=== PATIENT | female | born 1965 | race Caucasian/White ===

== ENCOUNTER 2016-10-08 12:28 | Emergency (ER) | payer MEDICARE, MEDICAID ==
[~2016-10-08] VITALS: Ht 170.2 cm; Wt 65.8 kg
--- NOTE | 2016-10-08 13:47 | ED Respiratory ---
General Chief Complaint: Dizziness/Syncope Stated Complaint: WEAKNESS/DIZZINESS Nursing Triage Note: c/o feeling dizzy with sore throat and cough. Noticed syptoms this morning. Source: patient Exam Limitations: no limitations History of Present Illness Time seen by provider: 13:36 Initial Comments Yesterday went for a walk with some friends for about 6 miles. She is not accustomed to walking this far. She today feels very wasted tired and has had 2 days of productive cough as well as nasal congestion and ears feeling full. She feels some nausea this morning but this is typical for her and she takes her methotrexate. She is on methotrexate and Humira for reported arthritis. She is concerned she may have contracted an infection and feels a little dehydrated. She states she felt warm but not check for a fever this morning. She denies presently having any nausea or pain outside of her usual joint discomfort. She denies rash, diarrhea. Allergies and Home Medications Allergies Coded Allergies: No Known Drug Allergies (Unverified , 10/08/16) Home Medications Azithromycin 250 Mg Tablet, 250 MG PO UD, #6 Ref 0 TAKE 2 TABLETS ON DAY ONE THEN TAKE 1 TABLET DAILY FOR FOUR MORE DAYS Prescribed by: LATOYA CHEUNG on 10/08/16 1716 Constitutional: see HPI, No chills, No diaphoresis, No fever, malaise, No weakness, No weight gain, No weight loss EENTM: see HPI Respiratory: see HPI, cough (occasional nonproductive), short of breath (mild on exertion), No wheezing Cardiovascular: No chest pain, No edema, No Hx of Intervention, No palpitations , No syncope Gastrointestinal: No abdominal pain, No constipation, No diarrhea, No nausea Genitourinary: No discharge, No dysuria Musculoskeletal: joint pain, No joint swelling (chronic) Skin: No pruritus, No rash Past Vtuinsd-Dctpgb-Djnnpw Hx Patient Social History Alcohol Use: Denies Use Recreational Drug Use: No Smoking Status: Current Everyday Smoker Recent Foreign Travel: No Contact w/Someone Who Travel: No Recent Infectious Disease Expo: No Musculoskeletal Musculoskeletal Disorders: Rheumatoid Arthritis Physical Exam Vital Signs Vital Sign - Last 12Hours 10/08/16 10/08/16 12:48 17:37 Temp 97.8 Pulse 105 Resp 16 B/P (MAP) 125/98 Pulse Ox 98 O2 Delivery Room Air Capillary Refill : Less Than 3 Seconds General Appearance: WD/WN, no apparent distress Eyes: Bilateral Eye EOMI, Bilateral Eye Normal Inspection, Bilateral Eye PERRL HEENT: PERRL/EOMI, normal ENT inspection, TMs normal, pharynx normal Neck: non-tender, supple, normal inspection Respiratory: chest non-tender, lungs clear, normal breath sounds, no respiratory distress, no accessory muscle use Cardiovascular: normal peripheral pulses, regular rate, rhythm, no murmur Gastrointestinal: normal bowel sounds, non tender, soft Extremities: normal range of motion, non-tender, normal inspection, no pedal edema, normal capillary refill, calf tenderness (bilateral), other (Toussaint's sign positive) Neurologic/Psychiatric: no motor/sensory deficits, alert, oriented x 3 Skin: normal color, warm/dry Focused Exam Evaluation Sepsis Stage: Ruled Out Reason for ruling out sepsis: no source or sign of bacterial infection found Time of Focused Exam: 13:45 Respiratory: Chest Non Tender, Lungs Clear, Normal Breath Sounds, No Accessory Muscle Use, No Respiratory Distress Cardiovascular: Regular Rate, Rhythm, No Edema, No Murmur, Normal Peripheral Pulses Capillary Refill: Less Than 3 Seconds Peripheral Pulses: 2+ Dorsalis Pedis (R), 2+ Left Dors-Pedis (L), 2+ Radial Pulses (R), 2+ Radial Pulses (L) Skin: normal color, warm/dry, No rash Lactic Acid Level Laboratory Tests Test 10/08/16 13:55 Lactic Acid Level 0.96 MMOL/L (0.50-2.00) Progress/Results/Core Measures Results/Orders Lab Results Laboratory Tests Test 10/08/16 13:55 10/08/16 14:00 10/08/16 14:52 Range/Units White Blood Count 6.4 4.3-11.0 10^3/uL Red Blood Count 4.58 4.35-5.85 10^6/uL Hemoglobin 14.4 11.5-16.0 G/DL Hematocrit 44 35-52 % Mean Corpuscular Volume 97 80-99 FL Mean Corpuscular Hemoglobin 31 25-34 PG Mean Corpuscular Hemoglobin Concent 33 32-36 G/DL Red Cell Distribution Width 18.1 H 10.0-14.5 % Platelet Count 211 130-400 10^3/uL Mean Platelet Volume 10.8 H 7.4-10.4 FL Neutrophils (%) (Auto) 64 42-75 % Lymphocytes (%) (Auto) 24 12-44 % Monocytes (%) (Auto) 9 0-12 % Eosinophils (%) (Auto) 3 0-10 % Basophils (%) (Auto) 1 0-10 % Neutrophils # (Auto) 4.1 1.8-7.8 X 10^3 Lymphocytes # (Auto) 1.6 1.0-4.0 X 10^3 Monocytes # (Auto) 0.6 0.0-1.0 X 10^3 Eosinophils # (Auto) 0.2 0.0-0.3 10^3/uL Basophils # (Auto) 0.0 0.0-0.1 10^3/uL D-Dimer 2.79 H 0.00-0.49 UG/ML Sodium Level 141 135-145 MMOL/L Potassium Level 3.9 3.6-5.0 MMOL/L Chloride Level 111 H 98-107 MMOL/L Carbon Dioxide Level 21 21-32 MMOL/L Anion Gap 9 5-14 MMOL/L Blood Urea Nitrogen 10 7-18 MG/DL Creatinine 0.69 0.60-1.30 MG/DL Estimat Glomerular Filtration Rate > 60 BUN/Creatinine Ratio 14 Glucose Level 93 70-105 MG/DL Lactic Acid Level 0.96 0.50-2.00 MMOL/L Calcium Level 9.9 8.5-10.1 MG/DL Total Bilirubin 0.4 0.1-1.0 MG/DL Aspartate Amino Transf (AST/SGOT) 52 H 5-34 U/L Alanine Aminotransferase (ALT/SGPT) 91 H 0-55 U/L Alkaline Phosphatase 68 40-136 U/L Total Creatine Kinase 41 29-168 U/L Troponin I < 0.30 <0.30 NG/ML C-Reactive Protein High Sensitivity 0.23 0.00-0.50 MG/DL Total Protein 7.6 6.4-8.2 G/DL Albumin 4.3 3.2-4.5 G/DL Urine Color YELLOW Urine Clarity CLEAR Urine pH 5 5-9 Urine Specific [place] 1.015 L 1.016-1.022 Urine Protein NEGATIVE NEGATIVE Urine Glucose (UA) NEGATIVE NEGATIVE Urine Ketones NEGATIVE NEGATIVE Urine Nitrite NEGATIVE NEGATIVE Urine Bilirubin NEGATIVE NEGATIVE Urine Urobilinogen NORMAL NORMAL MG/DL Urine Leukocyte Esterase NEGATIVE NEGATIVE Urine RBC (Auto) NEGATIVE NEGATIVE Urine RBC NONE /HPF Urine WBC 0-2 /HPF Urine Squamous Epithelial Cells 0-2 /HPF Urine Crystals NONE /LPF Urine Bacteria NEGATIVE /HPF Urine Casts NONE /LPF Urine Mucus NEGATIVE /LPF Urine Culture Indicated NO Urine Test NEGATIVE NEGATIVE Group A Streptococcus Screen NEGATIVE NEGATIVE My Orders Orders - LATOYA CHEUNG Cbc With Automated Diff (10/08/16 13:50) Comprehensive Metabolic Panel (10/08/16 13:50) Creatine Kinase (10/08/16 13:50) Fibrin Degradation Products (10/08/16 13:50) Hcg,Qualitative Urine (10/08/16 13:50) Lactic Acid Analyzer (10/08/16 13:50) Rapid Strep A Screen (10/08/16 13:50) Troponin I (10/08/16 13:50) Ua Culture If Indicated (10/08/16 13:50) Chest Pa/Lat (2 View) (10/08/16 13:50) Hs C Reactive Protein (10/08/16 13:50) Ns Iv 1000 Ml (Sodium Chloride 0.9%) (10/08/16 14:00) Ns Iv 500 Ml (Sodium Chloride 0.9%) (10/08/16 16:00) Ct Angio Chest W (10/08/16 15:52) Iohexol Injection (Omnipaque 350 Mg/Ml 1 (10/08/16 16:00) Ns (Ivpb) (Sodium Chloride 0.9% Ivpb Bag (10/08/16 16:00) Medications Given in ED Current Medications Medications Dose Ordered Sig/Tyrel Route Start Time Stop Time Status Last Admin Dose Admin Iohexol 150 ml ONCE ONCE IV 10/08/16 16:00 10/08/16 16:19 DC 10/08/16 16:09 125 ML Sodium Chloride 100 ml ONCE ONCE IV 10/08/16 16:00 10/08/16 16:19 DC 10/08/16 16:09 80 ML Vital Signs/I&O Vital Sign - Last 12Hours 10/08/16 10/08/16 12:48 17:37 Temp 97.8 97.8 Pulse 105 86 Resp 16 16 B/P (MAP) 125/98 Pulse Ox 98 O2 Delivery Room Air Room Air Blood Pressure Mean: 107 Progress Note #1: Time: 15:51 Progress Note CRP unremarkable. White blood cell count unreliable because of the humerus and methotrexate. The patient feels still [id number] short of breath and dizzy at times. This could be consistent with a pulmonary embolism. Also be consistent with having overdone it the other day on the trail. We will go ahead and get a CT with angiogram because she is with a spurious finding of possible lower left lower lobe density versus nipple shadow on the chest x-ray as well. She is a chronic pro-inflammatory state but has not been sedentary. She does have bilateral calf tenderness and Homans positive. Progress Note #2: Time: 17:07 Progress Note Discussed the findings and incidental findings of the patient and is felt this time she probably got URI with postnasal drip causing some myalgias probably from a virus. She also probably overdid it the other day on her walk and would do well to spend a day or 2 with a bottle of Gatorade and copious amounts of comfort foods and fluids. She should use Tylenol if she is having pain. Diagnostic Imaging Diagonstic Imaging: Xray Plain Films/CT/US/NM/MRI: chest Comments NAME: YELENAKHOI [facility] REC#: [id number] PHYSICIAN: LATOYA CHEUNG MD CC: SETH PUGA; LATOYA CHEUNG Page 1 of 1 RADIOLOGY REPORT VIA [facility] [place], [place] CC: SETH PUGA; LATOYA CHEUNG Page 1 of 1 RADIOLOGY REPORT NAME: KHOI KIRK [facility] REC#: [id number] PT STATUS: REG ER : 1965 PHYSICIAN: LATOYA CHEUNG MD ADMIT DATE: 10/08/16/ER Signed Date of Exam: 10/08/16 CHEST PA/LAT (2 VIEW) INDICATION: Cough and chest heaviness. FINDINGS: PA and lateral views of the chest were obtained. The heart size is normal. There is no pleural effusion or pneumothorax. Mediastinum is unremarkable. There is a nodular density in the left lung base. This may be nipple shadow. IMPRESSION: Nodular density in the left lung base. This may be nipple shadow. This could be confirmed with a repeat exam with nipple markers or CT chest. No other acute cardiopulmonary abnormality. Dictated by: Dictated on workstation # [id number] Dict: 10/08/16 1508 Trans: 10/08/16 1525 Interpreted by: SETH PUGA Electronically signed by: SETH PUGA 10/08/16 1525 Reviewed: Reviewed by Me Diagonstic Imaging: CT (angio) Plain Films/CT/US/NM/MRI: chest Comments VIA [facility] [place], [place] NAME: KHOI KIRK [facility] REC#: [id number] PT STATUS: REG ER : 1965 PHYSICIAN: LATOYA CHEUNG MD ADMIT DATE: 10/08/16/ER Draft Date of Exam:10/08/16 CT ANGIO CHEST W PROCEDURE: CT angiography of the chest with contrast. TECHNIQUE: Multiple contiguous axial images were obtained through the chest after uneventful bolus administration of intravenous contrast. Reconstructed CTA MIP acquisitions were also performed. INDICATION: Chest heaviness, productive cough. COMPARISON: There are no previous CTA chest examinations available for comparison. FINDINGS: The plain film examination of the chest performed earlier today failed to show any sign of an acute abnormality. On this study there is no defect within the pulmonary arteries to indicate a pulmonary embolus. The ascending aorta is slightly dilated, however, measuring 4.0 cm in maximum AP and transverse diameters. There is no sign of a dissection. The heart size is within normal limits. There is no mediastinal or hilar adenopathy. The lungs are generally clear. There is no evidence for failure, pneumonia or for a pleural effusion. The plain film exam raised the question of a nodular density overlying the left lung base. There is no parenchymal nodule in this area and I suspect the density seen on the plain film exam was related to superimposition. There is no mediastinal or hilar adenopathy. The sections through the upper abdomen failed to show any sign of an acute abnormality The liver is prominent and of lower density than usually seen. 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 There is no obvious breast mass identified. According to our records, the patient has not had a mammogram in more than two years. Mammography would be recommend for further study. The bone windows show no sign of a fracture or for a destructive lesion. IMPRESSION: 1. There is no evidence for an acute cardiopulmonary abnormality. In particular, there is no sign of a pulmonary embolus. 2. The ascending aorta is borderline enlarged. There is no evidence for a dissection. 3. The appearance of the liver does suggest fatty metamorphosis. 4. There is no obvious breast mass. Recommendations as above. Dictated on workstation # [id number] Dict: 10/08/16 1628 Trans: 10/08/[address] [facility] [id number] Interpreted by: TERE GARCIAS MD Electronically signed by: Departure Impression Impression: Primary Impression: SOB (shortness of breath) on exertion Additional Impressions: Myalgia Pharyngitis Qualified Codes: J02.9 - Acute pharyngitis, unspecified Disposition: HOME, SELF-CARE Condition: Improved Departure-Patient Inst. Decision time for Depature: 17:09 Referrals: NO,LOCAL PHYSICIAN (PCP) Primary Care Physician Patient Instructions: Sore Throat, Adult (DC) Add. Discharge Instructions: You have been worked up extensively to exclude shortness of breath and chest discomfort from your heart or from a pulmonary embolism, a clot in the lungs. Your symptoms seem to be due more from a upper respiratory infection likely a virus that is causing muscle aches and sore throat. A rapid strep test was negative and a culture is been sent and will be available within 2-3 days if you call to the ER for results. You did have some elevated liver enzymes and a fatty liver seen on the CAT scan. This should be followed up by your primary care physician eventually. Incidentally on your CAT scan you're found to have a mildly dilated ascending aorta of 4.0 cm. This is of no concern today but should be followed by primary care physician. The nodule seen on your chest x-ray was not seen on your CAT scan is probably due to superimposition. If you're having worsening pain, shortness of breath, weakness or other worrisome symptoms should return to the ER otherwise he can follow-up in the next week or 2 with a primary care. If you do not have a primary care physician you should establish with one. 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 Take with food. All discharge instructions reviewed with patient and/or family. Voiced understanding. Scripts Azithromycin (Azithromycin) 250 Mg Tablet 250 MG PO UD, #6 TAB 0 Refills TAKE 2 TABLETS ON DAY ONE THEN TAKE 1 TABLET DAILY FOR FOUR MORE DAYS Prov: LATOYA CHEUNG 10/08/16 Work/School Note: Work Release Form Date Seen in the Emergency Department: Oct 08, 2016 Return to Work: Oct 09, 2016 Restrictions: No Restrictions LATOYA CHEUNG Oct 08, 2016 13:47
[2016-10-08] MEDS ORDERED: NS IV 1000 ML 1,000 ML IV SCH (14:00)
[2016-10-08 14:15] LABS: BASOPHILS % (AUTO) 1 % (0-10); EOSINOPHILS # (AUTO) 0.2 10^3/uL (0.0-0.3); EOSINOPHILS % (AUTO) 3 % (0-10); LYMPHOCYTES # (AUTO) 1.6 X 10^3 (1.0-4.0); LYMPHOCYTES % (AUTO) 24 % (12-44); MEAN CORPUSCULAR HEMOGLOBIN 31 PG (25-34); MEAN CORPUSCULAR HGB CONC 33 G/DL (32-36); MEAN CORPUSCULAR VOLUME 97 FL (80-99); MEAN PLATELET VOLUME 10.8 FL (7.4-10.4); MONOCYTES # (AUTO) 0.6 X 10^3 (0.0-1.0); MONOCYTES % (AUTO) 9 % (0-12); NEUTROPHILS # (AUTO) 4.1 X 10^3 (1.8-7.8); NEUTROPHILS % (AUTO) 64 % (42-75); PLATELET COUNT 211 10^3/uL (130-400); RED BLOOD COUNT 4.58 10^6/uL (4.35-5.85); RED CELL DISTRIBUTION WIDTH 18.1 % (10.0-14.5); WHITE BLOOD COUNT 6.4 10^3/uL (4.3-11.0)
[2016-10-08 14:24] LABS: BILIRUBIN,URINE NEGATIVE (NEGATIVE); KETONES,URINE NEGATIVE (NEGATIVE); LEUKOCYTE ESTERASE ,URINE NEGATIVE (NEGATIVE); NITRITE,URINE NEGATIVE (NEGATIVE); PH,URINE 5 (5-9); PROTEIN,URINE NEGATIVE (NEGATIVE); UROBILINOGEN,URINE NORMAL (NORMAL)
[2016-10-08 14:38] LABS: ALANINE AMINOTRANSFERASE 91 U/L (0-55); ALBUMIN 4.3 G/DL (3.2-4.5); ANION GAP 9 MMOL/L (5-14); ASPARTATE AMINO TRANSFERASE 52 U/L (5-34); BILIRUBIN,TOTAL 0.4 MG/DL (0.1-1.0); BLOOD UREA NITROGEN 10 MG/DL (7-18); BUN/CREATININE RATIO 14; CALCIUM 9.9 MG/DL (8.5-10.1); CARBON DIOXIDE 21 MMOL/L (21-32); CHLORIDE 111 MMOL/L (98-107); CREATINE KINASE 41 U/L (29-168); CREATININE SERUM 0.69 MG/DL (0.60-1.30); GFR ESTIMATED > 60; GLUCOSE 93 MG/DL (70-105); POTASSIUM 3.9 MMOL/L (3.6-5.0); SODIUM 141 MMOL/L (135-145); TOTAL PROTEIN 7.6 G/DL (6.4-8.2); hs C REACTIVE PROTEIN 0.23 MG/DL (0.00-0.50)
[2016-10-08 14:41] LABS: SQUAMOUS EPITHELIAL CELL,UR 0-2 /HPF; WBC,URINE 0-2 /HPF
[2016-10-08 14:44] LABS: TROPONIN I < 0.30 NG/ML (<0.30)
--- NOTE | 2016-10-08 15:19 | Diagnostic Imaging Report ---
INDICATION: Cough and chest heaviness. FINDINGS: PA and lateral views of the chest were obtained. The heart size is normal. There is no pleural effusion or pneumothorax. Mediastinum is unremarkable. There is a nodular density in the left lung base. This may be nipple shadow. IMPRESSION: Nodular density in the left lung base. This may be nipple shadow. This could be confirmed with a repeat exam with nipple markers or CT chest. No other acute cardiopulmonary abnormality. Dictated by: Dictated on workstation # [id number]
[2016-10-08] MEDS ORDERED: NS IV 500 ML 500 ML IV SCH (16:00)
[2016-10-08] MEDS ORDERED: IOHEXOL 350 MG/ML 150 ML (OMNIPAQUE 350) VIAL IV ONE (16:00)
[2016-10-08] MEDS ORDERED: NS 100 ML (IVPB) BAG IV ONE (16:00)
--- NOTE | 2016-10-08 16:54 | Diagnostic Imaging Report ---
PROCEDURE: CT angiography of the chest with contrast. TECHNIQUE: Multiple contiguous axial images were obtained through the chest after uneventful bolus administration of intravenous contrast. Reconstructed CTA MIP acquisitions were also performed. INDICATION: Chest heaviness, productive cough. COMPARISON: There are no previous CTA chest examinations available for comparison. FINDINGS: The plain film examination of the chest performed earlier today failed to show any sign of an acute abnormality. On this study there is no defect within the pulmonary arteries to indicate a pulmonary embolus. The ascending aorta is borderline dilated, however, measuring 4.0 cm in maximum AP and transverse diameters. There is no sign of a dissection. The heart size is within normal limits. There is no mediastinal or hilar adenopathy. The lungs are generally clear. There is no evidence for failure, pneumonia or for a pleural effusion. The plain film exam raised the question of a nodular density overlying the left lung base. There is no parenchymal nodule in this area and I suspect the density seen on the plain film exam was related to superimposition. There is no mediastinal or hilar adenopathy. The sections through the upper abdomen failed to show any sign of an acute abnormality The liver is prominent and of lower density than usually seen. 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 There is no obvious breast mass identified. According to our records, the patient has not had a mammogram in more than two years. Mammography would be recommend for further study. The bone windows show no sign of a fracture or for a destructive lesion. IMPRESSION: 1. There is no evidence for an acute cardiopulmonary abnormality. In particular, there is no sign of a pulmonary embolus. 2. The ascending aorta is borderline enlarged. There is no evidence for a dissection. 3. The appearance of the liver does suggest fatty metamorphosis. 4. There is no obvious breast mass. Recommendations as above. Dictated by: Dictated on workstation # [id number]
[2016-10-08] MEDS ORDERED: AZIT250T5 PO (17:16)
[2016-10-08 17:37] VITALS: BP 125/88
== END 2016-10-08 17:37 | disposition home or self-care (01) ==
LOC: EDUNIT# 12:28 → ER 12:31
DX: J02.9 Acute pharyngitis, unspecified (principal); R06.02 Shortness of breath; F17.210 Nicotine dependence, cigarettes, uncomplicated
CPT/HCPCS: 36415; 71020; 71275; 80053; 81000; 82550; 83605; 84484; 84703; 85025; 85379; 86141; 87430

== ENCOUNTER 2017-01-01 19:43 | Emergency (ER) | payer MEDICARE, MEDICAID ==
[~2017-01-01] VITALS: Ht 170.2 cm; Wt 65.8 kg
[~2017-01-01 19:43] MED LIST: AZIT250T5 PO
--- OUTSIDE RECORDS SUMMARY | 2017-01-01 19:50 | XMS REPORT | Continuity of Care Document ---
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
--- OUTSIDE RECORDS SUMMARY | 2017-01-01 19:50 | XMS REPORT | Clinical Summary ---
Author Author [facility] Organization [facility] Address Unknown Phone Unavailable Care Team Providers Care Library Acquisitions Technician Name Role Phone PCP Unavailable Source Comments Some departments are not documenting in the electronic medical record. If you do not see the information that you expected, contact Release of Information in the Health Information Management department at [phone] for further assistance in locating additional records.[facility] Allergies Active Allergy Reactions Severity Noted Date Comments Prednisone MENTAL STATUS CHANGES Medium 05/30/2016 Agitation and confusion Current Medications Prescription Sig. Disp. Refills Start End Date Status Date clindamycin(+) (CLEOCIN Apply to bumps on neck, 60 mL 3 01/24/20 Active T; CLINDAMAX) 1 % topical back and buttock twice 16 lotion daily. Aloe Vera 5,000 mg cap Take 1 Cap by mouth Active daily. MULTIVITAMIN WITH Take 1 Tab by mouth Active MINERALS (MULTIVITAMIN & daily. MINERAL FORMULA PO) other medication Take 1 Dose by mouth Active daily. Aqua Tg Silver docusate (COLACE) 100 mg Take 1 Cap by mouth twice 60 Cap 0 06/08/19 Active capsule daily. 17 sertraline (ZOLOFT) 50 mg Take 1 Tab by mouth 60 Tab 0 06/13/19 Active tablet daily. 17 methotrexate sodium Take 10 Tabs by mouth 120 Tab 1 10/03/19 Active (RHEUMATREX) 2.5 mg every 7 days. 17 tablet ondansetron (ZOFRAN) 4 mg Take 1 Tab by mouth every 60 Tab 1 10/03/19 Active tablet 8 hours as needed for 17 Nausea or Vomiting. chlorzoxazone(+) (PARAFON Take 1 Tab by mouth twice 60 Tab 0 10/03/19 Active FORTE) 500 mg tablet daily. 17 folic acid (FOLVITE) 1 mg Take 2 Tabs by mouth 180 Tab 3 10/03/19 Active tablet daily. 17 adalimumab(+) (HUMIRA Inject 40 mg under the 6 Each 1 11/07/19 Active PEN) 40 mg/0.8 mL skin every 14 days. 17 injection penIndications: Indications: RHEUMATOID RHEUMATOID ARTHRITIS ARTHRITIS traMADol (ULTRAM) 50 mg Take 1-2 tab every 6 120 Tab 2 11/24/19 Active tablet hours as needed for pain. 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 Back pain 02/21/2016 Overview: Hx injury 7 years ago falling down stairs Per pt herniated disc and spinal stenosis Constipation 02/21/2016 Last Assessment & Plan: See above Rheumatoid arthritis involving multiple sites ([facility]) 12/17/2015 S/P cholecystectomy 12/17/2015 Fever 12/17/2015 Cervical cancer ([facility]) 12/17/2015 Overview: Early 20s Urinary incontinence 12/17/2015 Overview: Large leak on exam with valsalva 5 pads /day Last Assessment & Plan: Timed and double void Avoid constipation - daily miralax Decrease soda MRI of back~ Lumbar and Sacral MRI URD with and without pessary Bactrim 2 doses Erx and reviewed dosing FU 4 months Encounters Date Type Specialty Care Team Description 12/22/2016 Telephone Allergy,Immunology and Roro Jama MD Follow- up Phone Call Rheumatology 12/05/2016 Telephone Allergy,Immunology and Roro Jama MD Prior Authorization Rheumatology ([facility]) 11/27/2016 Telephone Allergy,Immunology and Roro Jama MD Medication Follow-up Rheumatology 11/20/2016 Refill Allergy,Immunology and Roro Jama MD Rheumatology 11/03/2016 Telephone Allergy,Immunology and Roro Jama MD Prior Authorization Rheumatology (Humira ); Lab Request (Hair follicle testing ) 11/03/2016 Telephone Clinical Pharmacology Roro Jama MD Error ( disregard) 10/26/2016 Telephone Clinical Pharmacology Roro Jama MD Medication Follow-up (Chlorzoxazone non-formulary) 10/25/2016 Telephone Allergy,Immunology and Roro Jama MD Follow- up Phone Call Rheumatology 10/24/2016 Telephone Allergy,Immunology and Roro Jama MD Results Rheumatology 10/23/2016 Hospital Roro Jama MD Rheumatoid arthritis with Encounter rheumatoid factor of multiple sites without organ or systems involvement (HCC) 10/23/2016 Office Visit Allergy,Immunology and Roro Jama MD Rheumatoid arthritis Rheumatology involving multiple sites with positive rheumatoid factor (HCC) (Primary Dx) 10/23/2016 Telephone Allergy,Immunology and Roro Jama MD Follow- up Phone Call Rheumatology 10/16/2016 Telephone Allergy,Immunology and Roro Jama MD Medication Follow-up Rheumatology 10/09/2016 Telephone Allergy,Immunology and Roro Jaam MD Medication Follow-up Rheumatology 10/09/2016 Telephone Allergy,Immunology and Roro Jama MD Follow- up Phone Call Rheumatology 10/02/2016 Telephone Allergy,Immunology and Roro Jama MD Follow- up Phone Call; Rheumatology Medication Refill from Last 3 Months Immunizations Name Dates Previously Given Next Due Pneumococcal Vaccine 07/24/2016 (23-Sudha Adult) Pneumococcal 12/17/2015 Vaccine(13-Sudha Peds/immunocompromised adult) Family History Medical History Relation Name Comments Heart Disease Father Heart Disease Paternal Grandmother Tumor Son Relation Name Status Comments Brother Alive Daughter Alive Father Alive Mother Alive Paternal Grandmother Sister Alive Son Alive Social History Tobacco Use Types Packs/Day Years Used Date Current Every Day Smoker Cigarettes 0.25 30 Smokeless Tobacco: Never Used Tobacco Cessation: Ready to Quit: Yes; Counseling Given: Yes Comments: in process of quitting Alcohol Use Drinks/Week oz/Week Comments No 0 Standard 0.0 drinks or equivalent Sex Assigned at Date Recorded Not on file Last Filed Vital Signs Vital Sign Reading Time Taken Blood Pressure 115/84 10/23/2016 9:23 AM CDT Pulse 72 10/23/2016 9:23 AM CDT Temperature 37.1 C (98.8 F) 10/23/2016 9:23 AM CDT Respiratory Rate 16 07/24/2016 10:51 AM CDT Oxygen Saturation 100% 06/08/2016 3:17 PM 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 - - Concentration Weight 65.5 kg (144 lb 6.4 oz) 10/23/2016 9:23 AM CDT Height 170.2 cm (5' 7") 10/23/2016 9:23 AM CDT Body Mass Index 22.62 10/23/2016 9:23 AM CDT Plan of Treatment Health Maintenance Due Date Last Done Comments PHYSICAL (COMPREHENSIVE) 1971 EXAM PERTUSSIS VACCINE 1975 TETANUS VACCINE 1981 CERVICAL CANCER SCREENING 1994 BREAST CANCER SCREENING 2004 COLORECTAL CANCER 2014 SCREENING INFLUENZA VACCINE 12/29/2016 HEPATITIS C SCREENING Completed 12/22/2015 Implants 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 [employer]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 Device Expiration Model / Identifier Date Serial / Lot Cement Bone Palacos Lv+G Gentamicin Right: CHRISTEN:CHRISTEN 01/27/2018 [id number] 40gm Green Elbow US 1 / Implanted: Qty: 2 on 06/07/2016 by [id number] Иван Martinez MD 1 [id number] Humeral Screw Kit Right: CHRISTEN:CHRISTEN 11/27/2025 [id number] Implanted: Qty: 1 on 06/07/2016 by Elbow US 0 / Иван Martinez MD [id number] Christen Nexel Total Elbow Ulnar Right: 04/29/2025 [id number] Component Elbow 7 / Implanted: Qty: 1 on 06/07/2016 by [id number] Иван Martinez MD [id number] Stem Humeral 100mm 4mm Elbow Right: CHRISTEN: ORTHO 08/27/2025 [id number] Implanted: Qty: 1 on 06/07/2016 by Mikey 0 / Иван Martinez MD [id number] Kit Articulation Nexel 4 Right: UNIDENTIFIED 10/28/2019 Implanted: Qty: 1 on 06/07/2016 by Mikey [facility] [place] Иван Martinez MD [id number] Results * CBC AND DIFF (10/23/2016 10:44 AM) Component Value Ref Range White Blood Cells 10.3 4.5 - 11.0 K/UL RBC 4.57 4.0 - 5.0 M/UL Hemoglobin 14.8 12.0 - 15.0 GM/DL Hematocrit 43.6 36 - 45 % MCV 95.4 80 - 100 FL MCH 32.4 26 - 34 PG MCHC 34.0 32.0 - 36.0 G/DL RDW 18.0 (H) 11 - 15 % Platelet Count 346 150 - 400 K/UL MPV 8.5 7 - 11 FL Neutrophils 62 41 - 77 % Lymphocytes 26 24 - 44 % Monocytes 8 4 - 12 % Eosinophils 3 0 - 5 % Basophils 1 0 - 2 % Absolute Neutrophil Count 6.40 1.8 - 7.0 K/UL Absolute Lymph Count 2.70 1.0 - 4.8 K/UL Absolute Monocyte Count 0.90 (H) 0 - 0.80 K/UL Absolute Eosinophil Count 0.30 0 - 0.45 K/UL Absolute Basophil Count 0.10 0 - 0.20 K/UL Specimen Performing Laboratory Blood MAIN LAB [address] [place] [address] * C REACTIVE PROTEIN (CRP) (10/23/2016 10:44 AM) Component Value Ref Range C-Reactive Protein 0.23 <1.0 MG/DL Specimen Performing Laboratory Blood MAIN [facility] [address] [place] [address] * COMPREHENSIVE METABOLIC PANEL (10/23/2016 10:44 AM) Component Value Ref Range Sodium 141 137 - 147 MMOL/L Potassium 4.3 3.5 - 5.1 MMOL/L Chloride 107 98 - 110 MMOL/L Glucose 88 70 - 100 MG/DL Blood Urea Nitrogen 13 7 - 25 MG/DL Creatinine 0.80 0.4 - 1.00 MG/DL Calcium 9.9 8.5 - 10.6 MG/DL Total Protein 7.9 6.0 - 8.0 G/DL Total Bilirubin 0.3 0.3 - 1.2 MG/DL Albumin 4.6 3.5 - 5.0 G/DL Alk Phosphatase 67 25 - 110 U/L AST (SGOT) 19 7 - 40 U/L CO2 28 21 - 30 MMOL/L ALT (SGPT) 19 7 - 56 U/L Anion Gap 6 3 - 12 eGFR Non >60 >60 mL/min Comment: The eGFR is not validated for use in drug dosing adjustments. Continue to use estimated creatinine clearance per dosing reference text. Please contact the Clinical Pharmacist for questions. eGFR >60 >60 mL/min Comment: The eGFR is not validated for use in drug dosing adjustments. Continue to use estimated creatinine clearance per dosing reference text. Please contact the Clinical Pharmacist for questions. Specimen Performing Laboratory Blood [facility] [address] [place] [address] from Last 3 Months
--- OUTSIDE RECORDS SUMMARY | 2017-01-01 19:51 | XMS REPORT | Encounter Summary ---
Author Author [facility] Organization [facility] Address Unknown Phone Unavailable Care Team Providers Care In Home Nanny Name Role Phone PCP Unavailable Reason for Visit * Reason Comments Follow-up Phone Call Encounter Details Date Type Department Care Team Description 10/25/2016 Telephone [facility] Roro Jama MD Follow-up Phone Call Physicians - Internal [address] [facility] Medicine [place] [address] [facility] [place] [address] OFFICE BLDG [phone] [address] [place] [address] Social History Tobacco Use Types Packs/Day Years Used Date Current Every Day Smoker Cigarettes 0.25 30 Smokeless Tobacco: Never Used Comments: in process of quitting Alcohol Use Drinks/Week oz/Week Comments No 0 Standard 0.0 drinks or equivalent Sex Assigned at Date Recorded Not on file as of this encounter Functional Status Functional Status Response Date of Assessment Does the patient have a hearing impairment: No 06/08/2016 Does the patient have a visual impairment: No 06/08/2016 Does the patient have impaired ambulation: No 06/08/2016 Does the patient have an activity of daily living No 06/08/2016 (ADL) impairment: Does the patient have an instrumental activity of No 06/08/2016 daily living (IADL) impairment: Cognitive Status Response Date of Assessment Does the patient have a cognitive impairment: No 06/08/2016 as of this encounter Plan of Treatment Not on fileas of this encounter Visit Diagnoses Not on filein this encounter
--- OUTSIDE RECORDS SUMMARY | 2017-01-01 19:51 | XMS REPORT | Encounter Summary ---
Author Author [facility] Organization [facility] Address Unknown Phone Unavailable Care Team Providers Care Chief Writer Name Role Phone PCP Unavailable Reason for Visit * Reason Comments Medication Refill Encounter Details Date Type Department Care Team Description 11/20/2016 Refill [facility] Roro Jama MD Physicians - Internal [address] [facility] Medicine [place] [address] [facility] [place] [address] OFFICE BLDG [phone] [address] [address] Social History Tobacco Use Types [...]
--- OUTSIDE RECORDS SUMMARY | 2017-01-01 19:51 | XMS REPORT | Encounter Summary ---
Author Author [facility] Organization [facility] Address Unknown Phone Unavailable Care Team Providers Care Skip Tender Name Role Phone PCP Unavailable Reason for Visit * Reason Comments Medication Follow-up Chlorzoxazone non-formulary Encounter Details Date Type Department Care Team Description 10/26/2016 Telephone [facility] Roro Jama MD Medication Follow-up Physicians - Clinical [address] (Chlorzoxazone Pharmacology [place] 10[address] non-formulary) [address] [place] [address] PAV [phone] [place] [address] Social History Tobacco Use Types Packs/Day Years [...]
--- OUTSIDE RECORDS SUMMARY | 2017-01-01 19:51 | XMS REPORT | Encounter Summary ---
Author Author [facility] Organization [facility] Address Unknown Phone Unavailable Care Team Providers Care Instrument Setter Name Role Phone PCP Unavailable Reason for Visit * Reason Comments Results Encounter Details Date Type Department Care Team Description 10/24/2016 Telephone [facility] Roro Jama MD Results Physicians - Internal [address] [facility] Medicine [place] [address] [facility] [place] [address] OFFICE BLDG [phone] [address] [place] [address] Social History Tobacco Use Types [...]
--- OUTSIDE RECORDS SUMMARY | 2017-01-01 19:51 | XMS REPORT | Encounter Summary ---
Author Author [facility] Organization [facility] Address Unknown Phone Unavailable Care Team Providers Care Community Outreach Specialist Name Role Phone PCP Unavailable Reason for Visit * Reason Comments Error disregard Encounter Details Date Type Department Care Team Description 11/03/2016 Telephone [facility] Roro Jama MD Error ( disregard) Physicians - Clinical [address] Pharmacology [place] [address] [place] [address] PAV [phone] [place] [address] Social History Tobacco Use Types Packs/Day Years [...]
--- OUTSIDE RECORDS SUMMARY | 2017-01-01 19:51 | XMS REPORT | Encounter Summary ---
Author Author [facility] Organization [facility] Address Unknown Phone Unavailable Care Team Providers Care Digital Imaging Specialist Name Role Phone PCP Unavailable Reason for Visit * Reason Comments Medication Follow-up Encounter Details Date Type Department Care Team Description 10/16/2016 Telephone [facility] Roro Jama MD Medication Follow-up Physicians - Internal [address] [facility] Medicine [place] [address] [facility] [place] [address] OFFICE BLDG [phone] [address] [address] Social History Tobacco Use Types [...]
--- OUTSIDE RECORDS SUMMARY | 2017-01-01 19:51 | XMS REPORT | Encounter Summary ---
Author Author [facility] Organization [facility] Address Unknown Phone Unavailable Care Team Providers Care Duty Officer Name Role Phone PCP Unavailable Reason for Visit * Reason Comments Medication Follow-up Encounter Details Date Type Department Care Team Description 11/27/2016 Telephone [facility] Roro Jama MD Medication Follow-up Physicians - Internal [address] [facility] Medicine [place] [address] [facility] [place] [address] OFFICE BLDG [phone] [address] [place] [address] Social History Tobacco Use Types [...]
--- OUTSIDE RECORDS SUMMARY | 2017-01-01 19:51 | XMS REPORT | Encounter Summary ---
Author Author [facility] Organization [facility] Address Unknown Phone Unavailable Care Team Providers Care Security And Privacy Consultant Name Role Phone PCP Unavailable Reason for Visit * Reason Comments Medication Follow-up Encounter Details Date Type Department Care Team Description 10/09/2016 Telephone [facility] Roro Jama MD Medication Follow-up Physicians - Internal [address] [facility] Medicine [place] [address] [facility] [place] [address] OFFICE BLDG [phone] [address] [place] [address] Social History Tobacco Use Types [...]
--- OUTSIDE RECORDS SUMMARY | 2017-01-01 19:51 | XMS REPORT | Encounter Summary ---
Author Author [facility] Organization [facility] Address Unknown Phone Unavailable Care Team Providers Care Academic Coach Name Role Phone PCP Unavailable Reason for Visit * Reason Comments Follow-up Phone Call Encounter Details Date Type Department Care Team Description 12/22/2016 Telephone [facility] Roro Jama MD Follow-up Phone Call Physicians - Internal [address] [facility] Medicine [place] [address] [facility] [place] [address] OFFICE BLDG [phone] [address] [address] Social History Tobacco Use Types [...]
--- OUTSIDE RECORDS SUMMARY | 2017-01-01 19:51 | XMS REPORT | Encounter Summary ---
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
--- OUTSIDE RECORDS SUMMARY | 2017-01-01 19:51 | XMS REPORT | Encounter Summary ---
Author Author [facility] Organization [facility] Address Unknown Phone Unavailable Care Team Providers Care Kettle Fry Cook Operator Name Role Phone PCP Unavailable Reason for Visit * Reason Comments Follow-up Phone Call Encounter Details Date Type Department Care Team Description 10/23/2016 Telephone [facility] Roro Jama MD Follow-up Phone Call Physicians - Internal [address] [facility] Medicine [place] [address] [facility] [place] [place] [address] OFFICE BLDG [phone] [address] [place] [address] Social History Tobacco Use Types [...]
--- OUTSIDE RECORDS SUMMARY | 2017-01-01 19:51 | XMS REPORT | Encounter Summary ---
Author Author [facility] Organization [facility] Address Unknown Phone Unavailable Care Team Providers Care Dispensary Technician Name Role Phone PCP Unavailable Reason for Visit * Reason Comments Follow-up Phone Call Encounter Details Date Type Department Care Team Description 10/09/2016 Telephone [facility] Roro Jama MD Follow-up Phone Call Physicians - Internal [address] [facility] Medicine [place] [address] [facility] [place] [address] OFFICE BLDG [phone] [address] [place] [address] Social History Tobacco Use Types [...]
--- OUTSIDE RECORDS SUMMARY | 2017-01-01 19:51 | XMS REPORT | Encounter Summary ---
Author Author [facility] Address Unknown Phone Unavailable Care Team Providers Care Galvanizer Zinc Name Role Phone PCP Unavailable Reason for Visit * Reason Comments Joint Pain Encounter Details Date Type Department Care Team Description 10/23/[address] [facility] Roro Jama MD Rheumatoid arthritis Physicians - Internal [address] involving multiple sites Medicine [address]44 with positive rheumatoid [address] [place] [address] factor (HCC) (Primary Dx) OFFICE BLDG [phone] [address] [place] [address] Social History Tobacco Use Types Packs/Day Years Used Date Current Every Day Smoker Cigarettes 0.25 30 Smokeless Tobacco: Never Used Comments: in process of quitting Alcohol Use Drinks/Week oz/Week Comments No 0 Standard 0.0 drinks or equivalent Sex Assigned at Date Recorded Not on file as of this encounter Last Filed Vital Signs Vital Sign Reading Time Taken Blood Pressure 115/84 10/23/2016 9:23 AM CDT Pulse 72 10/23/2016 9:23 AM CDT Temperature 37.1 C (98.8 F) 10/23/2016 9:23 AM CDT Respiratory Rate - - Oxygen Saturation - - Inhaled Oxygen - - Concentration Weight 65.5 kg (144 lb 6.4 oz) 10/23/2016 9:23 AM CDT Height 170.2 cm (5' 7") 10/23/2016 9:23 AM CDT Body Mass Index 22.62 10/23/2016 9:23 AM CDT in this encounter Functional Status Functional Status Response [...] impairment: No 06/08/2016 as of this encounter Instructions * Patient Instructions - Roro Jaam MD - 10/23/2016 10:12 AM CDT 1. Restart methotrexate if repeat liver enzymes. 2. Continue with Humira. 3. Update blood work today. in this encounter Progress Notes * Roro Jama MD - 10/23/2016 9:18 AM CDT Formatting of this note may be different from the original. Date of Service: 10/23/2016 Subjective: Yvonne Lozano is a 51 y.o. female. History of Present Illness Ms. Lozano returns for follow-up of seropositive rheumatoid arthritis. Ms. Lozano was diagnosed with rheumatoid arthritis in early 2014. She was started on methotrexate 15 mg weekly. She received variable doses of prednisone but had multiple side effects. In 08/2015, she underwent a cholecystectomy. She had fever and abdominal pain that had been ongoing since the surgery at the time of the initial consultation at Rheumatology in 2015. As a result, blood cultures and CT abdomen were obtained that were unrevealing for infection. Tuberculosis and hepatitis testing were negative. Methotrexate subsequently was increased to 25 mg weekly. In addition, adalimumab was prescribed and started in mid February 2016. 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 She returns today since her last visit; she has been under a significant amount of stress recently. She had to move into a safe house due to issues with her ex -. There have been issues with transferring her prescriptions but currently this has now all been arranged. She did have to present to the emergency room for an upper respiratory infection in the last few weeks. This occurred after taking very prolonged walk and then later that day she felt quite unwell. She did have laboratory testing which included an ALT elevated to 91 and AST elevated to 52. Methotrexate was held until her current visit. There was comment on fatty changes of the liver. The ascending aorta was borderline enlarged at 4 cm. She also reports seeing the eye doctor last week and it was recommended that she return for follow-up in 1 month for close monitoring from the standpoint of rheumatoid arthritis. She did restart on adalimumab last week. She is remained off the methotrexate. In the last week she has noticed increasing joint symptoms including significant stiffness. Multiple joints are really impacted including the right jaw. Past medical history: 1. Rheumatoid arthritis. 2. Cholecystectomy for cholecystitis. 3. Distant cervical cancer diagnosed in the early 20s. 4. Moh's surgery for basal cell carcinoma 02/2016. 5. Tubal ligation. 6. Right total elbow arthroplasty 05/2016. Family history: Father, heart disease. No family members with any rheumatoid arthritis or other autoimmune conditions. Social history: Tobacco: Using a half pack per day. Interested in quitting over time. Ethanol: None. Immunization status: PCV13 11/2015. PPSV23 06/2016. Cardiovascular risk assessment: Blood pressure is at goal. Will need ongoing monitoring for hyperlipidemia. Review of Systems Constitutional: Positive for chills, diaphoresis and fatigue. HENT: Positive for dental problem, hearing loss, mouth sores, nosebleeds, postnasal drip and sore throat. Eyes: Positive for photophobia and itching. Respiratory: Positive for cough and shortness of breath. Gastrointestinal: Positive for abdominal pain and abdominal distention. Endocrine: Positive for cold intolerance and heat intolerance. Excess dry mouth Musculoskeletal: Positive for myalgias, back pain, joint swelling, arthralgias, neck pain and neck stiffness. Skin: Positive for rash. Neurological: Positive for headaches. Hematological: Positive for adenopathy. Bruises/bleeds easily. Psychiatric/Behavioral: Positive for sleep disturbance. The patient is nervous/ anxious. Depression All other systems reviewed and are negative. Objective: adalimumab(+) (HUMIRA PEN) 40 mg/0.8 mL injection pen Inject 40 mg under the skin every 14 days. Indications: RHEUMATOID ARTHRITIS Aloe Vera 5,000 mg cap Take 1 Cap by mouth daily. chlorzoxazone(+) (PARAFON FORTE) 500 mg tablet Take 1 Tab by mouth twice daily. clindamycin(+) (CLEOCIN T; CLINDAMAX) 1 % topical lotion Apply to bumps on neck, back and buttock twice daily. (Patient taking differently: twice daily as needed. Apply to bumps on neck, back and buttock twice daily.) docusate (COLACE) 100 mg capsule Take 1 Cap by mouth twice daily. folic acid (FOLVITE) 1 mg tablet Take 2 Tabs by mouth daily. methotrexate sodium (RHEUMATREX) 2.5 mg tablet Take 10 Tabs by mouth every 7 days. MULTIVITAMIN WITH MINERALS (MULTIVITAMIN & MINERAL FORMULA PO) Take 1 Tab by mouth daily. ondansetron (ZOFRAN) 4 mg tablet Take 1 Tab by mouth every 8 hours as needed for Nausea or Vomiting. other medication Take 1 Dose by mouth daily. Aqua Tg Silver oxyCODONE/acetaminophen (PERCOCET; ENDOCET; ROXICET) 5/325 mg tablet Take 1- 2 Tabs by mouth every 6 hours as needed for Pain sertraline (ZOLOFT) 50 mg tablet Take 1 Tab by mouth daily. traMADol (ULTRAM) 50 mg tablet Take 1 tab every 4-6 hours as needed for pain. Filed Vitals: 10/23/16 0923 BP: 115/84 Pulse: 72 Temp: 37.1 C (98.8 F) TempSrc: Oral Height: 170.2 cm (67") Weight: 65.499 kg (144 lb 6.4 oz) Body mass index is 22.61 kg/(m^2). Physical Exam General: Alert and oriented, no acute distress. Eye: Clear conjunctiva and lids. HEENT: Moist mucous membranes with no oral or nasal ulcers. Lymph: No cervical or supraclavicular lymphadenopathy. CV: Regular rate and rhythm; no murmur/gallop/rub. Vessels: Normal radial and pedal pulses. Pulm: Clear to auscultation bilaterally. Abdomen: Soft, nontender, nondistended. No hepatosplenomegaly appreciated. Skin: No rash appreciated including malar rash, heliotrope rash, Gottron's papules, sclerodactyly, telangiectasias, or psoriatic plaques. MSK: Right TMJ with crepitus. No tenderness or swelling over the sternoclavicular joints, acromioclavicular joints, or shoulders. Right elbow with tenderness and swelling with reduced range of motion. Left elbow without tenderness or swelling. Left wrist with swelling. Bilateral MCP compression test positive. Right MCP 1 through 5 tender. Left MCP 35 tender. Right PIP 35 tender, 2 swollen. Left PIP 25 tender, 5 swollen. Knees without appreciable effusion. Ankles without tenderness or swelling. Bilateral MTP compression test positive. Clinical Disease Activity Index Tender Jt Ct (TJC): [address] (SJC): 3 Visual Analogue Scale - Pt Global Assessment: 6 Visual Analogue Scale - Concrete Batching Plant Operator Global Assessment: 3 CDAI TOTAL SCORE: 28 CDAI Interpretation: >22.0-76 High Dis Activity Assessment and Plan: #1 Seropositive rheumatoid arthritis with severe disease activity by CDAI Ms. Lozano is experiencing a flare of her joint symptoms. This is associated with being off methotrexate and adalimumab in the setting of recent infection. She did have elevated liver enzymes during her recent emergency room visit which may have been related to the acute illness. We will plan to update her laboratory monitoring today; if the liver enzymes have normalized then we will plan to restart methotrexate. We will plan to have her continue with adalimumab. Currently the breakthrough disease symptoms appear to be correlated with having the medications be stopped. Over time she continues to have persistent disease activity then we may need to make further modification. #2 Borderline-enlarged ascending aorta, [address] for annual [address] imaging to monitor for any change. Recommendations: 1. Continue with adalimumab. 2. If liver enzymes are normal today then plan to restart methotrexate. 3. Return in 3 months. in this encounter Plan of Treatment Not on fileas of this encounter Results * COMPREHENSIVE METABOLIC PANEL (10/23/2016 10:44 AM) [...] Performing Laboratory [facility] [address] [place] [address] * C REACTIVE PROTEIN (CRP) (10/23/2016 10:44 AM) Component Value Ref Range C-Reactive Protein 0.23 <1.0 MG/DL Specimen Performing Laboratory [facility] [address] [place] [address] * CBC AND DIFF (10/23/2016 10:44 AM) [...] - 0.20 K/UL Specimen Performing Laboratory [facility] [address] [place] [address] in this encounter Visit Diagnoses Diagnosis Rheumatoid arthritis involving multiple sites with positive rheumatoid factor (HCC) - Primary in this encounter
--- OUTSIDE RECORDS SUMMARY | 2017-01-01 19:51 | XMS REPORT | Encounter Summary ---
Author Author [facility] Organization [facility] Address Unknown Phone Unavailable Care Team Providers Care Nutrition Internship Name Role Phone PCP Unavailable Encounter Details Date Type Department Care Team Description 10/23/2016 [facility] Roro Jama MD Rheumatoid arthritis with Encounter [address] [place] [address] [address] [place] [address] organ or systems [phone] involvement ([facility]) Social History Tobacco Use Types Packs/Day Years [...] impairment: No 06/08/2016 as of this encounter Medications at Time of Discharge Medication Sig. Disp. Refills Start Date End Date Aloe Vera 5,000 mg cap Take 1 Cap by mouth daily. chlorzoxazone(+) (PARAFON Take 1 Tab by mouth twice 60 Tab 0 2016 FORTE) 500 mg tablet daily. clindamycin(+) (CLEOCIN Apply to bumps on neck, 60 mL 3 01/24/2016 T; CLINDAMAX) 1 % topical back and buttock twice lotion daily. docusate (COLACE) 100 mg Take 1 Cap by mouth twice 60 Cap 0 2016 capsule daily. folic acid (FOLVITE) 1 mg Take 2 Tabs by mouth 180 Tab 3 10/02/2016 tablet daily. methotrexate sodium Take 10 Tabs by mouth 120 Tab 1 10/02/2016 (RHEUMATREX) 2.5 mg every 7 days. tablet MULTIVITAMIN WITH Take 1 Tab by mouth MINERALS (MULTIVITAMIN & daily. MINERAL FORMULA PO) ondansetron (ZOFRAN) 4 mg Take 1 Tab by mouth every 60 Tab 1 2016 tablet 8 hours as needed for Nausea or Vomiting. other medication Take 1 Dose by mouth daily. Aqua Tg Silver sertraline (ZOLOFT) 50 mg Take 1 Tab by mouth 60 Tab 0 06/13/2016 tablet daily. adalimumab(+) (HUMIRA Inject 40 mg under the 6 Each 1 10/09/201601/2017 PEN) 40 mg/0.8 mL skin every 14 days. injection penIndications: Indications: RHEUMATOID RHEUMATOID ARTHRITIS ARTHRITIS oxyCODONE/acetaminophen Take 1-2 Tabs by mouth 120 Tab 0 10/02/2016 11/21/2016 (PERCOCET; ENDOCET; every 6 hours as needed ROXICET) 5/325 mg tablet for Pain traMADol (ULTRAM) 50 mg Take 1 tab every 4-6 60 Tab 0 10/02/2016 tablet hours as needed for pain. as of this encounter Plan of Treatment [...] Performing Laboratory [facility] [address] [place] [address] * C REACTIVE PROTEIN (CRP) (10/23/2016 10:44 AM) Component Value Ref Range C-Reactive Protein 0.23 <1.0 MG/DL Specimen Performing Laboratory [facility] [address] [place] [address] * CBC AND DIFF (10/23/2016 10:44 AM) [...] Performing Laboratory [facility] [address] [place] [address] in this encounter Visit Diagnoses Diagnosis Rheumatoid arthritis involving multiple sites with positive rheumatoid factor (HCC) in this encounter Admitting Diagnoses Diagnosis Rheumatoid arthritis with rheumatoid factor of multiple sites without organ or systems involvement (HCC) Rheumatoid arthritis with rheumatoid factor of multiple sites without organ or systems involvement in this encounter
--- OUTSIDE RECORDS SUMMARY | 2017-01-01 19:51 | XMS REPORT | Encounter Summary ---
Author Author [facility] Address Unknown Phone Unavailable Care Team Providers Care Ship Engineer Name Role Phone PCP Unavailable Reason for Visit * Reason Comments Prior Authorization [facility] Lab Request Hair follicle testing Encounter Details Date Type Department Care Team Description 11/03/2016 Telephone [facility] Roro Jama MD Prior Authorization Physicians - Internal [address] (Humira ); Lab Request Medicine [place] [address] (Hair follicle testing ) [address] [place] [address] OFFICE BLDG [phone] [address] [place] [address] Social History Tobacco Use Types [...]
--- OUTSIDE RECORDS SUMMARY | 2017-01-01 19:52 | XMS REPORT ---
Author Author MARLEY BLANDON [facility] Address [address] [place] [address] Care Team Providers Care Protection Mgr Name Role Phone MARLEY BLANDON Unavailable PROBLEMS Type Condition ICD9-CM Code [id number] Code Onset Dates Condition Status SNOMED Code Problem Reactive depression F32.9 Active 83850958 Problem Rheumatoid arthritis M06.9 Active 75032571 ALLERGIES Substance Reaction Event Type Date Status N.K.D.A. Unknown Non Drug Allergy Apr, Unknown SOCIAL HISTORY No smoking Hx information available PLAN OF CARE Activity Details Follow Up prn Reason: VITAL SIGNS Height 67 in 2016 Weight 153 lbs 2016 Temperature 98.4 degrees Fahrenheit 2016 Heart Rate 76 bpm 2016 Respiratory Rate 16 2016 BMI 23.96 kg/m2 2016 Blood pressure systolic 110 mmHg 2016 Blood pressure diastolic 80 mmHg 2016 MEDICATIONS Medication Instructions Dosage Frequency Start Date End Date Duration Status Methotrexate Sodium 2.5 MG Orally wk 10 Jun, Active Zofran ODT 4 MG Orally every 8 hrs 1 tablet on the tongue and allow to dissolve 8h Sep, Active Percocet 5-325 MG Orally every 6 hrs 1 tablet as needed 6h Apr, Active Folic Acid 800 MCG Orally Once a day 1 tablet 24h Active Ultram 50 mg Orally 4 times a day 1 tablet as needed 6h Sep, Active Parafon Forte DSC 500 MG Orally 2 times a day 1 tablet by Oral route 2 times per day 12h 24 May, 2014 Active PredniSONE 10 mg Orally Once a day 3 tablets with food or milk 24h Jun, Active Humira 40 MG/0.8ML Subcutaneous every other week 0.8 ml Active Zoloft 50 mg Orally Once a day, pc 1 tablet Apr, 30 day(s) Active RESULTS No Results PROCEDURES Procedure Date Ordered Related Diagnosis Body Site Office Visit, Est Pt., Level 2 2016 IMMUNIZATIONS No Known Immunizations
--- OUTSIDE RECORDS SUMMARY | 2017-01-01 19:52 | XMS REPORT | Encounter Summary ---
Author Author [facility] Organization [facility] Address Unknown Phone Unavailable Care Team Providers Care Orthotist Or Prosthetist Name Role Phone PCP Unavailable Reason for Visit * Reason Comments Follow-up Phone Call Medication Refill Encounter Details Date Type Department Care Team Description 10/02/2016 Telephone [facility] Roro Jama MD Follow-up Phone Call; Physicians - Internal [address] Medication Refill Medicine [address] [place] [address] OFFICE BLDG [phone] [address] [address] Social History Tobacco Use Types [...]
--- OUTSIDE RECORDS SUMMARY | 2017-01-01 19:52 | XMS REPORT ---
Author Author MARLEY BLANDON [facility] Address [address] [place] [address] Care Team Providers Care Shop Fitter Name Role Phone MARLEY BLANDON Unavailable PROBLEMS Type Condition ICD9-CM Code [id number] Code Onset Dates Condition Status SNOMED Code Problem Reactive depression F32.9 Active 49138230 Problem Rheumatoid arthritis M06.9 Active 14550706 ALLERGIES Unknown Allergies SOCIAL HISTORY No smoking Hx information available PLAN OF CARE VITAL SIGNS MEDICATIONS Medication Instructions Dosage Frequency Start Date End Date Duration Status Percocet 5-325 MG Orally every 6 hrs 1 tablet as needed 6h Mar, Active RESULTS No Results PROCEDURES No Known procedures IMMUNIZATIONS No Known Immunizations
--- OUTSIDE RECORDS SUMMARY | 2017-01-01 19:52 | XMS REPORT ---
Author Author MARLEY BLANDON [facility] Address [address] [place] [address] Care Team Providers Care Customer Service And Sales Consultant Name Role Phone MARLEY BLANDON Unavailable PROBLEMS Type Condition ICD9-CM Code [id number] Code Onset Dates Condition Status SNOMED Code Problem Reactive depression F32.9 Active 80269807 Problem Rheumatoid arthritis M06.9 Active 00468977 ALLERGIES Unknown Allergies SOCIAL HISTORY No smoking Hx information available PLAN OF CARE VITAL SIGNS MEDICATIONS Medication Instructions Dosage Frequency Start Date End Date Duration Status Zithromax Z-Bossman 250 MG Orally Once a day 2 tablets on the first day, then 1 tablet daily for 4 days 24h Apr, Apr, 5 day(s) Active RESULTS No Results PROCEDURES No Known procedures IMMUNIZATIONS No Known Immunizations
--- OUTSIDE RECORDS SUMMARY | 2017-01-01 19:53 | XMS REPORT ---
Author Author MARLEY BLANDON [facility] Address [address] [place] [address] Care Team Providers Care Manager Council Name Role Phone MARLYE BLANDON Unavailable PROBLEMS Type Condition ICD9-CM Code [id number] Code Onset Dates Condition Status SNOMED Code Problem Reactive depression F32.9 Active 28733226 Problem Rheumatoid arthritis M06.9 Active 49435289 ALLERGIES Unknown Allergies SOCIAL HISTORY No smoking Hx information available PLAN OF CARE VITAL SIGNS MEDICATIONS Medication Instructions Dosage Frequency Start Date End Date Duration Status Percocet 5-325 MG Orally every 6 hrs 1 tablet as needed 6h Apr, Active Ultram 50 mg Orally 4 times a day 1 tablet as needed 6h Sep, Active RESULTS No Results PROCEDURES No Known procedures IMMUNIZATIONS No Known Immunizations
--- OUTSIDE RECORDS SUMMARY | 2017-01-01 19:53 | XMS REPORT ---
Author Author MARLEY BLANDON [facility] Address [address] [place] [address] Care Team Providers Care Transportation Clerk Name Role Phone MARLEY BLANDON Unavailable PROBLEMS Type Condition ICD9-CM Code [id number] Code Onset Dates Condition Status SNOMED Code Problem Reactive depression F32.9 Active 28336549 Problem Rheumatoid arthritis M06.9 Active 10801335 ALLERGIES Unknown Allergies SOCIAL HISTORY No smoking Hx information available PLAN OF CARE VITAL SIGNS MEDICATIONS Unknown Medications RESULTS No Results PROCEDURES No Known procedures IMMUNIZATIONS No Known Immunizations
--- OUTSIDE RECORDS SUMMARY | 2017-01-01 19:53 | XMS REPORT ---
Author Author MARLEY BLANDON [facility] Address [address] [place] [address] Care Team Providers Care Psychiatric Orderly Name Role Phone MARLEY BLANDON Unavailable PROBLEMS Type Condition ICD9-CM Code [id number] Code Onset Dates Condition Status SNOMED Code Problem Reactive depression F32.9 Active 08316409 Problem Rheumatoid arthritis M06.9 Active 19135053 ALLERGIES Unknown Allergies SOCIAL HISTORY No smoking Hx information available PLAN OF CARE VITAL SIGNS MEDICATIONS Medication Instructions Dosage Frequency Start Date End Date Duration Status Parafon Forte DSC 500 MG Orally 2 times a day 1 tablet by Oral route 2 times per day 12h 24 May, 2014 Active RESULTS No Results PROCEDURES No Known procedures IMMUNIZATIONS No Known Immunizations
[2017-01-01] MEDS ORDERED: AMOX-358 PO (20:14)
--- NOTE | 2017-01-01 20:14 | ED Upper Extremity ---
General Stated Complaint: RT ELBOW BRUISING/SWELLING Source: patient Exam Limitations: no limitations History of Present Illness Time seen by provider: 20:10 Initial Comments To ER with dorsal right elbow swelling and bruising and pain. This began last night after she "barely bumped it" on the coffee table. She had a an elbow replacement by Dr. Martinez at the [facility] in May of this year. She is on methotrexate and Humira for rheumatoid arthritis also followed by the [facility]. Local physician is Dr. Fisher. Onset: just prior to arrival Severity: moderate Pain/Injury Location: right elbow Method of Injury: direct blow Modifying Factors: Worse With Movement Allergies and Home Medications Allergies Coded Allergies: No Known Drug Allergies (Unverified , 10/08/16) Home Medications Adalimumab 40 Mg/0.8 Ml Pen.ij.kit, (Reported) Amoxicillin/Potassium Clav 1 Each Tablet, 1 EACH PO BID, #14 Prescribed by: EMMY RÍOS on 01/01/17 2014 Azithromycin 250 Mg Tablet, 250 MG PO UD, #6 Ref 0 TAKE 2 TABLETS ON DAY ONE THEN TAKE 1 TABLET DAILY FOR FOUR MORE DAYS Prescribed by: LATOYA CHEUNG on 10/08/16 1716 Baclofen 10 Mg Tablet, (Reported) Citalopram Hydrobromide 40 Mg Tablet, (Reported) Hydroxyzine HCl 25 Mg Tablet, (Reported) Methotrexate Sodium 2.5 Mg Tablet, (Reported) Ondansetron HCl 4 Mg Tablet, (Reported) Tramadol HCl 50 Mg Tablet, (Reported) Constitutional: see HPI EENTM: see HPI Respiratory: no symptoms reported Cardiovascular: no symptoms reported Genitourinary: no symptoms reported Musculoskeletal: see HPI Skin: no symptoms reported Past Ijivkpv-Vltrta-Yxvmaf Hx Patient Social History Recent Foreign Travel: No Contact w/Someone Who Travel: No Surgeries History of Surgeries: Yes (right elbow replacement) Respiratory History of Respiratory Disorde: No Cardiovascular History of Cardiac Disorders: No Neurological History of Neurological Disord: No Genitourinary History of Genitourinary Disor: No Gastrointestinal History of Gastrointestinal Di: No Musculoskeletal History of Musculoskeletal Dis: Yes Musculoskeletal Disorders: Rheumatoid Arthritis Endocrine History of Endocrine Disorders: No HEENT History of HEENT Disorders: No Cancer History of Cancer: No Psychosocial History of Psychiatric Problem: No Blood Transfusions History of Blood Disorders: No Physical Exam Vital Signs Vital Sign - Last 12Hours 01/01/17 19:48 Temp 98.2 Pulse 91 Resp 20 B/P (MAP) 119/82 Pulse Ox 95 O2 Delivery Room Air Capillary Refill : General Appearance: WD/WN, no apparent distress HEENT: PERRL/EOMI, normal ENT inspection Neck: non-tender, full range of motion Respiratory: no respiratory distress, no accessory muscle use Gastrointestinal: normal bowel sounds, non tender, soft Shoulder: normal inspection, non-tender Elbow/Forearm: Right, ecchymosis (she maintains full flexion and extension abilities of the elbow. However, there is a an impressive amount of ecchymosis with a bit of erythema as well. This looks more ecchymotic than erythematous but there is a little bit of redness and she is immunosuppressed so I'll put her on antibiotic. I don't see any abrasions or lacerations or open wounds and certainly there is no drainage.) Neurologic/Psychiatric: alert, normal mood/affect, oriented x 3 Skin: normal color, warm/dry Progress/Results/Core Measures Results/Orders My Orders Orders - EMMY RÍOS APRN Elbow, Right, 3 Views (01/01/17 20:08) Amoxicillin/Clavulanate Tablet (Augmenti (01/01/17 20:15) Vital Signs/I&O Vital Sign - Last 12Hours 01/01/17 19:48 Temp 98.2 Pulse 91 Resp 20 B/P (MAP) 119/82 Pulse Ox 95 O2 Delivery Room Air Progress Note : Progress Note Patient states she has an appointment this Sunday the with her shank piece tacker at and she may be able to get in with her orthopedist Dr. Martinez as well on that same day. Diagnostic Imaging Diagonstic Imaging: Xray Comments NAME: KHOI KIRK [facility] REC#: [id number] PT STATUS: REG ER : 1965 PHYSICIAN: EMMY RÍOS APRN ADMIT DATE: 01/01/17/ER Draft Date of Exam:01/01/17 ELBOW, RIGHT, 3 VIEWS EXAM: Right elbow series. COMPARISON is made with a prior examination from June 30, 2014. FINDINGS: The patient is status post a right elbow arthroplasty. There is no acute fracture evident but there does appear to be the suggestion of a small degree of lucency along the proximal aspect of the ulnar component which may indicate some loosening. There has been prior resection of the radial head. Numerous scattered periarticular calcifications are present. There is no soft tissue gas or foreign body. There does appear to be some regional soft tissue swelling. IMPRESSION: 1. Previous right elbow arthroplasty. Alignment is unremarkable. There is no acute fracture. There is however, the suggestion of some lucency about the proximal aspect of the ulnar component which may reflect loosening. There is no soft tissue gas but there is regional soft tissue swelling. In the appropriate setting, an infectious process could not be excluded. Dictated on workstation # [id number] Dict: 01/01/172036 Trans: 01/01/172042 [facility] [id number] Interpreted by: JAZZMINE KEEN MD Electronically signed by: Stefan Impression Impression: Primary Impression: Traumatic hematoma of elbow Disposition: HOME, SELF-CARE Condition: Stable Departure-Patient Inst. Decision time for Depature: 20:13 Referrals: NO,LOCAL PHYSICIAN (PCP/Family) Primary Care Physician Patient Instructions: HEMATOMA Add. Discharge Instructions: 1. Return to ER for any concerns 2. Follow-up with your doctor later this week for recheck. Return to ER for any increased redness, fevers. Keep the Michael wrap on this for the next 2-3 days. Scripts Amoxicillin/Potassium Clav (Augmentin 875-125 Tablet) 1 Each Tablet 1 EACH PO BID, #14 TAB Prov: EMMY RÍOS APRN 01/01/17 Copy Copies To 1: MILLICENT FISHER MD, PETER J APRN Jan 01, 2017 20:14
[2017-01-01] MEDS ORDERED: AUGMENTIN 875 MG TAB (AMOXICILLIN/CLAVULANATE) PO SCH (20:15)
[2017-01-01] MEDS ORDERED: CITA40TA11 (20:40)
[2017-01-01] MEDS ORDERED: TRAM50TA2 (20:40)
[2017-01-01] MEDS ORDERED: ONDA4TAB10 (20:40)
[2017-01-01] MEDS ORDERED: HYDR-700 (20:40)
[2017-01-01] MEDS ORDERED: METH2.5T (20:40)
[2017-01-01] MEDS ORDERED: ADAL40PE (20:40)
[2017-01-01] MEDS ORDERED: BACL10TA (20:40)
--- NOTE | 2017-01-01 20:43 | Diagnostic Imaging Report ---
EXAM: Right elbow series. COMPARISON is made with a prior examination from June 30, 2014. FINDINGS: The patient is status post a right elbow arthroplasty. There is no acute fracture evident but there does appear to be the suggestion of a small degree of lucency along the proximal aspect of the ulnar component which may indicate some loosening. There has been prior resection of the radial head. Numerous scattered periarticular calcifications are present. There is no soft tissue gas or foreign body. There does appear to be some regional soft tissue swelling. IMPRESSION: 1. Previous right elbow arthroplasty. Alignment is unremarkable. There is no acute fracture. There is however, the suggestion of some lucency about the proximal aspect of the ulnar component which may reflect loosening. There is no soft tissue gas but there is regional soft tissue swelling. In the appropriate setting, an infectious process could not be excluded. Dictated by: Dictated on workstation # [id number]
[2017-01-01] MEDS ORDERED: OXYC-202 PO ×2 (20:51→20:52)
[2017-01-01 20:52] VITALS: BP 119/82
== END 2017-01-01 20:52 | disposition home or self-care (01) ==
LOC: EDUNIT# 19:43 → ER 19:45
DX: S50.01XA Contusion of right elbow, initial encounter (principal); M06.9 Rheumatoid arthritis, unspecified; Z96.621 Presence of right artificial elbow joint; W22.03XA Walked into furniture, initial encounter
CPT/HCPCS: 73080; 99283

== ENCOUNTER 2017-01-21 19:44 | Emergency (ER) | payer MEDICARE, MEDICAID ==
[~2017-01-21] VITALS: Ht 170.2 cm; Wt 66.7 kg
[~2017-01-21 19:44] MED LIST changes: +ADAL40PE; +AMOX-358 PO; +BACL10TA; +CITA40TA11; +HYDR-700; +METH2.5T; +ONDA4TAB10; +OXYC-202 PO; +TRAM50TA2
--- OUTSIDE RECORDS SUMMARY | 2017-01-21 19:51 | XMS REPORT | Continuity of Care Document ---
Author Author [facility] Organization [facility] Address Unknown Phone Unavailable Care Team Providers Care Client Resolution Specialist Name Role Phone [employer] Unavailable Unavailable Problems Medications Allergies, Adverse Reactions, Alerts Immunizations Results Vital Signs Encounters Location Location Details Encounter Type Encounter Number Reason For Visit Attending Provider ADM Date DC Date Status Source OUTPATIENT [id number] KANDY MILLER 10/23/2016 10/23/2016 Active [facility] OUTPATIENT [id number] HAYDEN HOROWITZ 01/08/2017 01/08/2017 Active [facility] O KANDY MILLER Active [facility] Procedures Plan of Care Social History Assessment and Plan Family History Value Date Source Advance Directives Order Name Results Value Date Source
--- OUTSIDE RECORDS SUMMARY | 2017-01-21 19:52 | XMS REPORT | Clinical Summary ---
Author Author [facility] Organization [facility] Address Unknown Phone Unavailable Care Team Providers Care Civil Draftsman Name Role Phone PCP Unavailable Source Comments Some departments are not documenting in the electronic medical record. If you do not see the information that you expected, contact Release of Information in the Health Information Management department at [phone] for further assistance in locating additional records.[facility] Allergies Active Allergy Reactions Severity Noted Date [...] Tab 3 10/03/19 Active tablet daily. 17 oxyCODONE/acetaminophen Take 1 tablet by mouth 60 tablet 0 12/26/19 Active (PERCOCET) 10/325 mg every 8 hours as needed 17 tablet for Pain etanercept(+) (ENBREL Inject 50 mg under the 12 Syringe 1 01/06/20 Active SURECLICK) 50 mg/mL (0.98 skin every 7 days. 17 mL) injection pen traMADol (ULTRAM) 50 mg TAKE ONE TO TWO TABLETS 120 tablet 0 01/19/20 Active tablet BY MOUTH EVERY 6 HOURS 17 NEEDED FOR PAIN adalimumab(+) (HUMIRA Inject 40 mg under the 6 Each 1 11/07/1901/05 Discontin PEN) 40 mg/0.8 mL skin every 14 days. 17 17 ued injection penIndications: Indications: RHEUMATOID RHEUMATOID ARTHRITIS ARTHRITIS traMADol (ULTRAM) 50 mg Take 1-2 tab every 6 120 Tab 2 11/24/19 Discontin tablet hours as needed for pain. 17 17 ued oxyCODONE/acetaminophen Take 1 Tab by mouth every [...] See above Rheumatoid arthritis involving multiple sites ([facility]) 12/17/2015 S/P cholecystectomy 12/17/2015 Fever 12/17/2015 Cervical cancer ([facility]) 12/17/2015 Overview: Early 20s Urinary incontinence 12/17/2015 Overview: Large leak on exam with valsalva 5 pads /day Last Assessment & Plan: Timed and double void Avoid constipation - daily miralax Decrease soda MRI of back~ Lumbar and Sacral MRI URD with and without pessary Bactrim 2 doses Erx and reviewed dosing FU 4 months Encounters Date Type Specialty Care Team Description 01/18/2017 Refill Rheumatology Roro Jama MD 01/18/2017 Refill Rheumatology Roro Jama MD 01/08/2017 [facility] Radiology Иван Martinez MD Encounter 01/08/2017 Office Visit Orthopedic Surgery Иван Martinez MD Elbow arthritis (Primary Dx) 01/08/2017 Telephone Allergy,Immunology and Roro Jama MD Prior Authorization Rheumatology (Enbrel sureclick 50 mg/mL inj) 01/05/2017 Office Visit Rheumatology Roro Jama MD Rheumatoid arthritis involving multiple sites, unspecified rheumatoid factor presence (Primary Dx);Pleurisy 01/05/2017 Orders Only Orthopedic Surgery Иван Martinez MD Surgical follow-up care (Primary Dx) 12/22/2016 Telephone Allergy,Immunology and Roro Jama MD [...] and Roro Jama MD Results Rheumatology 10/23/2016 [facility] Roro Jama MD Rheumatoid arthritis with Encounter rheumatoid factor of multiple sites without organ or systems involvement (HCC) 10/23/2016 Office Visit Allergy,Immunology and Roro Jama MD Rheumatoid arthritis Rheumatology involving multiple sites with positive rheumatoid factor (HCC) (Primary Dx) 10/23/2016 Telephone Allergy,Immunology and Roro Jama MD Follow- up Phone Call Rheumatology from Last 3 Months Immunizations Name Dates [...] Vital Sign Reading Time Taken Blood Pressure 111/73 01/08/2017 8:38 AM CDT Pulse 68 01/08/2017 8:38 AM CDT Temperature 36.5 C (97.7 F) 01/05/2017 10:34 AM CDT Respiratory Rate 17 01/05/2017 10:34 AM CDT Oxygen Saturation 100% 01/05/2017 10:34 AM CDT Inhaled Oxygen - - Concentration Weight 68.5 kg (151 lb) 01/08/2017 8:38 AM CDT Height 171.4 cm (5' 7.48") 01/08/2017 8:38 AM CDT Body Mass Index 23.31 01/08/2017 8:38 AM CDT Plan of Treatment Health Maintenance Due Date Last Done Comments PHYSICAL (COMPREHENSIVE) 1971 EXAM PERTUSSIS VACCINE 1975 TETANUS VACCINE 1981 CERVICAL CANCER SCREENING 1994 BREAST CANCER SCREENING 2004 COLORECTAL CANCER 2014 SCREENING INFLUENZA VACCINE 01/28/2017 HEPATITIS C SCREENING Completed 12/22/2015 Implants Implanted Type Area Brewery Pumper Device Expiration Model / Identifier Date Serial / Lot Cement Bone Palacos Lv+G Gentamicin Right: CHRISTEN:CHRISTEN 01/27/2018 [id number] 40gm Green Elbow US 1 / Implanted: Qty: 2 on 06/07/2016 by [id number] Иван Martinez MD 1 / [id number] Humeral Screw Kit Right: CHRISTEN:CHRISTEN 11/27/2025 [id number] Implanted: Qty: 1 on 06/07/2016 by Elbow US 0 / Иван Martinez MD [id number] Christen Nexel Total Elbow Ulnar Right: 04/29/2025 [id number] Component Elbow 7 / Implanted: Qty: 1 on 06/07/2016 by [id number] Иван Martinez MD 7 [id number] Stem Humeral 100mm 4mm Elbow Right: CHRISTEN: ORTHO 08/27/2025 [id number] Implanted: Qty: 1 on 06/07/2016 by Mikey 0 / Иван Martinez MD [id number] 0 / [id number] Kit Articulation Nexel 4 Right: UNIDENTIFIED 10/28/2019 Implanted: Qty: 1 on 06/07/2016 by Mikey MUNIZ / Иван Martinez MD 4- / [id number] Results * ELBOW 2 VIEWS RIGHT (01/08/2017 8:39 AM) Specimen Performing Laboratory Right [facility] RESULTS Impressions Findings/impression: 1. The elbow arthroplasty remains in place. Alignment appears unchanged. There is no evidence of abnormal lucency associated orthopedic hardware. 2. A fracture is not identified. 3. Note is again made of prior resection of the radial head. 4. Several soft tissue calcifications adjacent to the elbow are again noted and are unchanged. Finalized by Edi Wong M.D. on 01/08/2017 10:03 AM. Dictated by Edi Wong M.D. on 01/08/2017 9:37 AM. Narrative Right elbow Clinic data: Right elbow arthroplasty Two projections were acquired. Comparison is made to patient's prior study of . Procedure Note Interface, Radiant Results - 01/08/2017 10:07 AM CDT Right elbow Clinic data: Right elbow arthroplasty Two projections were acquired. Comparison is made to patient's prior study of . IMPRESSION Findings/impression: 1. The elbow arthroplasty remains in place. Alignment appears unchanged. There is no evidence of abnormal lucency associated orthopedic hardware. 2. A fracture is not identified. 3. Note is again made of prior resection of the radial head. 4. Several soft tissue calcifications adjacent to the elbow are again noted and are unchanged. Finalized by Edi Wong M.D. on 01/08/2017 10:03 AM. Dictated by Edi Wong M.D. on 01/08/2017 9:37 AM. * CBC AND DIFF (10/23/2016 10:44 AM) [...] Performing Laboratory Blood [facility] [address] [place] [address] * C REACTIVE PROTEIN (CRP) (10/23/2016 10:44 AM) Component Value Ref Range C-Reactive Protein 0.23 <1.0 MG/DL Specimen Performing Laboratory [facility] [address] [place] [address] * COMPREHENSIVE METABOLIC PANEL (10/23/2016 10:44 AM) [...] Performing Laboratory Blood [facility] [address] [place] [address] from Last 3 Months
--- OUTSIDE RECORDS SUMMARY | 2017-01-21 19:52 | XMS REPORT | Encounter Summary ---
Author Author [facility] Organization [facility] Address Unknown Phone Unavailable Care Team Providers Care Hotel Maintenance Engineer Name Role Phone PCP Unavailable Reason for Visit * Reason Comments Medication Refill Encounter Details Date Type Department Care Team Description 01/18/2017 Refill [facility] Roro Jama MD Physicians - Internal [address] [facility] [place] [address] [facility] [address] [place] [address] [place] [phone] [address] [phone] Social History Tobacco Use Types Packs/Day Years [...]
--- OUTSIDE RECORDS SUMMARY | 2017-01-21 19:52 | XMS REPORT | Encounter Summary ---
Author Author [facility] Organization [facility] Address Unknown Phone Unavailable Care Team Providers Care Case Consultant Name Role Phone PCP Unavailable Encounter Details Date Type Department Care Team Description 01/05/2017 Orders Only [facility] Иван Martinez MD Surgical follow-up care Physicians - Orthopedics [address] [facility] (Primary Dx) 1ST AND 2ND FLOOR [place] [address] [place] [address] ORTHOPEDICS [facility] [phone] [place] [address] Social History Tobacco Use Types Packs/Day Years [...] on fileas of this encounter Results * ELBOW 2 VIEWS RIGHT (01/08/2017 [...] Edi Wong M.D. on 01/08/2017 9:37 AM. in this encounter Visit Diagnoses Diagnosis Surgical follow-up care - Primary Follow-up examination, following unspecified surgery in this encounter
--- OUTSIDE RECORDS SUMMARY | 2017-01-21 19:52 | XMS REPORT | Encounter Summary ---
Author Author [facility] Organization [facility] Address Unknown Phone Unavailable Care Team Providers Care Gripper Attacher Name Role Phone PCP Unavailable Reason for Visit * Reason Comments Prior Authorization [facility] Lab Request Hair follicle testing Encounter Details Date Type Department Care Team Description 11/03/2016 Telephone [facility] Roro Jama MD Prior Authorization Physicians - Internal [address] ([facility] ); Lab Request Medicine [place] [address] (Hair follicle testing ) [address] [place] [address] OFFICE BLDG [phone] [address] [place] [address] Social History Tobacco Use Types [...]
--- OUTSIDE RECORDS SUMMARY | 2017-01-21 19:52 | XMS REPORT | Encounter Summary ---
Author Author [facility] Organization [facility] Address Unknown Phone Unavailable Care Team Providers Care Manipulative Therapy Specialist Name Role Phone PCP Unavailable Reason for Visit * Reason Comments Medication Follow-up Encounter Details Date Type Department Care Team Description 11/27/2016 Telephone [facility] Roro Jama MD Medication Follow-up Physicians - Internal [address] [facility] Medicine [place] [address] [facility] [place] [address] OFFICE BLDG [phone] [address] [place] [address] Social History Tobacco Use Types [...]
--- OUTSIDE RECORDS SUMMARY | 2017-01-21 19:52 | XMS REPORT | Encounter Summary ---
Author Author [facility] Organization [facility] Address Unknown Phone Unavailable Care Team Providers Care Doctor Of Podiatric Medicine Name Role Phone PCP Unavailable Reason for Visit * Reason Comments Elbow Pain FuV Encounter Details Date Type Department Care Team Description 01/08/2017 Office Visit [facility] Иван Martinez MD Elbow arthritis (Primary Physicians - Orthopedics [address] Dx) 1ST AND 2ND FLOOR [place] [address] [employer] [address] ORTHOPEDICS BLDG [phone] [place] [address] Social History Tobacco Use Types [...] Pulse 68 01/08/2017 8:38 AM CDT Temperature - - Respiratory Rate - - Oxygen Saturation - - Inhaled Oxygen - - Concentration Weight 68.5 kg (151 lb) 01/08/2017 8:38 AM CDT Height 171.4 cm (5' 7.48") 01/08/2017 8:38 AM CDT Body Mass Index 23.31 01/08/2017 8:38 AM CDT in this encounter Functional Status [...] impairment: No 06/08/2016 as of this encounter Progress Notes * Иван Martinez MD - 01/08/2017 8:00 AM CDT Formatting of this note may be different from the original. Date of Service: 01/08/2017 Subjective: History of Present Illness Ms. Lozano returns now seven months postop. A week ago she banged her elbow on an end table and noted some bruising. She was concerned by this and was evaluated in an emergency department elsewhere. She returns in follow up. Prior to this incident she reports doing very well with the elbow. The bruising seems to be improving. She notes no paresthesias currently. Review of Systems HENT: Negative. Musculoskeletal: Negative. Pain scale 7 Neurological: Negative. Objective: Aloe Vera 5,000 mg cap Take 1 [...] Take 1 Cap by mouth twice daily. etanercept(+) (ENBREL SURECLICK) 50 mg/mL (0.98 mL) injection pen Inject 50 mg under the skin every 7 days. folic acid (FOLVITE) 1 mg tablet Take [...] by mouth daily. Aqua Tg Silver oxyCODONE/acetaminophen (PERCOCET) 10/325 mg tablet Take 1 tablet by mouth every 8 hours as needed for Pain sertraline (ZOLOFT) 50 mg tablet Take 1 Tab by mouth daily. traMADol (ULTRAM) 50 mg tablet Take 1-2 tab every 6 hours as needed for pain. Vitals: 01/08/17 0838 BP: 111/73 Pulse: 68 Weight: 68.5 kg (151 lb) Height: 171.4 cm (67.48") Body mass index is 23.31 kg/(m^2). Physical Exam Ortho Exam On evaluation of the patients right elbow, an arc of flexion from 10 to 135 degrees. Forearm rotator is symmetric to the contralateral side. She has good strength with resisted elbow flexion and extension. There is some subtle crepitation with passive range of motion. She is not able to detect this. She has no pain with this maneuver. IMAGING: X-rays were reviewed. No obvious change in positioning of the implants or evidence of new loosening. Assessment and Plan: #1 Status post right total elbow arthroplasty I reviewed with Ms. Lozano that I do not see any obvious new problems with the implant. I have again encouraged her to be cautious with the arm as she is relatively young. She verbalized understanding. She will follow up at one year postop. All of her questions were answered. Dictated by Иван Martinez MD and transcribed via [employer] Perfect Binder Setter. Copied and pasted into O2 by Maria G Epps, 01/15/2017 10:26 AM in this encounter Plan of Treatment Not on fileas of this encounter Visit Diagnoses Diagnosis Elbow arthritis - Primary Unspecified arthropathy, upper arm in this encounter
--- OUTSIDE RECORDS SUMMARY | 2017-01-21 19:52 | XMS REPORT | Encounter Summary ---
Author Author [facility] Organization [facility] Address Unknown Phone Unavailable Care Team Providers Care Cafe Worker Name Role Phone PCP Unavailable Reason for Visit * Reason Comments Medication Refill Encounter Details Date Type Department Care Team Description 01/18/2017 Refill [facility] Roro Jama MD Physicians - Internal [address] [facility] [place] [address] [facility] [address] [place] [address] [place] [phone] [address] [phone] Social History Tobacco Use Types Packs/Day Years [...]
--- OUTSIDE RECORDS SUMMARY | 2017-01-21 19:52 | XMS REPORT | Encounter Summary ---
Author Author [facility] Organization [facility] Address Unknown Phone Unavailable Care Team Providers Care Covered Buckle Assembler Name Role Phone PCP Unavailable Reason for Visit * Reason Comments Medication Refill Encounter Details Date Type Department Care Team Description 11/20/2016 Refill [facility] Roro Jama MD Physicians - Internal [address] [facility] Medicine [place] [address] [facility] [place] [address] OFFICE BLDG [phone] [address] [place] [address] Social History Tobacco Use Types [...]
--- OUTSIDE RECORDS SUMMARY | 2017-01-21 19:52 | XMS REPORT | Encounter Summary ---
Author Author [facility] Organization [facility] Address Unknown Phone Unavailable Care Team Providers Care Candy Wrapping Machine Operator Name Role Phone PCP Unavailable Reason for Visit * Reason Comments Prior Authorization [facility] Encounter Details Date Type Department Care Team Description 12/05/2016 Telephone [facility] Roro Jama MD Prior Authorization Physicians - Internal [address] [facility] ([facility]) Medicine [place] [address] [place] [address] OFFICE BLDG [phone] [address] [address] Social History Tobacco Use Types [...]
--- OUTSIDE RECORDS SUMMARY | 2017-01-21 19:52 | XMS REPORT | Encounter Summary ---
Author Author [facility] Organization [facility] Address Unknown Phone Unavailable Care Team Providers Care Traffic Signal Technician Name Role Phone PCP Unavailable Reason for Visit * Reason Comments Follow-up Phone Call Encounter Details Date Type Department Care Team Description 12/22/2016 Telephone [facility] Roro Jama MD Follow-up Phone Call Physicians - Internal [address] [facility] Medicine [place] [address] [facility] [place] [address] OFFICE BLDG [phone] [address] [place] [address] Social History Tobacco Use Types [...]
--- OUTSIDE RECORDS SUMMARY | 2017-01-21 19:52 | XMS REPORT | Encounter Summary ---
Author Author [facility] Organization [facility] Address Unknown Phone Unavailable Care Team Providers Care Fly Raiser Lockstitch Name Role Phone PCP Unavailable Reason for Visit * Reason Comments Prior Authorization Enbrel sureclick 50 mg/mL inj Encounter Details Date Type Department Care Team Description 01/08/2017 Telephone [facility] Roro Jama MD Prior Authorization Physicians - Internal [address] (Enbrel sureclick 50 Medicine [place] 1044 mg/mL inj) 4TH [place] [address] MED [phone] [place] [address] Social History Tobacco Use Types [...]
--- OUTSIDE RECORDS SUMMARY | 2017-01-21 19:52 | XMS REPORT | Encounter Summary ---
Author Author [facility] Organization [facility] Address Unknown Phone Unavailable Care Team Providers Care Cartridge Assembler Name Role Phone PCP Unavailable Reason for Visit * Reason Comments Rheumatoid Arthritis Encounter Details Date Type Department Care Team Description 01/05/2017 Office Visit [facility] Roro Jama MD Rheumatoid arthritis Physicians - Internal [address] involving multiple sites, Medicine [place] 1044 unspecified rheumatoid [address] [place] [address] factor presence (Primary [place], [place] [phone] Dx);Pleurisy [address] [phone] Social History Tobacco Use Types Packs/Day Years Used Date Current Every Day Smoker Cigarettes 0.25 30 Smokeless Tobacco: Never Used Comments: in process of quitting Alcohol Use Drinks/Week oz/Week Comments No 0 Standard 0.0 drinks or equivalent Sex Assigned at Date Recorded Not on file as of this encounter Last Filed Vital Signs Vital Sign Reading Time Taken Blood Pressure 136/81 01/05/2017 10:34 AM CDT Pulse 93 01/05/2017 10:34 AM CDT Temperature 36.5 C (97.7 F) 01/05/2017 10:34 AM CDT Respiratory Rate 17 01/05/2017 10:34 AM CDT Oxygen Saturation 100% 01/05/2017 10:34 AM CDT Inhaled Oxygen - - Concentration Weight 71.5 kg (157 lb 9.6 oz) 01/05/2017 10:34 AM CDT Height 186.4 cm (6' 1.4") 01/05/2017 10:34 AM CDT Body Mass Index 20.57 01/05/2017 10:34 AM CDT in this encounter Functional Status [...] encounter Instructions * Patient Instructions - Roro Jama MD - 01/05/2017 10:30 AM CDT 1. Consider ibuprofen if pleurisy symptoms persist, 2-4 tabs 2-3 times per day. 2. Chest x-ray on Sunday if symptoms are worsening or not improved. 3. Switch Humira to Enbrel. 4. Continue methotrexate at 10 tabs for now but if improving after change to Enbrel then will consider reducing the methotrexate to help with side effects of the ulcers. 5. Meet with dentist to help with TMJ symptoms. 6. Meet with Dr. Martinez regarding elbow. in this encounter Progress Notes * Roro Jama MD - 01/05/2017 10:30 AM CDT Formatting of this note may be different from the original. Date of Service: 01/05/2017 Subjective: Yvonne Lozano is a 51 y.o. [...] a right total elbow arthroplasty on 06/07/2016. Her last visit was in September 2016 at which time adalimumab and methotrexate were continued. She reports that overall she feels like disease activity from the standpoint of rheumatoid have been quite problematic. She does not think that the adalimumab is helping as much as it has in the past. She is having prolonged morning stiffness. Her right jaw is quite symptomatic. She describes grinding anytime she tries to eat. She has been having some discomfort in the left posterior chest. She describes this as painful particularly with a deep breath and as a result she has to take some shallow breaths. She has been noticing this over the last week. She has been on antibiotic and with this she seems to be improving. She has had a prior history of pleurisy. It has improved in the last 2 days. Earlier this week she had a small injury to her right elbow which is previously where she surgery. She has had significant pain as well as ecchymosis extending proximally into the mid upper arm and distally to the mid forearm. She was seen by her local provider and started on amoxicillin clavulanic acid due to possible concern of infection. She scheduled with Dr. Martinez in the next few days for further follow-up. Past medical history: 1. Rheumatoid arthritis. 2. Cholecystectomy for cholecystitis. 3. Distant cervical cancer diagnosed in the early 20s. 4. Moh's surgery for basal cell carcinoma 02/2016. 5. Tubal ligation. 6. Right total elbow arthroplasty 05/2016. 7. Borderline enlarged ascending aorta, 4 cm. Identified in 09/2016. Family history: Father, heart disease. No family members with any rheumatoid arthritis or other autoimmune conditions. Social history: Tobacco: Using a half pack per day. Interested in quitting over time. Ethanol: None. Immunization status: PCV13 11/2015. PPSV23 06/2016. Cardiovascular risk assessment: Blood pressure is at goal. Will need ongoing monitoring for hyperlipidemia. Review of Systems Constitutional: Negative. HENT: Positive for ear pain, hearing loss, mouth sores, postnasal drip and trouble swallowing. Eyes: Positive for photophobia, redness and itching. Respiratory: Positive for chest tightness and shortness of breath. Cardiovascular: Positive for leg swelling. Gastrointestinal: Positive for abdominal distention and abdominal pain. Endocrine: Negative. Genitourinary: Negative. Musculoskeletal: Positive for arthralgias, myalgias, neck pain and neck stiffness. Skin: Negative. Allergic/Immunologic: Negative. Neurological: Negative. Hematological: Negative. Psychiatric/Behavioral: Negative. All other systems reviewed and are negative. Objective: Aloe Vera 5,000 mg cap Take [...] 6 hours as needed for pain. Vitals: 01/05/17 1034 BP: 136/81 Pulse: 93 Resp: 17 Temp: 36.5 C (97.7 F) TempSrc: Oral SpO2: 100% Weight: 71.5 kg (157 lb 9.6 oz) Height: 186.4 cm (73.4") Body mass index is 20.57 kg/(m^2). Physical Exam General: Alert and oriented, no acute distress. Eye: Clear conjunctiva and lids. HEENT: Moist mucous membranes with no oral or nasal ulcers. Lymph: No cervical or supraclavicular lymphadenopathy. CV: Regular rate and rhythm; no murmur/gallop/rub. Vessels: Normal radial and pedal pulses. Pulm: Clear to auscultation bilaterally. Abdomen: Soft, nontender, nondistended. No hepatosplenomegaly appreciated. Skin: Significant ecchymosis extending right upper arm, elbow and down to the mid forearm. Slight warmth associated with this. No erythema. MSK: No tenderness or swelling of the sternoclavicular joints, acromioclavicular joints, or shoulders. Prior surgery noted at the right elbow. MCP compression test negative bilaterally MCPs and PIPs without tenderness or swelling. Tenderness over the greater trochanter on the left. Left knee tender. Bilateral ankles with tenderness. Assessment and Plan: #1 Seropositive erosive rheumatoid arthritis She is no longer feeling the same benefit that she once did from adalimumab. As a result we will plan to make a switch to etanercept. She is having side effects of methotrexate in terms of her hair thinning and oral ulcers. Ideally we would reduce this dose but with her persistent disease activity would be reluctant to make a reduction in methotrexate until better disease activity control with the change to etanercept. We did discuss with her other biologic other than a TNF. However she does tolerate a TNF inhibitor and initially a good response to adalimumab, will make a plan to proceed with etanercept. #2 Pleurisy This seems to be improving over the course of the last few days. We discussed obtaining a chest x-ray when she returns to in 3 days with her appointment with Dr. Martinez if the symptoms continue to persist. She does not report necessarily other symptoms to suggest pneumonia. Potentially this could be related to rheumatoid arthritis. We did discuss potentially using a short course of NSAIDs to also assist with pain management. #3 Trauma affecting right elbow in setting of total elbow arthroplasty She has follow-up scheduled with Dr. Martinez which I think will be quite important. She is on a course of antibiotics started by her local providers. #4 Right temporomandibular joint symptoms We discussed having her meet with a dentist for further evaluation. We did discuss the rheumatoid arthritis can affect this joint but her description of grinding raises the possibility of a degenerative etiology. Recommendations: 1. Consider ibuprofen if pleurisy symptoms persist, 2-4 tabs 2-3 times per day. 2. Chest x-ray on Sunday if symptoms are worsening or not improved. 3. Switch adalimumab to etanercept. 4. Continue methotrexate at 10 tabs for now but if improving after change to etanercept then will consider reducing the methotrexate to help with side effects of the ulcers. 5. Meet with dentist to help with TMJ symptoms. 6. Meet with Dr. Martinez regarding elbow. in this encounter Plan of Treatment Name Priority Associated Diagnoses Order Schedule CHEST 2 VIEWS Routine Pleurisy Expected: 01/05/2017 (Approximate), Expires: 01/05/2018 CBC AND DIFF Routine Pleurisy Expected: 01/05/2017 (Approximate), Expires: 01/05/2018 COMPREHENSIVE METABOLIC PANEL Routine Pleurisy Expected: 01/05/2017 (Approximate), Expires: 01/05/2018 C REACTIVE PROTEIN (CRP) Routine Pleurisy Expected: 01/05/2017 (Approximate), Expires: 01/05/2018 as of this encounter Visit Diagnoses Diagnosis Rheumatoid arthritis involving multiple sites, unspecified rheumatoid factor presence - Primary Pleurisy Pleurisy without mention of effusion or current tuberculosis in this encounter
--- OUTSIDE RECORDS SUMMARY | 2017-01-21 19:52 | XMS REPORT | Encounter Summary ---
Author Author [facility] Organization [facility] Address Unknown Phone Unavailable Care Team Providers Care Lasting Room Machine Operator Name Role Phone PCP Unavailable Encounter Details Date Type Department Care Team Description 01/08/2017 Hospital [facility] Иван Martinez MD Encounter Hospital Radiology [address] MED [place] [address] [place] [address] 2ND FLOOR [phone] [place] [address] [phone] Social History Tobacco Use Types Packs/Day Years [...] twice 60 Cap 0 2016 capsule daily. etanercept(+) (ENBREL Inject 50 mg under the 12 Syringe 1 01/05/2017 SURECLICK) 50 mg/mL (0.98 skin every 7 days. mL) injection pen folic acid (FOLVITE) 1 mg Take 2 [...] by mouth daily. Aqua Tg Silver oxyCODONE/acetaminophen Take 1 tablet by mouth 60 tablet 0 12/25/2016 (PERCOCET) 10/325 mg every 8 hours as needed tablet for Pain sertraline (ZOLOFT) 50 mg Take 1 Tab by mouth 60 Tab 0 06/13/2016 tablet daily. traMADol (ULTRAM) 50 mg Take 1-2 tab every 6 120 Tab 2 11/23/2016 tablet hours as needed for pain. as [...] encounter Visit Diagnoses Diagnosis Surgical follow-up care Follow-up examination, following unspecified surgery in this encounter
--- OUTSIDE RECORDS SUMMARY | 2017-01-21 19:53 | XMS REPORT | Encounter Summary ---
Author Author [facility] Organization [facility] Address Unknown Phone Unavailable Care Team Providers Care Musical String Maker Name Role Phone PCP Unavailable Reason for Visit * Reason Comments Error disregard Encounter Details Date Type Department Care Team Description 11/03/2016 Telephone [facility] Roro Jama MD Error ( disregard) Physicians - Clinical [address] Pharmacology [place] [address] [place] [address] PAV [phone] [place] [address] Social History Tobacco Use Types Packs/Day Years [...]
--- OUTSIDE RECORDS SUMMARY | 2017-01-21 19:53 | XMS REPORT | Encounter Summary ---
Author Author [facility] Organization [facility] Address Unknown Phone Unavailable Care Team Providers Care Pari Mutual Ticket Checker Name Role Phone PCP Unavailable Reason for Visit * Reason Comments Medication Follow-up Chlorzoxazone non-formulary Encounter Details Date Type Department Care Team Description 10/26/2016 Telephone [facility] Roro Jama MD Medication Follow-up Physicians - Clinical [address] (Chlorzoxazone Pharmacology [place] 1044 non-formulary) [address] [place] [address] PAV [phone] [place] [address] Social History Tobacco Use Types Packs/Day Years [...]
--- OUTSIDE RECORDS SUMMARY | 2017-01-21 19:53 | XMS REPORT | Encounter Summary ---
Author Author [facility] Organization [facility] Address Unknown Phone Unavailable Care Team Providers Care Business Solutions Consultant Name Role Phone PCP Unavailable Reason for Visit * Reason Comments Joint Pain Encounter Details Date Type Department Care Team Description 10/23/2016 Office Visit [facility] Roro Jama MD Rheumatoid arthritis Physicians - Internal [address] involving multiple sites Medicine [place] 1044 with positive rheumatoid [address] [place] [address] factor (HCC) (Primary Dx) OFFICE BLDG [phone] [address] [address] Social History Tobacco Use Types [...] Patient Instructions - Roro Jama MD - 10/23/2016 10:12 AM CDT 1. [...] Global Assessment: 6 Visual Analogue Scale - Criminology Professor Global Assessment: 3 CDAI TOTAL SCORE: 28 [...] Performing Laboratory [facility] [address] [place] [address] * C REACTIVE PROTEIN (CRP) (10/23/2016 10:44 AM) Component Value Ref Range C-Reactive Protein 0.23 <1.0 MG/DL Specimen Performing Laboratory [facility] [address] [place] [address] * CBC AND DIFF (10/23/2016 10:44 AM) [...] Performing Laboratory [facility] [address] [place] [address] in this encounter Visit Diagnoses Diagnosis Rheumatoid arthritis involving multiple sites with positive rheumatoid factor (HCC) - Primary in this encounter
--- OUTSIDE RECORDS SUMMARY | 2017-01-21 19:53 | XMS REPORT | Encounter Summary ---
Author Author [facility] Organization [facility] Address Unknown Phone Unavailable Care Team Providers Care Identity Management Developer Name Role Phone PCP Unavailable Reason for Visit * Reason Comments Follow-up Phone Call Encounter Details Date Type Department Care Team Description 10/25/2016 Telephone [facility] Roro Jama MD Follow-up Phone Call Physicians - Internal [address] [facility] Medicine [place] 1044 [address] [facility] [place] [address] OFFICE BLDG [phone] 4[address] [place] [address] Social History Tobacco Use Types [...]
--- OUTSIDE RECORDS SUMMARY | 2017-01-21 19:53 | XMS REPORT | Encounter Summary ---
Author Author [facility] Organization [facility] Address Unknown Phone Unavailable Care Team Providers Care Disc Jockey Name Role Phone PCP Unavailable Encounter Details Date Type Department Care Team Description 10/23/2016 [facility] Roro Jama MD Rheumatoid arthritis with Encounter [address] [place] [address] MS 1044 [place] [address] organ or systems [phone] involvement ([facility]) Social History Tobacco Use Types Packs/Day [...] Performing Laboratory [facility] [address] [place] [address] * C REACTIVE PROTEIN (CRP) (10/23/2016 10:44 AM) Component Value Ref Range C-Reactive Protein 0.23 <1.0 MG/DL Specimen Performing Laboratory [facility] [address] [place] [address] * CBC AND DIFF (10/23/2016 10:44 AM) [...] Performing Laboratory [facility] [address] [place] [address] in this encounter Visit Diagnoses Diagnosis Rheumatoid arthritis involving multiple sites with positive rheumatoid factor (HCC) in this encounter Admitting Diagnoses Diagnosis Rheumatoid arthritis with rheumatoid factor of multiple sites without organ or systems involvement (HCC) Rheumatoid arthritis with rheumatoid factor of multiple sites without organ or systems involvement in this encounter
--- OUTSIDE RECORDS SUMMARY | 2017-01-21 19:53 | XMS REPORT | Encounter Summary ---
Author Author [facility] Organization [facility] Address Unknown Phone Unavailable Care Team Providers Care Fabric Machine Operator Name Role Phone PCP Unavailable Reason for Visit * Reason Comments Follow-up Phone Call Encounter Details Date Type Department Care Team Description 10/23/2016 Telephone [facility] Roro Jama MD Follow-up Phone Call Physicians - Internal [address] [facility] Medicine [place] 1044 [address] [facility] [place] [address] OFFICE BLDG [phone] 4[address] [place] [address] Social History Tobacco Use Types [...]
--- OUTSIDE RECORDS SUMMARY | 2017-01-21 19:53 | XMS REPORT | Encounter Summary ---
Author Author [facility] Organization [facility] Address Unknown Phone Unavailable Care Team Providers Care Bitumastic Applier Name Role Phone PCP Unavailable Reason for Visit * Reason Comments Results Encounter Details Date Type Department Care Team Description 10/24/2016 Telephone [facility] Roro Jama MD Results Physicians - Internal [address] [facility] Medicine [place] 1044 [address] [facility] [place] [address] OFFICE BLDG [phone] [address] [address] Social History Tobacco Use Types [...]
--- OUTSIDE RECORDS SUMMARY | 2017-01-21 19:54 | XMS REPORT ---
Author Author MARLEY BLANDON [facility] Address [address] [place] [address] Care Team Providers Care Licensed Psychologist Manager Name Role Phone MARLEY BLANDON Unavailable PROBLEMS Type Condition ICD9-CM Code [id number] Code Onset Dates Condition Status SNOMED Code Problem Reactive depression F32.9 Active 07270322 Problem Rheumatoid arthritis M06.9 Active 68626680 ALLERGIES Unknown Allergies SOCIAL HISTORY No smoking Hx information available PLAN OF CARE VITAL SIGNS MEDICATIONS Unknown Medications RESULTS No Results PROCEDURES No Known procedures IMMUNIZATIONS No Known Immunizations
--- OUTSIDE RECORDS SUMMARY | 2017-01-21 19:55 | XMS REPORT | Continuity of Care Document ---
Author Author [facility] Address Unknown Phone Unavailable Allergies Active Description Code Type Severity Reaction Onset Reported/Identified Relationship to Patient Clinical Status Yes Hydrocodone Drug Allergy N/A N/A 05/16/2011 Medications Problems Date Dx Coded Attending Type Code Diagnosis Diagnosed By 04/12/2011 305.1 NICOTINE DEPENDENCE 04/12/2011 611.72 BREAST LUMP OR MASS RIGHT 04/12/2011 CINDY URIAS DO 305.1 NICOTINE DEPENDENCE 04/12/2011 CINDY URIAS DO K 611.72 BREAST LUMP OR MASS RIGHT 04/12/2011 CINDY URIAS DO K 305.1 NICOTINE DEPENDENCE 04/12/2011 CINDY URIAS DO K 611.72 BREAST LUMP OR MASS RIGHT 04/12/2011 ELEONORA BRIELLES, GRACE M 305.1 NICOTINE DEPENDENCE 04/12/2011 ELEONORA GRACE RICARDO M 611.72 BREAST LUMP OR MASS RIGHT 04/12/2011 EILEEN DUONG APRN L 305.1 NICOTINE DEPENDENCE 04/12/2011 EILEEN DUONG APRN L 611.72 BREAST LUMP OR MASS RIGHT 04/12/2011 STEPHANY URIAS DOA K 305.1 NICOTINE DEPENDENCE 04/12/2011 CINDY URIAS DO K 611.72 BREAST LUMP OR MASS RIGHT 04/12/2011 CINDY URIAS DO K 305.1 NICOTINE DEPENDENCE 04/12/2011 CINDY URIAS DO K 611.72 BREAST LUMP OR MASS RIGHT 04/12/2011 MARLEY BLANDON MD 305.1 NICOTINE DEPENDENCE 04/12/2011 MARLEY BLANDON MD 611.72 BREAST LUMP OR MASS RIGHT 05/16/2011 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 05/16/2011 724.2 LUMBAGO 05/16/2011 CINDY URIAS DO 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 05/16/2011 CINDY URIAS DO 724.2 LUMBAGO 05/16/2011 URIAS DO CINDY K 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 05/16/2011 URIAS DO CINDY K 724.2 LUMBAGO 05/16/2011 ELEONORA DDS, GRACE Clark 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 05/16/2011 ELEONORA DDS, GRACE M 724.2 LUMBAGO 05/16/2011 EATEILEEN GEE APRN L 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 05/16/2011 EILEEN DUONG APRN L 724.2 LUMBAGO 05/16/2011 URIAS DO, CINDY K 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 05/16/2011 URIAS DO CINDY K 724.2 LUMBAGO 05/16/2011 URIAS DO CINDY K 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 05/16/2011 URIAS DO CINDY K 724.2 LUMBAGO 05/16/2011 MARLEY BLANDON MD 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 05/16/2011 MARLEY BLANDON MD 724.2 LUMBAGO 09/17/2012 625.3 DYSMENORRHEA 09/17/2012 626.2 EXCESSIVE OR FREQUENT MENSTRUATION 09/17/2012 V73.81 HPV SCREENING 09/17/2012 V76.2 CERVICAL CANCER SCREENING (PAP SMEAR) 09/17/2012 BRIDGETT MOSES CINDY K 625.3 DYSMENORRHEA 09/17/2012 BRIDGETT MOSES CINDY K 626.2 EXCESSIVE OR FREQUENT MENSTRUATION 09/17/2012 BRIDGETT MOSES CINDY K V73.81 HPV SCREENING 09/17/2012 BRIDGETT MOSES CINDY K V76.2 CERVICAL CANCER SCREENING (PAP SMEAR) 09/17/2012 URIAS DO CINDY K 625.3 DYSMENORRHEA 09/17/2012 URIAS DO CINDY K 626.2 EXCESSIVE OR FREQUENT MENSTRUATION 09/17/2012 URIAS DO CINDY K V73.81 HPV SCREENING 09/17/2012 URIAS DO CINDY K V76.2 CERVICAL CANCER SCREENING (PAP SMEAR) 09/17/2012 ELEONORA DDS, GRACE M 625.3 DYSMENORRHEA 09/17/2012 ELEONORA DDS, GRACE Clark 626.2 EXCESSIVE OR FREQUENT MENSTRUATION 09/17/2012 ELEONORA HANNAHS, GRACE Clark V73.81 HPV SCREENING 09/17/2012 ELEONORA DDSGRACE V76.2 CERVICAL CANCER SCREENING (PAP SMEAR) 09/17/2012 AD EILEEN BRISENO 625.3 DYSMENORRHEA 09/17/2012 AD EILEEN BRISENO L 626.2 EXCESSIVE OR FREQUENT MENSTRUATION 09/17/2012 AD EILEEN BRISENO L V73.81 HPV SCREENING 09/17/2012 AD EILEEN BRISENO L V76.2 CERVICAL CANCER SCREENING (PAP SMEAR) 09/17/2012 URIAS DO CINDY K 625.3 DYSMENORRHEA 09/17/2012 URIAS DO CINDY K 626.2 EXCESSIVE OR FREQUENT MENSTRUATION 09/17/2012 URIAS DO CINDY K V73.81 HPV SCREENING 09/17/2012 URIAS DO CINDY K V76.2 CERVICAL CANCER SCREENING (PAP SMEAR) 09/17/2012 URIAS DO CINDY K 625.3 DYSMENORRHEA 09/17/2012 URIAS DO CINDY K 626.2 EXCESSIVE OR FREQUENT MENSTRUATION 09/17/2012 URIAS DO CINDY K V73.81 HPV SCREENING 09/17/2012 URIAS DO CINDY K V76.2 CERVICAL CANCER SCREENING (PAP SMEAR) 09/17/2012 MARLEY BLANDON MD 625.3 DYSMENORRHEA 09/17/2012 MARLEY BLANDON MD 626.2 EXCESSIVE OR FREQUENT MENSTRUATION 09/17/2012 MARLEY BALNDON MD V73.81 HPV SCREENING 09/17/2012 MARLEY BLANDON MD V76.2 CERVICAL CANCER SCREENING (PAP SMEAR) 01/20/2013 BRIDGETT MOSES CINDY K 724.4 BACK PAIN WITH RADIATION 01/20/2013 URIAS DO CINDY K 724.4 BACK PAIN WITH RADIATION 01/20/2013 GRACE CREWS DDS 724.4 BACK PAIN WITH RADIATION 01/20/2013 EILEEN DUONG APRN 724.4 BACK PAIN WITH RADIATION 01/20/2013 URIAS STEPHANY MOSESA K 724.4 BACK PAIN WITH RADIATION 01/20/2013 URIAS STEPHANY MOSESA K 724.4 BACK PAIN WITH RADIATION 01/20/2013 MARLEY BLANDON MD 724.4 BACK PAIN WITH RADIATION 06/11/2013 EILEEN DUONG APRN V70.0 NORMAL EXAMINATION 06/11/2013 CINDY URIAS DO V70.0 NORMAL EXAMINATION 06/11/2013 CINDY URIAS DO V70.0 NORMAL EXAMINATION 06/11/2013 MARLEY BLANDON MD V70.0 NORMAL EXAMINATION 04/06/2014 CINDY URIAS DO 723.1 CERVICALGIA 04/06/2014 CINDY URIAS DO 723.1 CERVICALGIA 04/06/2014 MARLEY BLANDON MD 723.1 CERVICALGIA 06/05/2014 CINDY URIAS DO 719.49 PAIN IN JOINT INVOLVING MULTIPLE SITES 06/05/2014 MARLEY BLANDON MD 719.49 PAIN IN JOINT INVOLVING MULTIPLE SITES 06/11/2014 CINDY URIAS DO 626.8 OTHER DISORDERS OF MENSTRUATION AND OTHER ABNORMAL BLEEDING FROM FEMALE GENITAL TRACT 06/11/2014 CINDY URIAS DO V76.10 BREAST CANCER SCREENING 06/11/2014 MARLEY BLANDON MD 626.8 OTHER DISORDERS OF MENSTRUATION AND OTHER ABNORMAL BLEEDING FROM FEMALE GENITAL TRACT 06/11/2014 MARLEY BLANDON MD V76.10 BREAST CANCER SCREENING 06/17/2014 MARLEY BLANDON MD 714.0 RHEUMATOID ARTHRITIS 07/08/2014 MARLEY BLANDON MD 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 Procedures Code [place] [address] US PELVIC COMPL (REFLEX CPT- 36131) 09/19/2012 06193 PAP SMEAR 2012 Q0091 PAP SMEAR OBTAIN SMEAR 09/19/2012 07641 UA LONG DIP 06/11 08649 ROUTINE VENIPUNCTURE 06/09/2014 80901 CBC 06/09/2014 64741 CMP 06/09/2014 [id number] GFR CALC (RESULT ONLY) 06/09/2014 42797 SED/ESR RATE RML 06/09/2014 22573 RA FACTOR 2014 02273 ASO 06/10/2014 ANAANA MALIA ANALYZER (SCREEN) 06/10/2014 42033 TRICHOMONAS (IN-HOUSE) 06/11/2014 71325 US PELVIC COMPL (REFLEX CPT- 21023) 06/11/2014 17427 MAMMOGRAM, SCREENING 06/11/2014 28971 CULTURE UROGENITAL 06/11/2014 64327 GC/CHLAM PROBE (STATE) 06/11/2014 54023 PAP SMEAR 2014 48749 ROUTINE VENIPUNCTURE 07/20/2014 70551 CBC 07/20/2014 24541 CMP 07/20/2014 [id number] GFR CALC (RESULT ONLY) 07/20/2014 Results Encounters ACCT No. Visit Date/Time Discharge Status Pt. Type Provider Facility Loc./Unit Complaint [id number] 07/20/2014 10:09:00 07/20/2014 23: 59:59 CLS Outpatient JAMIA TELLES, MARLEY [id number] 06/11/2014 11:16:00 06/11/2014 23: 59:59 CLS Outpatient CINDY URIAS DO [id number] 04/06/2014 11:40:00 04/06/2014 23: 59:59 CLS Outpatient CINDY URIAS DO [id number] 06/11/2013 10:41:00 06/11/2013 23: 59:59 CLS Outpatient EILEEN DUONG APRN [id number] 04/29/2013 11:08:00 04/29/2013 23: 59:59 CLS Outpatient GRACE CREWS DDS [id number] 02/18/2013 09:11:00 02/18/2013 23: 59:59 CLS Outpatient CINDY URIAS DO [id number] 01/20/2013 09:07:00 01/20/2013 23: 59:59 CLS Outpatient CINDY URIAS DO [id number] 09/17/2012 11:19:00 Document Registration
[2017-01-21] MEDS ORDERED: ETAN50PE (19:58)
[2017-01-21] MEDS ORDERED: FOLI1TAB24 (19:58)
--- NOTE | 2017-01-21 20:15 | ED Neck-Back Pain/Injury ---
General Chief Complaint: Head/Cervical Problems Stated Complaint: NECK BACK PAIN Nursing Triage Note: UPPER BACK/ NECK PAIN X2 WEEKS. NO KNOWN INURY REPORTS WORSE TONIGHT. Nursing Sepsis Screen: No Definite Risk Source of Information: Patient Exam Limitations: No Limitations History of Present Illness Time Seen by Provider: 20:14 Location: Paraspinous Muscles Timing/Duration: Constant, Other (2 weeks onset) Pain/Injury Location: Back, Neck Method of Injury: Unknown (denies known injury) Modifying Factors: Worse With Movement, Worse With Other (worse with palpation) Associated Symptoms: muscle spasms, No fever, No weakness, No numbness in legs/ feet, No tingling in legs/feet, No sensory/motor loss, No lower back pain, No loss of bladder control, No loss of bowel control Allergies and Home Medications Allergies Coded Allergies: No Known Drug Allergies (Unverified , 10/08/16) Home Medications Adalimumab 40 Mg/0.8 Ml Pen.ij.kit, (Reported) Baclofen 10 Mg Tablet, (Reported) Citalopram Hydrobromide 40 Mg Tablet, (Reported) Etanercept 50 Mg/1 Ml Pen.injctr, (Reported) Folic Acid 1 Mg Tablet, (Reported) Hydroxyzine HCl 25 Mg Tablet, (Reported) Methotrexate Sodium 2.5 Mg Tablet, (Reported) Ondansetron HCl 4 Mg Tablet, (Reported) Oxycodone HCl/Acetaminophen 1 Each Tablet, 1 EACH PO Q6H, #10 Do not fill unless Augmentin is also filled Prescribed by: EMMY RÍOS on 01/01/172051 Oxycodone HCl/Acetaminophen 1 Each Tablet, 1 EACH PO Q6H PRN for pain, #6 Ref 0 Prescribed by: BRIAN AMADOR on 01/21/172030 Prednisone 20 Mg Tab, 40 MG PO DAILY, #10 Ref 0 Prescribed by: BRIAN AMADOR on 01/21/172030 Tramadol HCl 50 Mg Tablet, (Reported) Constitutional: No chills, No dizziness, No fever, No malaise, No weakness EENTM: no symptoms reported Respiratory: No cough, No short of breath Cardiovascular: No chest pain, No palpitations Gastrointestinal: no symptoms reported Genitourinary: no symptoms reported Musculoskeletal: see HPI Skin: no symptoms reported Psychiatric/Neurological: Denies Numbness, Denies Paresthesia, Denies Tingling , Denies Weakness All Other Systems Reviewed Negative Unless Noted: Yes (Negative excepted noted.) Past Spoqheb-Iupavq-Cusdfl Hx Patient Social History Alcohol Use: Denies Use Recreational Drug Use: No Smoking Status: Current Everyday Smoker Type Used: Cigarettes 2nd Hand Smoke Exposure: Yes Recent Foreign Travel: No Contact w/Someone Who Travel: No Recent Infectious Disease Expo: No Recent Hopitalizations: No Immunizations Up To Date Tetanus Booster (TDap): Unknown Seasonal Allergies Seasonal Allergies: No Surgeries History of Surgeries: Yes (right elbow replacement, SKIN CANCER) Surgeries: Gallbladder Respiratory History of Respiratory Disorde: No Cardiovascular History of Cardiac Disorders: No Neurological History of Neurological Disord: No Reproductive System : No CAT SCAN TECH History: Menopausal Genitourinary History of Genitourinary Disor: No Gastrointestinal History of Gastrointestinal Di: No Musculoskeletal History of Musculoskeletal Dis: Yes ( has Auto-Immune disorder also) Musculoskeletal Disorders: Arthritis, Rheumatoid Arthritis, Chronic Back Pain Endocrine History of Endocrine Disorders: Yes (Auto Immune disorder) HEENT History of HEENT Disorders: No Cancer History of Cancer: Yes Cancer: Skin Did You Recieve Any Treatments: Yes Type of Tx Receive: Chemotherapy Psychosocial History of Psychiatric Problem: No Integumentary History of Skin or Integumenta: Yes (Face cancer surgery in Jan 2016) Blood Transfusions History of Blood Disorders: No Reviewed Nursing Assessment Reviewed/Agree w Nursing PMH: Yes Family Medical History Significant Family History: No Pertinent Family Hx Physical Exam Vital Signs Vital Sign - Last 12Hours 01/21/17 19:58 Temp 97.7 Pulse 83 Resp 16 B/P (MAP) 132/65 Pulse Ox 96 O2 Delivery Room Air Capillary Refill : Less Than 3 Seconds General Appearance: No Apparent Distress, WD/WN, Other (patient is lying on the bed comfortably. sits up from a lying position without difficulty.) HEENT: PERRL/EOMI, Pharynx Normal Neck: Full Range of Motion, Supple, Tender Lateral, No Tender Midline, No Other (muscle spasm of the posterior paraspinous muscles.) Cardiovascular: Regular Rate, Rhythm, No Edema, No Murmur, Normal Peripheral Pulses Respiratory: Lungs Clear, Normal Breath Sounds, No Accessory Muscle Use, No Respiratory Distress Peripheral Pulses: 2+ Dorsalis Pedis (R), 2+ Left Dors-Pedis (L), 2+ Radial Pulses (R), 2+ Radial Pulses (L) Gastrointestinal: Normal Bowel Sounds, Non Tender, Soft Back: Normal Inspection, No Vertebral Tenderness, No Decreased Range of Motion , Muscle Spasm, Other (paraspinous tenderness of the upper back bilaterally with muscle spasm.) Extremity: Normal Capillary Refill, Normal Inspection, Normal Range of Motion, Non Tender, No Calf Tenderness, No Pedal Edema Neurologic/Psychiatric: Alert, Oriented x3, No Motor/Sensory Deficits, Normal Mood/Affect Skin: Normal Color, Warm/Dry Progress/Results/Core Measures Results/Orders My Orders Orders - BRIAN AMADOR Ketorolac Injection (Toradol Injection) (01/21/17 20:26) Orphenadrine Injection (Norflex Injectio (01/21/17 20:26) Oxycodone/Apap 5/325mg Tablet (Percocet (01/21/17 20:26) Vital Signs/I&O Vital Sign - Last 12Hours 01/21/17 01/21/17 01/21/17 01/21/17 19:58 20:33 20:34 20:34 Temp 97.7 97.7 97.7 97.7 Pulse 83 Resp 16 B/P (MAP) 132/65 Pulse Ox 96 O2 Delivery Room Air 01/21/17 20:40 Temp 97.3 Pulse 74 Resp 16 Pulse Ox 95 O2 Delivery Room Air Blood Pressure Mean: 87 Departure Communication (Admissions) Progress Notes Patient seen and evaluated. Patient given Toradol 30 mg IM, Norflex 60 mg IM, and two Percocet 5/325 mg. Plan for discharge to home with follow-up as an outpatient with Torrey Fisher or ginny jama for recheck and all narcotic medication refills. Impression Impression: Primary Impression: Strain of muscle, fascia and tendon at neck level, initial encounter Additional Impression: Strain of muscle and tendon of back wall of thorax, initial encounter Disposition: HOME, SELF-CARE Condition: Improved Departure-Patient Inst. Decision time for Depature: 20:28 Referrals: NO,LOCAL PHYSICIAN (PCP) Primary Care Physician TORREY FISHER MD Patient Instructions: Cervical Muscle Strain (DC) Add. Discharge Instructions: All discharge instructions reviewed with patient and/or family. Voiced understanding. Medications as instructed. Take tramadol and baclofen as prescribed by Ginny Jama. Follow-up with Ginny Jama or Torrey Fisher for all further Percocet prescriptions. Use a heating pad or pack as needed for pain. Avoid heavy lifting, pushing, or pulling. Follow-up with your primary care physician for recheck as an outpatient if no improvement in symptoms in 7- 10 days. Return in the emergency department for worsened symptoms, bowel incontinence, bladder incontinence, or any other concerns. Scripts Oxycodone HCl/Acetaminophen (Oxycodone-Acetaminophen 10-325) 1 Each Tablet 1 EACH PO Q6H Y for pain, #6 TAB 0 Refills Prov: BRIAN AMADOR 01/21/17 Prednisone (Prednisone) 20 Mg Tab 40 MG PO DAILY, #10 TAB 0 Refills Prov: BRIAN AMADOR 01/21/17 Copy Copies To 1: TORREY FISHER MD, GRETCHEN L PA Jan 21, 2017 20:15
[2017-01-21] MEDS ORDERED: oxyCODONE/APAP 5/325MG (PERCOCET 5) TABLET PO STA (20:26)
[2017-01-21] MEDS ORDERED: KETOROLAC 60 MG/2 ML VIAL IM STA (20:26)
[2017-01-21] MEDS ORDERED: ORPHENADRINE 60 MG/2 ML (NORFLEX) AMP IM STA (20:26)
[2017-01-21] MEDS ORDERED: OXYC-465 PO (20:31)
[2017-01-21] MEDS ORDERED: PRD20T PO (20:31)
[2017-01-21 20:40] VITALS: BP 132/97
== END 2017-01-21 20:40 | disposition home or self-care (01) ==
LOC: EDUNIT# 19:44 → ER 19:47
DX: S16.1XXA Strain of muscle, fascia and tendon at neck level, initial encounter (principal); S29.012A Strain of muscle and tendon of back wall of thorax, initial encounter; M06.9 Rheumatoid arthritis, unspecified; F17.210 Nicotine dependence, cigarettes, uncomplicated; Z85.828 Personal history of other malignant neoplasm of skin; Z92.21 Personal history of antineoplastic chemotherapy; X58.XXXA Exposure to other specified factors, initial encounter
CPT/HCPCS: 99284

== ENCOUNTER 2018-03-31 16:48 | Emergency (ER) | payer MEDICARE, MEDICAID ==
[~2018-03-31] VITALS: Ht 170.2 cm; Wt 77.1 kg
[~2018-03-31 16:48] MED LIST changes: +AZIT250T12 PO; -AZIT250T5 PO; +ETAN50PE; +FOLI1TAB24; -METH2.5T; +MTX2.5T; -OXYC-202 PO; +OXYC-465 PO; +OXYC1TAB12 PO; +PRD20T PO
--- OUTSIDE RECORDS SUMMARY | 2018-03-31 16:53 | XMS REPORT | Clinical Summary ---
Author Author [facility] Organization [facility] Address Unknown Phone Unavailable Care Team Providers Care Churn Operator Margarine Name Role Phone Roro Jama MD Unavailable Justin Dickens DO PCP Source Comments Some departments are not documenting in the electronic medical record. If you do not see the information that you expected, contact Release of Information in the Health Information Management department at [phone] for further assistance in locating additional records.[facility] Allergies Active Allergy Reactions Severity Noted Date Comments Prednisone MENTAL STATUS CHANGES Medium 05/30/2016 Agitation and confusion Current Medications Prescription Sig. Disp. Refills Start End Date Status Date Aloe Vera 5,000 mg cap Take 1 Cap by mouth Active daily. MULTIVITAMIN WITH Take 1 Tab by mouth Active MINERALS (MULTIVITAMIN & daily. MINERAL FORMULA PO) other medication Take 1 Dose by mouth Active daily. Aqua Tg Silver ondansetron (ZOFRAN) 4 mg TAKE ONE TABLET BY MOUTH 60 tablet 1 Active tablet EVERY 8 HOURS NEEDED 17 FOR NAUSEA AND VOMITING tofacitinib (XELJANZ) 5 Take 1 tablet by mouth 180 tablet 3 07/05/19 Active mg tablet twice daily. 18 methocarbamol (ROBAXIN) Take 1,000 mg by mouth Active 500 mg tablet three times daily. hydrOXYzine (ATARAX) 25 Take 25 mg by mouth every Active mg tablet 8 hours as needed for Itching. citalopram (CELEXA) 40 mg Take 40 mg by mouth Active tablet daily. metoprolol XL (TOPROL XL) Take 25 mg by mouth Active 25 mg extended release daily. tablet simvastatin (ZOCOR) 10 mg Take 10 mg by mouth at Active tablet bedtime daily. furosemide (LASIX) 20 mg Take 20 mg by mouth every Active tabletIndications: Edema morning. amoxicillin (AMOXIL) 875 Take 875 mg by mouth Active mg tablet every 12 hours. 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 Back pain 02/21/2016 Overview: Hx injury 7 years ago falling down stairs Per pt herniated disc and spinal stenosis Constipation 02/21/2016 Last Assessment & Plan: See above Rheumatoid arthritis involving multiple sites ([facility]) 12/17/2015 S/P cholecystectomy 12/17/2015 Fever 12/17/2015 Cervical cancer ([facility]) 12/17/2015 Overview: Early 20s Urinary incontinence 12/17/2015 Overview: Large leak on exam with valsalva 5 pads /day Last Assessment & Plan: Timed and double void Avoid constipation - daily miralax Decrease soda MRI of back~ Lumbar and Sacral MRI URD with and without pessary Bactrim 2 doses Erx and reviewed dosing FU 4 months Encounters Date Type Specialty Care Team Description 03/18/2018 Pharmacy Visit 03/18/2018 Pharmacy Visit 03/15/2018 Pharmacy Visit 03/14/2018 Pharmacy Visit 03/13/2018 Pharmacy Visit 03/13/2018 Pharmacy Visit 02/14/2018 Pharmacy Visit 01/30/2018 Pharmacy Visit 01/30/2018 Pharmacy Visit from Last 3 Months Immunizations Name Dates [...] Tobacco Use Types Packs/Day Years Used Date Former Smoker Cigarettes 0.25 30 Quit: 06/07/2017 Smokeless Tobacco: Never Used Tobacco Cessation: Ready to Quit: Yes; Counseling Given: Yes Comments: in process of quitting Alcohol Use Drinks/Week oz/Week Comments No 0 Standard 0.0 drinks or equivalent Sex Assigned at Date Recorded Not on file Last Filed Vital Signs Vital Sign Reading Time Taken Blood Pressure 152/85 10/05/2017 10:30 AM CDT Pulse 86 10/05/2017 10:30 AM CDT Temperature 37.3 C (99.2 F) 10/05/2017 10:30 AM CDT Respiratory Rate 14 10/05/2017 10:30 AM CDT Oxygen Saturation 94% 10/05/2017 10:30 AM CDT Inhaled Oxygen - - Concentration Weight 78.7 kg (173 lb 9.6 oz) 10/05/2017 10:30 AM CDT Height 173.7 cm (5' 8.39") 10/05/2017 10:30 AM CDT Body Mass Index 26.1 10/05/2017 10:30 AM CDT Plan of Treatment Health Maintenance Due Date Last Done Comments PHYSICAL (COMPREHENSIVE) 1971 EXAM HIV SCREENING 1979 DTAP/TDAP VACCINES (1 - 1982 Tdap) CERVICAL CANCER SCREENING 1994 BREAST CANCER SCREENING 2004 COLORECTAL CANCER 2014 SCREENING SHINGLES RECOMBINANT 2014 VACCINE (1 of 2) INFLUENZA VACCINE 11/28/2017 HEPATITIS C SCREENING Completed 12/22/2015 Implants Implanted Type Area Retort Furnace Operator Device Expiration Model / Identifier Date Serial / Lot Cement Bone Palacos Lv+G Gentamicin Right: CHRISTEN:CHRISTEN 01/27/2018 [id number] 40gm Green Elbow US 1 / Implanted: Qty: 2 on 06/07/2016 by [id number] Иван Martinez MD 1 / [id number] Humeral Screw Kit Right: CHRISTEN:CHRISTEN 11/27/2025 [id number] Implanted: Qty: 1 on 06/07/2016 by Elbow US 0 / Иван Martinez MD [id number] 0 / [id number] Christen Nexel Total Elbow Ulnar Right: 04/29/2025 [id number] Component Elbow 7 / Implanted: Qty: 1 on 06/07/2016 by [id number] Иван Martinez MD 7 [id number] Stem Humeral 100mm 4mm Elbow Right: CHRISTEN: ORTHO 08/27/2025 [id number] Implanted: Qty: 1 on 06/07/2016 by Mikey 0 / Иван Martinez MD [id number] Kit Articulation Nexel 4 Right: UNIDENTIFIED 10/28/2019 Implanted: Qty: 1 on 06/07/2016 by Mikey [facility] / Иван Martinez MD [id number] Results Not on filefrom Last 3 Months
--- OUTSIDE RECORDS SUMMARY | 2018-03-31 16:53 | XMS REPORT | Encounter Summary ---
Author Author [facility] Organization [facility] Address Unknown Phone Unavailable Care Team Providers Care Nipple Threader Name Role Phone Roro Jama MD Unavailable Justin Dickens DO PCP Encounter Details Date Type Department Care Team Description 01/30/2018 Pharmacy Visit [facility] [id number] [place] [address] [place] [id number] Social History Tobacco Use Types Packs/Day Years Used Date Former Smoker Cigarettes 0.25 30 Quit: 06/07/2017 Smokeless Tobacco: Never Used Comments: in process [...]
--- OUTSIDE RECORDS SUMMARY | 2018-03-31 16:53 | XMS REPORT | Encounter Summary ---
Author Author [facility] Organization [facility] Address Unknown Phone Unavailable Care Team Providers Care Material Stockkeeper Yard Name Role Phone Roro Jama MD Unavailable Justin Dickens DO PCP Encounter Details Date Type Department Care Team Description 03/14/2018 Pharmacy Visit [facility] [id number] [place] [id number] Social History Tobacco Use Types Packs/Day Years [...]
--- OUTSIDE RECORDS SUMMARY | 2018-03-31 16:53 | XMS REPORT | Encounter Summary ---
Author Author [facility] Organization [facility] Address Unknown Phone Unavailable Care Team Providers Care Rail Loader Name Role Phone Roro Jama MD Unavailable Justin Dickens DO PCP Encounter Details Date Type Department Care Team Description 02/14/2018 Pharmacy Visit [facility] [id number] [place] [id number] Social History Tobacco Use Types Packs/Day Years [...]
--- OUTSIDE RECORDS SUMMARY | 2018-03-31 16:53 | XMS REPORT | Encounter Summary ---
Author Author [facility] Organization [facility] Address Unknown Phone Unavailable Care Team Providers Care Mechanical Apprentice Name Role Phone Roro Jama MD Unavailable Justin Dickens DO PCP Encounter Details Date Type Department Care Team Description 03/18/2018 Pharmacy Visit [facility] [id number] [place] [phone] Social History Tobacco Use Types Packs/Day Years [...]
--- OUTSIDE RECORDS SUMMARY | 2018-03-31 16:53 | XMS REPORT | Encounter Summary ---
Author Author [facility] Organization [facility] Address Unknown Phone Unavailable Care Team Providers Care Hollow Handle Bench Worker Name Role Phone Roro Jama MD Unavailable Justin Dickens DO PCP Encounter Details Date Type Department Care Team Description 03/13/2018 Pharm[facility] [id number] [place] [phone] Social History Tobacco Use Types Packs/Day Years [...]
--- OUTSIDE RECORDS SUMMARY | 2018-03-31 16:53 | XMS REPORT | Encounter Summary ---
Author Author [facility] Organization [facility] Address Unknown Phone Unavailable Care Team Providers Care Insert Molding Operator Name Role Phone Roro Jama MD Unavailable Justin Dickens DO PCP Encounter Details Date Type Department Care Team Description 01/30/2018 Pharmacy Visit [facility] [id number] [place] [phone] Social History Tobacco Use Types Packs/Day Years [...]
--- OUTSIDE RECORDS SUMMARY | 2018-03-31 16:53 | XMS REPORT | Encounter Summary ---
Author Author [facility] Organization [facility] Address Unknown Phone Unavailable Care Team Providers Care Body Mechanic Name Role Phone Roro Jama MD Unavailable Justin Dickens DO PCP Encounter Details Date Type Department Care Team Description 03/15/2018 Pharm[facility] [phone] [place] [phone] Social History Tobacco Use Types Packs/Day Years [...]
--- OUTSIDE RECORDS SUMMARY | 2018-03-31 16:53 | XMS REPORT | Encounter Summary ---
Author Author [facility] Organization [facility] Address Unknown Phone Unavailable Care Team Providers Care Attending Physician Name Role Phone Roro Jama MD Unavailable Justin Dickens DO PCP Encounter Details Date Type Department Care Team Description 03/13/2018 Pharmacy Visit [facility] [id number] [place] [phone] Social History Tobacco Use Types Packs/Day Years [...]
--- OUTSIDE RECORDS SUMMARY | 2018-03-31 16:53 | XMS REPORT | Encounter Summary ---
Author Author [facility] Organization [facility] Address Unknown Phone Unavailable Care Team Providers Care Supervisor [employer] Name Role Phone Roro Jama MD Unavailable Justin Dickens DO PCP Encounter Details Date Type Department Care Team Description 03/18/2018 Pharmacy Visit Call Center Pharmacy [id number] [place] [id number] Social History Tobacco Use Types Packs/Day Years [...]
--- OUTSIDE RECORDS SUMMARY | 2018-03-31 16:57 | XMS REPORT | Continuity of Care Document ---
Author Author [facility] Address Unknown Phone Unavailable Allergies Active Description Code Type Severity Reaction Onset Reported/Identified Relationship to Patient Clinical Status Yes Hydrocodone Drug Allergy N/A N/A 05/16/2011 Yes No Known Drug Allergies [id number] Drug Allergy Unknown N/A 10/08/2016 Medications There is no data. Problems Date Dx Coded Attending Type Code Diagnosis Diagnosed By 04/12/2011 305.1 NICOTINE DEPENDENCE 04/12/2011 611.72 BREAST LUMP OR MASS RIGHT 04/12/2011 CINDY URIAS DO 305.1 NICOTINE DEPENDENCE 04/12/2011 CINDY URIAS DO K 611.72 BREAST LUMP OR MASS RIGHT 04/12/2011 CINDY URIAS DO K 305.1 NICOTINE DEPENDENCE 04/12/2011 STEPHANY URIAS DOA K 611.72 BREAST LUMP OR MASS RIGHT 04/12/2011 GRACE CREWS DDS M 305.1 NICOTINE DEPENDENCE 04/12/2011 GRACE CREWS DDS 611.72 BREAST LUMP OR MASS RIGHT 04/12/2011 EILEEN DUONG APRN L 305.1 NICOTINE DEPENDENCE 04/12/2011 EILEEN DUONG APRN L 611.72 BREAST LUMP OR MASS RIGHT 04/12/2011 CINDY URIAS DO K 305.1 NICOTINE DEPENDENCE 04/12/2011 STEPHANY URIAS DOA K 611.72 BREAST LUMP OR MASS RIGHT 04/12/2011 STEPHANY URIAS DOA K 305.1 NICOTINE DEPENDENCE 04/12/2011 CINDY URIAS DO K 611.72 BREAST LUMP OR MASS RIGHT 04/12/2011 MARLEY BLANDON MD 305.1 NICOTINE DEPENDENCE 04/12/2011 MARLEY BLANDON MD 611.72 BREAST LUMP OR MASS RIGHT 05/16/2011 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 05/16/2011 724.2 LUMBAGO 05/16/2011 URIAS DO, CINDY K 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 05/16/2011 URIAS DO, CINDY K 724.2 LUMBAGO 05/16/2011 URIAS DO, CINDY K 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 05/16/2011 URIAS DO, CINDY K 724.2 LUMBAGO 05/16/2011 ELEONORA DDS, GRACE M 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 05/16/2011 ELEONORA DDS, GRACE M 724.2 LUMBAGO 05/16/2011 EATEILEEN GEE APRN L 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 05/16/2011 EATON BILLING AND INSURANCE COORDINATOREILEEN Garcia L 724.2 LUMBAGO 05/16/2011 URIAS DO, CINDY K 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 05/16/2011 URIAS DO, CINDY K 724.2 LUMBAGO 05/16/2011 URIAS DO [...] BRIDGETT MOSES CINDY K 625.3 DYSMENORRHEA 09/17/2012 URIAS DO CINDY K 626.2 EXCESSIVE OR FREQUENT MENSTRUATION 09/17/2012 URIAS , CINDY K V73.81 HPV SCREENING 09/17/2012 URIAS DO CINDY K V76.2 CERVICAL CANCER SCREENING (PAP SMEAR) 09/17/2012 URIAS DO CINDY K 625.3 DYSMENORRHEA 09/17/2012 URIAS DO, CINDY K 626.2 EXCESSIVE OR FREQUENT MENSTRUATION 09/17/2012 URIAS DO, CINDY K V73.81 HPV SCREENING 09/17/2012 URIAS DO CINDY K V76.2 CERVICAL CANCER SCREENING (PAP SMEAR) 09/17/2012 ELEONORA DDS, GRACE M 625.3 DYSMENORRHEA 09/17/2012 ELEONORA DDS, GRACE M 626.2 EXCESSIVE OR FREQUENT MENSTRUATION 09/17/2012 ELEONORA DDS, GRACE M V73.81 HPV SCREENING 09/17/2012 ELEONORA DDS, GRACE M V76.2 CERVICAL CANCER SCREENING (PAP SMEAR) 09/17/2012 [employer]AT[employer]ILL[employer] INSURANCE COORDINATOREILEEN L 625.3 DYSMENORRHEA 09/17/2012 [employer] COORDINATOR, EILEEN L 626.2 EXCESSIVE OR FREQUENT MENSTRUATION 09/17/2012 [employer] INSURANCE COORDINATOR, EILEEN L V73.81 HPV SCREENING 09/17/2012 [employer]ILL[employer] INSURANCE COORDINATOR, EILEEN L V76.2 CERVICAL CANCER SCREENING (PAP SMEAR) 09/17/2012 URIAS STEPHANY MOSESA K 625.3 DYSMENORRHEA 09/17/2012 URIAS DO CINDY K 626.2 EXCESSIVE OR FREQUENT MENSTRUATION 09/17/2012 URIAS DO CINDY K V73.81 HPV SCREENING 09/17/2012 BRIDGETT [...] 626.2 EXCESSIVE OR FREQUENT MENSTRUATION 09/17/2012 MARLEY BLANDON MD V73.81 HPV SCREENING 09/17/2012 MARLEY BLANDON MD V76.2 CERVICAL CANCER SCREENING (PAP SMEAR) 01/20/2013 STEPHANY URIAS DOA K 724.4 BACK PAIN WITH RADIATION 01/20/2013 STEPHANY URIAS DOA K 724.4 BACK PAIN WITH RADIATION 01/20/2013 ELEONORA HANNAHS, GRACE M 724.4 BACK PAIN WITH RADIATION 01/20/2013 EILEEN DUONG APRN L 724.4 BACK PAIN WITH RADIATION 01/20/2013 STEPHANY URIAS DOA K 724.4 BACK PAIN WITH RADIATION 01/20/2013 CINDY URIAS DO 724.4 BACK PAIN WITH RADIATION 01/20/2013 MARLEY BLANDON MD 724.4 BACK PAIN WITH RADIATION 06/11/2013 EILEEN DUONG APRN Get V70.0 NORMAL EXAMINATION 06/11/2013 CINDY URIAS DO [...] BLANDON MD 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 09/11/2014 Ot 218.9 09/11/2014 Ot 218.9 09/11/2014 Ot V76.12 09/11/2014 Ot 714.0 09/11/2014 Ot 715.34 09/11/2014 Ot 714.0 09/11/2014 Ot 715.34 10/08/2016 Ot 218.9 UTERINE LEIOMYOMA NOS 10/08/2016 Ot V76.12 OTH SCREEN MAMMO-MALIGN NEOPLASM OF [place] 10/08/2016 Ot 714.0 RHEUMATOID ARTHRITIS 10/08/2016 Ot 715.34 LOC OSTEOARTH NOS-HAND 10/08/2016 LATOYA CHEUNG MD Ot F17.210 NICOTINE DEPENDENCE, CIGARETTES, UNCOMPL 10/08/2016 LATOYA CHEUNG MD Ot J02.9 ACUTE PHARYNGITIS, UNSPECIFIED 10/08/2016 LATOYA CHEUNG MD Ot R05 COUGH 10/08/2016 LATOYA CHEUNG MD Ot R06.02 SHORTNESS OF BREATH 01/01/2017 EMMY RÍOS APRN Ot M06.9 RHEUMATOID ARTHRITIS, UNSPECIFIED 01/01/2017 EMMY RÍOS APRN Ot S50.01XA CONTUSION OF RIGHT ELBOW, INITIAL ENCOUN 01/01/2017 EMMY RÍOS APRN Ot W22.03XA WALKED INTO FURNITURE, INITIAL ENCOUNTER 01/01/2017 EMMY RÍOS APRN Ot 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 01/07/2017 EMMY RÍOS APRN Ot M06.9 RHEUMATOID ARTHRITIS, UNSPECIFIED 01/07/2017 EMMY RÍOS APRN Ot S50.01XA CONTUSION OF RIGHT ELBOW, INITIAL ENCOUN 01/07/2017 EMMY RÍOS APRN Ot W22.03XA WALKED INTO FURNITURE, INITIAL ENCOUNTER 01/07/2017 EMMY RÍOS APRN Ot 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 01/21/2017 BRIAN KOCH Ot F17.210 NICOTINE DEPENDENCE, CIGARETTES, UNCOMPL 01/21/2017 BRIAN KOCH Ot M06.9 RHEUMATOID ARTHRITIS, UNSPECIFIED 01/21/2017 BRIAN KOCH Ot M54.2 CERVICALGIA 01/21/2017 BRIAN KOCH Ot S16.1XXA STRAIN OF MUSCLE, FASCIA AND TENDON AT N 01/21/2017 BRIAN KOCH Ot S29.012A STRAIN OF MUSCLE AND TENDON OF BACK WALL 01/21/2017 BRIAN KOCH Ot X58.XXXA EXPOSURE TO OTHER SPECIFIED FACTORS, INI 01/21/2017 BRIAN KOCH Ot Z85.828 PERSONAL HISTORY OF OTHER MALIGNANT NEOP 01/21/2017 BRIAN KOCH Ot Z92.21 PERSONAL HISTORY OF ANTINEOPLASTIC CHEMO 01/23/2017 BRIAN KOCH Ot M54.2 CERVICALGIA Procedures Code Description [place] [address] US PELVIC COMPL (REFLEX CPT - 65790) 09/19/2012 33853 PAP SMEAR 09/19/2012 Q0091 PAP SMEAR OBTAIN SMEAR 09/19/2012 99166 UA LONG DIP 06/11/2013 16880 ROUTINE VENIPUNCTURE 06/09/2014 66680 CBC 06/09/2014 09699 CMP 06/09/2014 3309184 GFR CALC (RESULT ONLY) 06/09/2014 98494 SED/ESR RATE RML 06/09/2014 79186 RA FACTOR 06/10/2014 01707 ASO 06/10/2014 ANAANA MALIA ANALYZER (SCREEN) 06/10/2014 14655 TRICHOMONAS (IN-HOUSE) 06/11/2014 75138 US PELVIC COMPL (REFLEX CPT - 49919) 06/11/2014 72803 MAMMOGRAM, SCREENING 06/11/2014 51049 CULTURE UROGENITAL 06/11/2014 55678 GC/CHLAM PROBE (STATE) 06/11/2014 24579 PAP SMEAR 06/11/2014 79366 ROUTINE VENIPUNCTURE 07/20/2014 22491 CBC 07/20/2014 59048 CMP 07/20/2014 1669539 GFR CALC (RESULT ONLY) 07/20/2014 Results Test Result Range Complete blood count (CBC) with automated white blood cell (WBC) differential - 10/08/16 13:55 Blood leukocytes automated count (number/volume) 6.4 10*3/uL 4.3-11.0 Blood erythrocytes automated count (number/volume) 4.58 10*6/uL 4.35-5.85 Venous blood hemoglobin measurement (mass/volume) 14.4 g/dL 11.5-16.0 Blood hematocrit (volume fraction) 44 % 35-52 Automated erythrocyte mean corpuscular volume 97 [foz_us] 80-99 Automated erythrocyte mean corpuscular hemoglobin (mass per erythrocyte) 31 pg 25-34 Automated erythrocyte mean corpuscular hemoglobin concentration measurement ( mass/volume) 33 g/dL 32-36 Automated erythrocyte distribution width ratio 18.1 % 10.0-14.5 Automated blood platelet count (count/volume) 211 10*3/uL 130-400 Automated blood platelet mean volume measurement 10.8 [foz_us] 7.4-10.4 Automated blood neutrophils/100 leukocytes 64 % 42-75 Automated blood lymphocytes/100 leukocytes 24 % 12-44 Blood monocytes/100 leukocytes 9 % 0-12 Automated blood eosinophils/100 leukocytes 3 % 0-10 Automated blood basophils/100 leukocytes 1 % 0-10 Blood neutrophils automated count (number/volume) 4.1 10*3 1.8-7.8 Blood lymphocytes automated count (number/volume) 1.6 10*3 1.0-4.0 Blood monocytes automated count (number/volume) 0.6 10*3 0.0-1.0 Automated eosinophil count 0.2 10*3/uL 0.0-0.3 Automated blood basophil count (count/volume) 0.0 10*3/uL 0.0-0.1 Fibrin D-dimer FEU measurement in platelet poor plasma (mass/volume) - 13:55 Fibrin D-dimer FEU measurement in platelet poor plasma (mass/volume) 2.79 ug/mL 0.00-0.49 Blood lactic acid measurement (moles/volume) - 10/08/16 13:55 Blood lactic acid measurement (moles/volume) 0.96 mmol/L 0.50-2.00 Comprehensive metabolic panel - 10/08/16 13:55 Serum or plasma sodium measurement (moles/volume) 141 mmol/L 135-145 Serum or plasma potassium measurement (moles/volume) 3.9 mmol/L 3.6-5.0 Serum or plasma chloride measurement (moles/volume) 111 mmol/L 98-107 Carbon dioxide 21 mmol/L 21-32 Serum or plasma anion gap determination (moles/volume) 9 mmol/L 5-14 Serum or plasma urea nitrogen measurement (mass/volume) 10 mg/dL 7-18 Serum or plasma creatinine measurement (mass/volume) 0.69 mg/dL 0.60-1.30 Serum or plasma urea nitrogen/creatinine mass ratio 14 NRG Serum or plasma creatinine measurement with calculation of estimated glomerular filtration rate > NRG Serum or plasma glucose measurement (mass/volume) 93 mg/dL 70-105 Serum or plasma calcium measurement (mass/volume) 9.9 mg/dL 8.5-10.1 Serum or plasma total bilirubin measurement (mass/volume) 0.4 mg/dL 0.1-1.0 Serum or plasma alkaline phosphatase measurement (enzymatic activity/volume) 68 U/L 40-136 Serum or plasma aspartate aminotransferase measurement (enzymatic activity/ volume) 52 U/L 5-34 Serum or plasma alanine aminotransferase measurement (enzymatic activity/volume ) 91 U/L 0-55 Serum or plasma protein measurement (mass/volume) 7.6 g/dL 6.4-8.2 Serum or plasma albumin measurement (mass/volume) 4.3 g/dL 3.2-4.5 Serum or plasma creatine kinase measurement (enzymatic activity/volume) - 10/08 13:55 Serum or plasma creatine kinase measurement (enzymatic activity/volume) 41 U/L 29-168 Serum or plasma troponin i.cardiac measurement (mass/volume) - 10/08/16 13:55 Serum or plasma troponin i.cardiac measurement (mass/volume) < ng/ mL <0.30 Serum or plasma C reactive protein measurement (mass/volume) - 10/08/16 13:55 Serum or plasma C reactive protein measurement (mass/volume) 0.23 mg /dL 0.00-0.50 Urine beta human chorionic gonadotropin (hCG) measurement - 10/08/16 14:00 Urine beta human chorionic gonadotropin (hCG) measurement NEGATIVE NEGATIVE Complete urinalysis with reflex to culture - 10/08/16 14:00 Urine color determination YELLOW NRG Urine clarity determination CLEAR NRG Urine pH measurement by test strip 5 5-9 Specific gravity of urine by test strip 1.015 1.016- 1.022 Urine protein assay by test strip, semi-quantitative NEGATIVE NEGATIVE Urine glucose detection by automated test strip NEGATIVE NEGATIVE Erythrocytes detection in urine sediment by light microscopy NEGATIVE NEGATIVE Urine ketones detection by automated test strip NEGATIVE NEGATIVE Urine nitrite detection by test strip NEGATIVE NEGATIVE Urine total bilirubin detection by test strip NEGATIVE NEGATIVE Urine urobilinogen measurement by automated test strip (mass/volume) NORMAL NORMAL Urine leukocyte esterase detection by dipstick NEGATIVE NEGATIVE Automated urine sediment erythrocyte count by microscopy (number/high power field) NONE NRG Automated urine sediment leukocyte count by microscopy (number/high power field ) [HPF] NRG Bacteria detection in urine sediment by light microscopy NEGATIVE NRG Squamous epithelial cells detection in urine sediment by light microscopy 0-2 NRG Crystals detection in urine sediment by light microscopy NONE NRG Casts detection in urine sediment by light microscopy NONE NRG Mucus detection in urine sediment by light microscopy NEGATIVE NRG Complete urinalysis with reflex to culture NO NRG Streptococcus pyogenes antigen detection - 10/08/16 14:52 Streptococcus pyogenes antigen detection NEGATIVE NEGATIVE Bacterial throat culture - 10/08/16 14:52 Bacterial throat culture NBS NRG Encounters ACCT No. Visit Date/Time Discharge Status Pt. Type Provider Facility Loc./Unit Complaint [id number] 07/20/2014 10:09:00 07/20/2014 23:59:59 CLS Outpatient MARLEY BLANDON MD [id number] 06/11/2014 11:16:00 06/11/2014 23:59:59 CLS Outpatient STEPHANY URIAS DOCarina Veliz [id number] 04/06/2014 11:40:00 04/06/2014 23:59:59 CLS Outpatient CINDY URIAS DO [id number] 06/11/2013 10:41:00 06/11/2013 23:59:59 CLS Outpatient EILEEN DUONG APRN Get [id number] 04/29/2013 11:08:00 04/29/2013 23:59:59 CLS Outpatient GRACE CREWS DDS [id number] 02/18/2013 09:11:00 02/18/2013 23:59:59 CLS Outpatient STEPHANY URIAS DOCarina Veliz [id number] 01/20/2013 09:07:00 01/20/2013 23:59:59 CLS Outpatient CINDY URIAS DO [id number] 09/17/2012 11:19:00 Document Registration [id number] 01/21/2017 19:47:00 01/21/2017 20:40:00 DIS Emergency BRIAN KOCH [facility] ER NECK BACK PAIN [id number] 01/01/2017 19:45:00 01/01/2017 20:52:00 DIS Emergency EMMY RÍOS APRN [facility] ER RT ELBOW BRUISING/ SWELLING [id number] 10/08/2016 12:31:00 10/08/2016 17:37:00 DIS Emergency LATOYA CHEUNG MD [facility] ER WEAKNESS/DIZZINESS [id number] 06/30/2014 10:19:00 Document Registration [id number] 06/30/2014 10:11:00 Document Registration [id number] 06/30/2014 10:07:00 Document Registration
[2018-03-31 17:23] LABS: BILIRUBIN,URINE NEGATIVE (NEGATIVE); CLARITY,URINE CLEAR; COLOR,URINE YELLOW; GLUCOSE, URINE (UA) NEGATIVE (NEGATIVE); KETONES,URINE NEGATIVE (NEGATIVE); LEUKOCYTE ESTERASE ,URINE 3+ (NEGATIVE); NITRITE,URINE POSITIVE (NEGATIVE); PH,URINE 6 (5-9); PROTEIN,URINE 2+ (NEGATIVE); UROBILINOGEN,URINE 1 MG/DL (NORMAL)
[2018-03-31 17:39] LABS: RBC,URINE RARE /HPF; WBC,URINE 25-50 /HPF
[2018-03-31 17:40] LABS: BACTERIA,URINE MODERATE /HPF
--- NOTE | 2018-03-31 17:46 | Diagnostic Imaging Report ---
INDICATION: Back pain with radiation to left lower extremity. EXAMINATION: CT of the lumbar spine was obtained without IV contrast. FINDINGS: There is no evidence of lumbar spine fracture. There is no subluxation or malalignment. There are six lumbar type vertebrae with lumbarization of S1. At L5-S1, there is prominent facet degenerative change with diffuse disc bulging causing significant central canal stenosis. At L4-5, there is prominent facet joint degenerative change as well, causing moderate central canal stenosis. At L3-4 and L2-3 and L1-L2, there is no significant canal stenosis or focal disc herniation. IMPRESSION: No acute fracture or subluxation in the lumbar spine. There is degenerative change at L4-5 and L5-S1, as described above, with significant canal stenosis, worse at the L5-S1 level. There is lumbarization of S1 with six lumbar type vertebrae. Dictated by: Dictated on workstation # [id number]
--- NOTE | 2018-03-31 17:53 | ED Back Pain ---
General Chief Complaint: Back Problems Stated Complaint: BACK HURTING Nursing Triage Note: PATIENT HERE FOR BACK PAIN. SHE HAS KNOWN HERNIATED DISC AND RHEUMATOID ARTHRITIS. PAIN RADIATES DOWN HER LEFT LEG. Nursing Sepsis Screen: No Definite Risk Source of Information: Patient Exam Limitations: No Limitations History of Present Illness Date Seen by Provider: Mar 31, 2018 Time Seen by Provider: 16:52 Initial Comments Patient is a 52 year old female who presents to the emergency room with complains of worsening chronic back pain for the past 2 week. She reports increasing low back pain and radiating pains down her left leg. She denies loss of bowel has had stress incontinence of bladder for the past 5 years, denies any changes in bowel or bladder elimination. Denies saddle paresthesia. Location: Lumbar Spine Radiation: Upper Legs (left) Associated Symptoms: tingling in legs/feet, lower back pain Allergies and Home Medications Allergies Coded Allergies: No Known Drug Allergies (Unverified , 10/08/16) Home Medications Nitrofurantoin Monohyd/M-Cryst 100 Mg Capsule, 1 TAB PO BID Prescribed by: RAHEEM ANDREWS on 03/31/18 1810 Patient Home Medication List Home Medication List Reviewed: Yes Review of Systems Constitutional: no symptoms reported, see HPI Musculoskeletal: see HPI, back pain All Other Systems Reviewed Negative Unless Noted: Yes Past Uknugon-Xhiqbl-Esjpiy Hx Past Med/Social Hx: Reviewed Nursing Past Med/Soc Hx Patient Social History Alcohol Use: Denies Use Recreational Drug Use: No Smoking Status: Current Everyday Smoker Type Used: Electronic/Vapor 2nd Hand Smoke Exposure: Yes Recent Foreign Travel: No Contact w/Someone Who Travel: No Recent Infectious Disease Expo: No Recent Hopitalizations: No Immunizations Up To Date Tetanus Booster (TDap): Unknown Seasonal Allergies Seasonal Allergies: No Past Medical History Surgeries: Yes (right elbow replacement, SKIN CANCER) Gallbladder Respiratory: No Cardiac: No Neurological: 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 Genitourinary: No Gastrointestinal: No Musculoskeletal: Yes ( has Auto-Immune disorder also) Arthritis, Rheumatoid Arthritis, Chronic Back Pain Endocrine: Yes (Auto Immune disorder) HEENT: No Cancer: Yes Skin Did You Recieve Any Treatments: Yes What Type of Treatment Did You: Chemotherapy Psychosocial: No Integumentary: Yes (Face cancer surgery in Jan 2016) Blood Disorders: No Family Medical History Reviewed Nursing Family Hx No Pertinent Family Hx Physical Exam Vital Signs Vital Signs - First Documented 03/31/18 16:52 Temp 97.7 Pulse 97 Resp 20 B/P (MAP) 105/88 (94) Pulse Ox 99 Capillary Refill : Less Than 3 Seconds Height, Weight, BMI Height: 5'7.00" Weight: 170lbs. 0oz. 77.267284yq; BMI Method:Stated General Appearance: No Apparent Distress, WD/WN Cardiovascular: Regular Rate, Rhythm, No Edema, No Gallop, No JVD, No Murmur, Normal Peripheral Pulses Respiratory: Chest Non Tender, Lungs Clear, Normal Breath Sounds, No Accessory Muscle Use, No Respiratory Distress, Accessory Muscle Use Back: Normal Inspection, No CVA Tenderness, Vertebral Tenderness (lumbar) Extremity: Normal Capillary Refill, No Pedal Edema Neurologic/Psychiatric: Alert, Oriented x3, Normal Mood/Affect Skin: Normal Color, Warm/Dry Progress/Results/Core Measures Results/Orders Lab Results Laboratory Tests Test 03/31/18 17:10 Range/Units Urine Color YELLOW Urine Clarity CLEAR Urine pH 6 5-9 Urine Specific [place] 1.020 1.016-1.022 Urine Protein 2+ H NEGATIVE Urine Glucose (UA) NEGATIVE NEGATIVE Urine Ketones NEGATIVE NEGATIVE Urine Nitrite POSITIVE H NEGATIVE Urine Bilirubin NEGATIVE NEGATIVE Urine Urobilinogen 1 NORMAL MG/DL Urine Leukocyte Esterase 3+ H NEGATIVE Urine RBC (Auto) 1+ H NEGATIVE Urine RBC RARE /HPF Urine WBC 25-50 H /HPF Urine Squamous Epithelial Cells 10-25 H /HPF Urine Crystals NONE /LPF Urine Bacteria MODERATE H /HPF Urine Casts NONE /LPF Urine Mucus LARGE H /LPF Urine Culture Indicated YES Micro Results Microbiology 03/31/18 Urine Culture - Final, Complete See Comments My Orders Orders - RAHEEM ANDREWS Ua Culture If Indicated (03/31/18 17:05) Ct Lumbar Spine Wo (03/31/18 17:05) Urine Culture (03/31/18 17:10) Nitrofurantoin Capsule,Macro (Macrobid C (03/31/18 18:15) Vital Signs/I&O 18 18 16:52 18:34 Temp 97.7 97.7 Pulse 97 97 Resp 20 20 B/P (MAP) 105/88 (94) 105/88 (94) Pulse Ox 99 99 Blood Pressure Mean: 94 Progress Progress Note : Time: 18:00 Progress Note The patient has pain medications, and muscle relaxers at home. She will be treated with abx for UTI. She agrees with plan of care, plans for follow up, return precautions were given. Diagnostic Imaging Diagonstic Imaging: CT Plain Films/CT/US/NM/MRI: other (L spine) Comments NAME: KHOI KIRK [facility] REC#: [id number] PT STATUS: DEP ER : 1965 PHYSICIAN: RAHEEM ANDREWS ADMIT DATE: 03/31/18/ER Signed Date of Exam: 03/31/18 CT LUMBAR SPINE WO INDICATION: Back pain with radiation to left lower extremity. EXAMINATION: CT of the lumbar spine was obtained without IV contrast. FINDINGS: There is no evidence of lumbar spine fracture. There is no subluxation or malalignment. There are six lumbar type vertebrae with lumbarization of S1. At L5-S1, there is prominent facet degenerative change with diffuse disc bulging causing significant central canal stenosis. At L4-5, there is prominent facet joint degenerative change as well, causing moderate central canal stenosis. At L3-4 and L2-3 and L1-L2, there is no significant canal stenosis or focal disc herniation. IMPRESSION: No acute fracture or subluxation in the lumbar spine. There is degenerative change at L4-5 and L5-S1, as described above, with significant canal stenosis, worse at the L5-S1 level. There is lumbarization of S1 with six lumbar type vertebrae. Dictated by: Dictated on workstation # [id number] Dict: 03/31/18 1737 Trans: 03/31/181850 Interpreted by: ANJELICA ZHANG MD Electronically signed by: ANJELICA ZHANG MD 03/31/181850 Reviewed: Reviewed by Me Departure Impression Primary Impression: Chronic back pain Additional Impression: Urinary tract infection Disposition: 01 HOME, SELF-CARE Condition: Stable/Unchanged Departure-Patient Inst. Decision time for Depature: 18:08 Referrals: NO,LOCAL PHYSICIAN (PCP/Family) Primary Care Physician Patient Instructions: MANAGING YOUR CHRONIC PAIN, Urinary Tract Infection, Adult (DC) Add. Discharge Instructions: Take your home medications as previously prescribed. Finish your entire course of your antibiotics. Lots of clear liquids to stay hydrated. Follow-up with her primary care provider within 1 week for recheck. Return back to the emergency room for any worsening symptoms or concerns as needed. All discharge instructions reviewed with patient and/or family. Voiced understanding. Scripts Nitrofurantoin Monohyd/M-Cryst (Macrobid 100 mg Capsule) 100 Mg Capsule 1 TAB PO BID for 5 Days, #10 CAP Prov: RAHEEM ANDREWS 03/31/18 RAHEEM ANDREWS Mar 31, 2018 17:53
[2018-03-31] MEDS ORDERED: NITR-65 PO (18:10)
[2018-03-31] MEDS ORDERED: NITROFURANTOIN 100 MG (MACROBID) CAPSULE PO ONE (18:15)
[2018-03-31 18:34] VITALS: BP 105/88
== END 2018-03-31 18:32 | disposition home or self-care (01) ==
LOC: EDUNIT# 16:48 → ER 16:49
DX: N39.0 Urinary tract infection, site not specified (principal); M54.9 Dorsalgia, unspecified; G89.29 Other chronic pain; M06.9 Rheumatoid arthritis, unspecified; F17.210 Nicotine dependence, cigarettes, uncomplicated; Z85.828 Personal history of other malignant neoplasm of skin; Z96.621 Presence of right artificial elbow joint; Z92.21 Personal history of antineoplastic chemotherapy; Z98.890 Other specified postprocedural states
CPT/HCPCS: 72131; 81000; 87088

== ENCOUNTER 2018-04-28 15:57 | Emergency (ER) | payer MEDICARE, MEDICAID ==
[~2018-04-28] VITALS: Ht 170.2 cm; Wt 77.1 kg
[~2018-04-28 15:57] MED LIST changes: +NITR-65 PO
--- OUTSIDE RECORDS SUMMARY | 2018-04-28 16:03 | XMS REPORT | Clinical Summary ---
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 If you do not see the information that you expected, contact Release of Information in the Health Information Management department at [phone] for further assistance in locating additional records.[facility] Allergies Comments Active Allergy Reactions Severity Noted Date Agitation and confusion Prednisone MENTAL STATUS Medium 05/30/2016 CHANGES Medications End Date Status Medication Sig Dispensed Refills Start Date Active Aloe Vera 5,000 mg cap Take 1 Cap by 0 mouth daily. Active MULTIVITAMIN WITH Take 1 Tab by 0 MINERALS (MULTIVITAMIN & mouth daily. MINERAL FORMULA PO) Active other medication Take 1 Dose 0 by mouth daily. Aqua Tg Silver Active ondansetron (ZOFRAN) 4 mg TAKE ONE 60 tablet 1 02/14/201 tablet TABLET BY 7 MOUTH EVERY 8 HOURS NEEDED FOR NAUSEA AND VOMITING Active tofacitinib (XELJANZ) 5 Take 1 tablet 180 tablet 3 07/04/201 mg tablet by mouth 8 twice daily. Active methocarbamol (ROBAXIN) Take 1,000 mg 0 500 mg tablet by mouth three times daily. Active hydrOXYzine (ATARAX) 25 Take 25 mg by 0 mg tablet mouth every 8 hours as needed for Itching. Active citalopram (CELEXA) 40 mg Take 40 mg by 0 tablet mouth daily. Active metoprolol XL (TOPROL XL) Take 25 mg by 0 25 mg extended release mouth daily. tablet Active simvastatin (ZOCOR) 10 mg Take 10 mg by 0 tablet mouth at bedtime daily. Active furosemide (LASIX) 20 mg Take 20 mg by 0 tabletIndications: Edema mouth every morning. Active amoxicillin (AMOXIL) 875 Take 875 mg 0 mg tablet by mouth every 12 hours. 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 Back pain 02/21/2016 Overview: Hx injury 7 years ago falling down stairs Per pt herniated disc and spinal stenosis Constipation 02/21/2016 Last Assessment & Plan: See above Rheumatoid arthritis involving multiple sites 12/17/2015 S/P cholecystectomy 12/17/2015 Fever 12/17/2015 Cervical cancer 12/17/2015 Overview: Early 20s Urinary incontinence 12/17/2015 Overview: Large leak on exam with valsalva 5 pads /day Last Assessment & Plan: Timed and double void Avoid constipation - daily miralax Decrease soda MRI of back~ Lumbar and Sacral MRI URD with and without pessary Bactrim 2 doses Erx and reviewed dosing FU 4 months Encounters Care Team Description Date Type Specialty Roro Jama MD Follow-up Phone Call 04/17/2018 Telephone Rheumatology from Last 3 Months Immunizations Name Dates Previously Given Next Due Pneumococcal Vaccine 07/24/2016 (23-Sudha Adult) Pneumococcal 12/17/2015 Vaccine(13-Sudha Peds/immunocompromised adult) Family History Medical History Relation Name Comments Heart Disease Father Heart Disease Paternal Grandmother Tumor Son Relation Name Status Comments Brother Alive Daughter Alive Father Alive Mother Alive Paternal Grandmother Sister Alive Son Alive Social History Date Tobacco Use Types Packs/Day Years Used Quit: 06/07/2017 Former Smoker Cigarettes 0.25 30 Smokeless Tobacco: Never Used Tobacco Cessation: Ready to Quit: Yes; Counseling Given: Yes Comments: in process of quitting Alcohol Use Drinks/Week oz/Week Comments No 0 Standard 0.0 drinks or equivalent Sex Assigned at Date Recorded Not on file Industry Job Start Date Occupation Not on file Not on file Not on file Travel End Travel History Travel Start No recent travel history available. Last Filed Vital Signs Time Taken Vital Sign Reading 10/05/2017 10:30 AM CDT Blood Pressure 152/85 10/05/2017 10:30 AM CDT Pulse 86 10/05/2017 10:30 AM CDT Temperature 37.3 C (99.2 F) 10/05/2017 10:30 AM CDT Respiratory Rate 14 10/05/2017 10:30 AM CDT Oxygen Saturation 94% - Inhaled Oxygen - Concentration 10/05/2017 10:30 AM CDT Weight 78.7 kg (173 lb 9.6 oz) 10/05/2017 10:30 AM CDT Height 173.7 cm (5' 8.39") 10/05/2017 10:30 AM CDT Body Mass Index 26.1 Plan of Treatment Health Maintenance Due Date Last Done Comments PHYSICAL (COMPREHENSIVE) 1971 EXAM HIV SCREENING 1979 DTAP/TDAP VACCINES (1 - 1982 Tdap) CERVICAL CANCER SCREENING 1994 BREAST CANCER SCREENING 2004 COLORECTAL CANCER 2014 SCREENING SHINGLES RECOMBINANT 2014 VACCINE (1 of 2) INFLUENZA VACCINE 11/28/2017 HEPATITIS C SCREENING Completed 12/22/2015 Implants Device Identifier Shelf Expiration Date Model / Serial / Lot Implanted Type Area Manufactur er 01/27/2018 [id number] / [id number] / [id number] Cement Bone Palacos Lv+G Gentamicin Right: Elbow CHRISTEN:ZIM 40gm [facility] Implanted: Qty: 2 on 06/07/2016 by Иван Martinez MD 11/27/2025 [id number] / [id number] / [id number] Humeral Screw Kit Right: Elbow CHRISTEN:ZIM Implanted: Qty: 1 on 06/07/2016 by [facility] Иван Martinez MD 04/29/2025 [id number] / [id number] / [id number] Christen Nexel Total Elbow Ulnar Right: Elbow Component Implanted: Qty: 1 on 06/07/2016 by Иван Martinez MD 08/27/2025 [id number] / [id number] / [id number] Stem Humeral 100mm 4mm Elbow Right: Elbow CHRISTEN: Implanted: Qty: 1 on 06/07/2016 by [facility]TH[facility] Иван Martinez MD 10/28/[id number] / [id number] / [id number] Kit Articulation Nexel 4 Right: Elbow UNIDENTIFI Implanted: Qty: 1 on 06/07/2016 by [facility] Иван South MD Results Not on filefrom Last 3 Months Insurance Payer Benefit Subscriber ID Type Phone Address Plan / Group MEDICARE MEDIC[place] xxxxxxxxxx [place], [place] Advance Directives Patient has advance care planning documents, and code status on file. For more information, please contact: [facility] [address] [place] [address] Date Inactivated Comments Code Status Date Activated 06/08/2016 9:19 PM Full Code 06/07/2016 8:19 PM Provider has discussed Code Status No, discussion not w/Patient or Family? necessary based on Dx
--- OUTSIDE RECORDS SUMMARY | 2018-04-28 16:04 | XMS REPORT | Encounter Summary ---
Author Author [facility] Organization [facility] Address Unknown Phone Unavailable Care Team Providers Care Chief Engineer Production Name Role Phone Roro Jama MD Unavailable Justin Dickens DO PCP Reason for Referral * Consult, Test & Treat (Routine) Referred By Contact Referred To Contact Status Reason Specialty Diagnoses / Procedures Roro Jama MD [address] [facility] [address] [place] [address] [facility] Jefferson Velásquez MD [facility] [address] [place] [address] No Auth Needed Specialty Services Rehabilitation Diagnoses Required Medicine Spinal stenosis of lumbar region, unspecified whether neurogenic claudication present Reason for Visit * Reason Comments Follow-up Phone Call Encounter Details Care Team Description Date Type Department Roro Jama MD [address] [facility] [address] [place] [address] [phone] Follow-up Phone Call 04/17/2018 Telephone [facility] [id number] [address] [place], [place] [id number] Social History Date Tobacco Use Types Packs/Day [...] Travel Start No recent travel history available. as of this encounter Functional Status Date of Assessment Functional Status Response 06/08/2016 Does the patient have a hearing impairment: No 06/08/2016 Does the patient have a visual impairment: No 06/08/2016 Does the patient have impaired ambulation: No 06/08/2016 Does the patient have an activity of daily living No (ADL) impairment: 06/08/2016 Does the patient have an instrumental activity of No daily living (IADL) impairment: Date of Assessment Cognitive Status Response 06/08/2016 Does the patient have a cognitive impairment: No as of this encounter Miscellaneous Notes * Telephone Encounter - Nella Melgoza - 04/24/2018 3:50 PM ADULT DAY CARE WORKER I called [facility] and was transferred to radiology but after several rings, no one answered. Faxed request for clouded images to radiology @ [phone]. Confirmation received @ 3:44pm T DAY CARE WORKER * Telephone Encounter - Roro Jama MD - 04/24/2018 12:14 PM ADULT DAY CARE WORKER CT lumbar spine 03/31/2018: Degenerative change at L4-5 and L5-S1 with significant canal stenosis worse at L5-S1 level. In setting of description of significant central canal stenosis, will plan to place Spine center referral. T DAY CARE WORKER * Telephone Encounter - Jolly Nguyen RN - 04/18/2018 5:45 PM ADULT DAY CARE WORKER Per Dr. Jama, patient needs to update lab monitoring and also to arrange follow-up with PLC CONTROLS ENGINEER at [facility]. T DAY CARE WORKER * Telephone Encounter - Nella Melgoza - 04/18/2018 2:22 PM ADULT DAY CARE WORKER Records received from [facility]. Documents put in Image now for scanning and a copy given to the doctor for review. Sending staff message to Dr Jama for review T DAY CARE WORKER * Telephone Encounter - Nella Melgoza - 04/18/2018 1:15 PM ADULT DAY CARE WORKER Faxed request for records and imaging to [facility] @ [phone]. Confirmation received @ 12:21pm T DAY CARE WORKER * Telephone Encounter - Jolly Nguyen RN - 04/17/2018 3:56 PM ADULT DAY CARE WORKER Patient left voicemail stating she was in the ED 2 weeks ago, has been following PCP in [place], is being treated with antibiotics, is inquiring if she should stop Xeljanz. Patient also states PCP is referring her to Orthopedic Physician for her back symptoms. Per Dr. Jama, advised patient to hold Xeljanz until antibiotics completed and illness/infection resolved, patient verbalized understanding. Patient states she took Bactrim earlier this month for UTI, but that has since resolved, is now taking Bactrim for impetigo. Patient states ED visit was due to lower back pain and lack of bladder control, had MRI of lower back that showed 3 herniated discs and spinal stenosis, PCP is in the process of ordering referral to Spine Clinic at , but patient unaware of status. Advised patient to keep us posted. Patient also inquiring about sooner appointment than 05/2018. Advised patient nurse will follow-up with Dr. Jama about possible visit with PLC CONTROLS ENGINEER. Request sent to Admin to obtain ED notes and MRI report and images from [facility]. T DAY CARE WORKER in this encounter Plan of Treatment Order Schedule Name Priority Associated Diagnoses Ordered: 04/24/2018 AMB REFERRAL TO SPINE CENTER Routine Spinal stenosis of lumbar region, unspecified whether neurogenic claudication present as of this encounter Visit Diagnoses Diagnosis Spinal stenosis of lumbar region, unspecified whether neurogenic claudication present - Primary in this encounter
--- OUTSIDE RECORDS SUMMARY | 2018-04-28 16:07 | XMS REPORT | Continuity of Care Document ---
Author Author [facility] of [facility] Address Unknown Phone Unavailable Allergies Active Description Code Type Severity Reaction Onset Reported/Identified Relationship to Patient Clinical Status Yes Hydrocodone Drug Allergy N/A N/A 05/16/2011 Yes No Known Drug Allergies [id number] Drug Allergy Unknown N/A 10/08/2016 Medications There [...] LUMBAR INTERVERTEBRAL DISC WITHOUT MYELOPATHY 05/16/2011 EATON WAXER FLOOREILEEN Garcia L 724.2 LUMBAGO 05/16/2011 URIAS DO, [...] CERVICAL CANCER SCREENING (PAP SMEAR) 09/17/2012 EATON WAXER FLOOREILEEN L 625.3 DYSMENORRHEA 09/17/2012 EATON WAXER FLOOR, EILEEN L 626.2 EXCESSIVE OR FREQUENT MENSTRUATION 09/17/2012 EATON WAXER FLOOR, EILEEN L V73.81 HPV SCREENING 09/17/2012 EATON WAXER FLOOR, EILEEN L V76.2 CERVICAL CANCER SCREENING (PAP [...] MD Ot J02.9 ACUTE PHARYNGITIS, UNSPECIFIED 10/08/2016 JONATAN TELLES, LATOYA Cameron Ot R05 COUGH 10/08/2016 LATOYA CHEUNG MD [...] CHEMO 01/23/2017 BRIAN KOCH Ot M54.2 CERVICALGIA 03/31/2018 RAHEEM ANDREWS Ot F17.210 NICOTINE DEPENDENCE, CIGARETTES, UNCOMPL 03/31/2018 RAHEEM ANDREWS Ot G89.29 OTHER CHRONIC PAIN 03/31/2018 RAHEEM ANDREWS Ot M06.9 RHEUMATOID ARTHRITIS, UNSPECIFIED 03/31/2018 KELLY ANDREWSIS Ot M54.9 DORSALGIA, UNSPECIFIED 03/31/2018 JULIANA, RAHEEM Ot N39.0 URINARY TRACT INFECTION, SITE NOT SPECIF 03/31/2018 KELLY ANDREWSIS Ot Z85.828 PERSONAL HISTORY OF OTHER MALIGNANT NEOP 03/31/2018 KELLY ANDREWSIS Ot Z92.21 PERSONAL HISTORY OF ANTINEOPLASTIC CHEMO 03/31/2018 KELLY ANDREWSIS Ot 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 03/31/2018 KELLY ANDREWSIS Ot Z98.890 OTHER SPECIFIED POSTPROCEDURAL STATES 04/02/2018 RAHEEM ANDREWS Ot F17.210 NICOTINE DEPENDENCE, CIGARETTES, UNCOMPL 04/02/2018 RAHEEM ANDREWS Ot G89.29 OTHER CHRONIC PAIN 04/02/2018 RAHEEM ANDREWS Ot M06.9 RHEUMATOID ARTHRITIS, UNSPECIFIED 04/02/2018 KELLY ANDREWSIS Ot M54.9 DORSALGIA, UNSPECIFIED 04/02/2018 KELLY ANDREWSIS Ot N39.0 URINARY TRACT INFECTION, SITE NOT SPECIF 04/02/2018 KELLY ANDREWSIS Ot Z85.828 PERSONAL HISTORY OF OTHER MALIGNANT NEOP 04/02/2018 KELLY ANDREWSIS Ot Z92.21 PERSONAL HISTORY OF ANTINEOPLASTIC CHEMO 04/02/2018 KELLY ANDREWSIS Ot 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 04/02/2018 KELLY ANDREWSIS Ot Z98.890 OTHER SPECIFIED POSTPROCEDURAL STATES Procedures Code [place] [address] US PELVIC COMPL (REFLEX CPT - 03815) 09/19/2012 62371 PAP SMEAR 09/19/2012 Q0091 PAP SMEAR OBTAIN SMEAR 09/19/2012 83113 UA LONG DIP 06/11/2013 97837 ROUTINE VENIPUNCTURE 06/09/2014 50101 CBC 06/09/2014 22094 CMP 06/09/2014 2287332 GFR CALC (RESULT ONLY) 06/09/2014 79959 SED/ESR RATE RML 06/09/2014 30379 RA FACTOR 06/10/2014 38456 ASO 06/10/2014 ANAANA MALIA ANALYZER (SCREEN) 06/10/2014 56173 TRICHOMONAS (IN-HOUSE) 06/11/2014 48945 US PELVIC COMPL (REFLEX CPT - 02681) 06/11/2014 35389 MAMMOGRAM, SCREENING 06/11/2014 83804 CULTURE UROGENITAL 06/11/2014 39942 GC/CHLAM PROBE (STATE) 06/11/2014 11610 PAP SMEAR 06/11/2014 47879 ROUTINE VENIPUNCTURE 07/20/2014 80703 CBC 07/20/2014 25292 CMP 07/20/2014 [id number] GFR CALC (RESULT ONLY) 07/20/2014 Results Test [...] 10/08/16 14:52 Bacterial throat culture NBS NRG Complete urinalysis with reflex to culture - 03/31/18 17:10 Urine color determination YELLOW NRG Urine clarity determination CLEAR NRG Urine pH measurement by test strip 6 5-9 Specific gravity of urine by test strip 1.020 1.016- 1.022 Urine protein assay by test strip, semi-quantitative 2+ NEGATIVE Urine glucose detection by automated test strip NEGATIVE NEGATIVE Erythrocytes detection in urine sediment by light microscopy 1+ NEGATIVE Urine ketones detection by automated test strip NEGATIVE NEGATIVE Urine nitrite detection by test strip POSITIVE NEGATIVE Urine total bilirubin detection by test strip NEGATIVE NEGATIVE Urine urobilinogen measurement by automated test strip (mass/volume) 1 mg/dL NORMAL Urine leukocyte esterase detection by dipstick 3+ NEGATIVE Automated urine sediment erythrocyte count by microscopy (number/high power field) RARE NRG Automated urine sediment leukocyte count by microscopy (number/high power field ) [HPF] NRG Bacteria detection in urine sediment by light microscopy MODERATE NRG Squamous epithelial cells detection in urine sediment by light microscopy 10-25 NRG Crystals detection in urine sediment by light microscopy NONE NRG Casts detection in urine sediment by light microscopy NONE NRG Mucus detection in urine sediment by light microscopy LARGE NRG Complete urinalysis with reflex to culture YES NRG Bacterial urine culture - 03/31/18 17:10 Bacterial urine culture SEE COMMEN NRG COLONY COUNT . NRG Encounters ACCT No. Visit Date/Time Discharge Status Pt. Type Provider Facility Loc./Unit Complaint [id number] 07/20/2014 10:09:00 07/20/2014 23:59:59 CLS Outpatient MARLEY BLANDON MD [id number] 06/11/2014 11:16:00 06/11/2014 23:59:59 CLS Outpatient CINDY RUIAS DO [id number] 04/06/2014 11:40:00 04/06/2014 23:59:59 CLS Outpatient CINDY URIAS DO [id number] 06/11/2013 10:41:00 06/11/2013 23:59:59 CLS Outpatient EILEEN DUONG APRN [id number] 04/29/2013 11:08:00 04/29/2013 23:59:59 CLS Outpatient GRACE CREWS DDS [id number] 02/18/2013 09:11:00 02/18/2013 23:59:59 CLS Outpatient CINDY URIAS DO [id number] 01/20/2013 09:07:00 01/20/2013 23:59:59 CLS Outpatient CINDY URIAS DO [id number] 09/17/2012 11:19:00 Document Registration [id number] 04/16/2018 10:43:00 04/16/2018 23:59:59 CLS Preadmit BE VALVERDE DO [facility] RAD LUMBAGO W/ SCIANTICA LT SIDE [id number] 03/31/2018 16:49:00 03/31/2018 18:32:00 DIS Emergency RAHEEM ANDREWS [facility] ER BACK HURTING [id number] 01/21/2017 19:47:00 01/21/2017 20:40:00 DIS Emergency BRIAN KOCH [facility] ER NECK BACK PAIN [id number] 01/01/2017 19:45:00 01/01/2017 20:52:00 DIS Emergency EMMY RÍOS APRN [facility] ER RT ELBOW BRUISING/ SWELLING [id number] 10/08/2016 12:31:00 10/08/2016 17:37:00 DIS Emergency LATOYA CHEUNG MD [facility] ER WEAKNESS/DIZZINESS [id number] 06/30/2014 10:19:00 Document Registration [id number] 06/30/2014 10:11:00 Document Registration [id number] 06/30/2014 10:07:00 Document Registration
--- NOTE | 2018-04-28 16:37 | ED Lower Extremity ---
General Chief Complaint: Lower Extremity Stated Complaint: L KNEE OLIVAS'S CYST/MORE SWELLING Source: patient Exam Limitations: no limitations History of Present Illness Date Seen by Provider: Apr 28, 2018 Time Seen by Provider: 16:36 Initial Comments To ER with left knee swelling. She has a history of rheumatoid arthritis. This began to swell last week and posterior left knee and is now swelling in the anterior left knee. She saw her primary care provider for this or told her this was likely a Olivas's cyst. She is concerned that she may have a clot. She is on Xeljanz for the rheumatoid arthritis prescribed by a physician at [facility]. Onset: just prior to arrival Severity: moderate Pain/Injury Location: left leg, left knee Method of Injury: unknown Modifying Factors: Worse With Movement Allergies and Home Medications Allergies Coded Allergies: No Known Drug Allergies (Unverified , 10/08/16) Home Medications Nitrofurantoin Monohyd/M-Cryst 100 Mg Capsule, 1 TAB PO BID Prescribed by: RAHEEM ANDREWS on 03/31/18 1810 Patient Home Medication List Home Medication List Reviewed: Yes Review of Systems Constitutional: see HPI EENTM: see HPI Respiratory: no symptoms reported Cardiovascular: no symptoms reported Genitourinary: no symptoms reported Musculoskeletal: see HPI Skin: no symptoms reported Psychiatric/Neurological: No Symptoms Reported Past Ftbspjh-Rzwjwv-Qnrucn Hx Patient Social History Type Used: Electronic/Vapor 2nd Hand Smoke Exposure: Yes Recent Foreign Travel: No Contact w/Someone Who Travel: No Recent Hopitalizations: No Immunizations Up To Date Tetanus Booster (TDap): Unknown Seasonal Allergies Seasonal Allergies: No Past Medical History Surgeries: Yes (right elbow replacement, SKIN CANCER) Gallbladder Respiratory: No Cardiac: No Neurological: No 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 Genitourinary: No Gastrointestinal: No Musculoskeletal: Yes ( has Auto-Immune disorder also) Arthritis, Rheumatoid Arthritis, Chronic Back Pain Endocrine: Yes (Auto Immune disorder) HEENT: No Cancer: Yes Skin Did You Recieve Any Treatments: Yes What Type of Treatment Did You: Chemotherapy Psychosocial: No Integumentary: Yes (Face cancer surgery in Jan 2016) Blood Disorders: No Family Medical History No Pertinent Family Hx Physical Exam Vital Signs Vital Signs - First Documented 04/28/18 16:24 Temp 98.0 Pulse 90 Resp 18 B/P (MAP) 111/77 (88) Pulse Ox 97 Capillary Refill : Height, Weight, BMI Height: 5'7.00" Weight: 170lbs. 0oz. 77.151841do; BMI Method:Stated General Appearance: WD/WN, no apparent distress HEENT: PERRL/EOMI, normal ENT inspection Respiratory: no respiratory distress, no accessory muscle use Hips: bilateral hip non-tender, bilateral hip normal inspection, bilateral hip normal range of motion Legs: bilateral leg non-tender, bilateral leg normal inspection, bilateral leg normal range of motion Knees: left knee pain, left knee soft tissue tenderness, left knee swelling, left knee other (there is a palpable left knee joint effusion without erythema) Ankles: bilateral ankle non-tender, bilateral ankle normal inspection, bilateral ankle normal range of motion Feet: bilateral foot non-tender, bilateral foot normal inspection, bilateral foot normal range of motion Neurologic/Psychiatric: alert, normal mood/affect, oriented x 3 Skin: normal color, warm/dry Procedures/Interventions Additional Procedures: Arthrocentesis Aspirating Progress Under sterile technique the superior and lateral border of the patella was identified. 1 cm superior and lateral to this, the skin was cleansed with Betadine. Skin was anesthetized with total of 2 mL of 1% lidocaine without epinephrine. An 18-gauge needle attached to a 20 cc syringe was then inserted and a total of 52 mL of clear yellow synovial fluid aspirated. This was sent to lab for cell count/differential and culture. Needle was withdrawn and the site was covered with a Band-Aid. Progress/Results/Core Measures Results/Orders Lab Results Laboratory Tests Test 04/28/18 17:13 Range/Units Body Fluid Source SYNOVIAL Body Fluid Color YELLOW Body Fluid Appearance CLEAR Body Fluid WBC 295 /uL Body Fluid RBC 400 /uL My Orders Orders - EMMY RÍOS APRN Us Venous Lower Ext Lt (04/28/18 16:31) Knee, Left, 3 Views (04/28/18 16:31) Lidocaine 1% Inj 20 Ml (Xylocaine 1% Inj (04/28/18 16:45) Body Fluid Culture (04/28/18 16:37) Body Fluid Cell Count (04/28/18 16:37) Medications Given in ED Current Medications Medications Dose Ordered Sig/Tyrel Route Start Time Stop Time Status Last Admin Dose Admin Lidocaine HCl 20 ml ONCE ONCE INJ 04/28/18 16:45 04/28/18 16:46 DC 04/28/18 17:15 20 ML Vital Signs/I&O 04/28/18 16:24 Temp 98.0 Pulse 90 Resp 18 B/P (MAP) 111/77 (88) Pulse Ox 97 Departure Impression Primary Impression: Effusion, left knee Disposition: HOME, SELF-CARE Condition: Stable Departure-Patient Inst. Decision time for Depature: 17:15 Referrals: BE VALVERDE DO (PCP/Family) Primary Care Physician Patient Instructions: Rheumatoid Arthritis Add. Discharge Instructions: 1. Continue current medications 2. Follow-up with your doctor next week 3. All discharge instructions reviewed with patient and/or family. Voiced understanding. EMMY RÍOS APRN Apr 28, 2018 16:37
[2018-04-28] MEDS ORDERED: LIDOCAINE 1% INJ 20 ML 20 ML VIAL INJ ONE (16:45)
--- NOTE | 2018-04-28 16:56 | Diagnostic Imaging Report ---
EXAMINATION: Left knee radiographs, 3 views. COMPARISON: None. HISTORY: 52-year-old female, left leg swelling and pain. FINDINGS: There is a probable knee joint effusion. There is no pronounced joint space loss. There is no identified acute fracture. There is no identified radiopaque foreign body. IMPRESSION: Probable left knee joint effusion without identified acute bony abnormality. Dictated by: Dictated on workstation # [id number]
[2018-04-28 17:46] LABS: BODY FLUID APPEARENCE CLEAR; BODY FLUID COLOR YELLOW; BODY FLUID RBC COUNT 400 /uL; BODY FLUID SOURCE SYNOVIAL; BODY FLUID WBC TOTAL COUNT 295 /uL
[2018-04-28 18:10] VITALS: BP 111/77
--- NOTE | 2018-04-28 18:16 | Diagnostic Imaging Report ---
INDICATION: Left leg pain. History of Olivas's cyst. TECHNIQUE: Grayscale with color-flow and Doppler waveform evaluation of the left lower extremity deep venous system. CORRELATION STUDY: None. FINDINGS: Color and grayscale sonographic images demonstrate no intraluminal defect within the visualized portion of the common femoral, superficial femoral and/or popliteal veins to suggest thrombus formation. These vessels demonstrate normal response to compression and augmentation. Fluid collection in the popliteal fossa may be reflective of a Olivas's cyst of 6.9 x 2.1 x 4.0 cm in size. IMPRESSION: 1. Negative for deep venous thrombosis of the left leg. 2. Prominent, probable Olivas's cyst. Dictated by: Dictated on workstation # [id number]
[2018-04-28 18:49] LABS: LYMPHOCYTES,BODY FLUID 18 %
== END 2018-04-28 18:10 | disposition home or self-care (01) ==
LOC: EDUNIT# 15:57 → ER 15:59
DX: M25.462 Effusion, left knee (principal); M06.9 Rheumatoid arthritis, unspecified; Z77.22 Contact with and (suspected) exposure to environmental tobacco smoke (acute) (chronic); Z98.890 Other specified postprocedural states; Z96.621 Presence of right artificial elbow joint; Z85.828 Personal history of other malignant neoplasm of skin
CPT/HCPCS: 73562; 87070; 87205; 89051

== ENCOUNTER 2018-05-15 20:43 | Emergency (ER) | payer MEDICARE, MEDICAID ==
[~2018-05-15] VITALS: Ht 170.2 cm; Wt 77.1 kg
--- OUTSIDE RECORDS SUMMARY | 2018-05-15 20:50 | XMS REPORT | Encounter Summary ---
Author Author [facility] Organization [facility] Address Unknown Phone Unavailable Care Team Providers Care Manager Labor Relations Name Role Phone Roro Jama MD Unavailable Justin Dickens DO PCP Reason for Referral * Consult, Test & Treat (Routine) Referred By Contact Referred To Contact Status Reason Specialty Diagnoses / Procedures Roro Jama MD [address] [facility] [address] [place] [address] [facility] Sp[facility] Rehab Med Cl Jefferson Velásquez MD [facility] [address] [place] [address] No Auth Needed Specialty Services Rehabilitation Diagnoses Required Medicine Spinal stenosis of lumbar region, unspecified whether neurogenic claudication present Reason for Visit * Reason Comments Follow-up Phone Call Encounter Details Care Team Description Date Type Department Roro Jama MD [address] [facility] [address] [place] [address] [phone] Follow-up Phone Call 04/17/2018 Telephone [facility] [id number] [address] [place], [place] [id number] Social History Date Tobacco Use Types Packs/Day [...] encounter Miscellaneous Notes * Telephone Encounter - Nlela Melgoza - 05/10/2018 12:22 PM CLINICAL APPEALS RN ED records received from [facility]. [place]. Routing to the RN as leticia ICAL APPEALS RN * Telephone Encounter - Nella Melgoza - 05/09/2018 3:32 PM CLINICAL APPEALS RN Faxed request for ED records and labs to [facility] @ [phone]. Confirmation received @ 2:41pm ICAL APPEALS RN * Telephone Encounter - Jolly Nguyen RN - 05/09/2018 1:48 PM CLINICAL APPEALS RN Sent request to radiology to have images clouded over. Called and advised patient of need for labs, provided patient with phone number to schedule with Spine Center and offered sooner appointment Sunday05/17/2018 8: 30 AM [facility] with Patsy Jackson APRN. Patient confirmed appointment, but also reported that Sunday04/29/2018 she went to ED at [facility] and had fluid drained off of her knee (50+ cc per patient), but states she was told the some fluid remained on knee and currently knee is still swollen. Notified Admin to obtain ED records from 04/29/2018 and any lab results, especially from synovial fluid. Notified scheduling to confirm appointment Sunday05/17/2018 8:30 AM [facility] with Patsy Jackson APRN. Routing to Dr. Jama for review and recommendations - given patient's concern for fluid remaining on knee, proceed with appointment 05/17 with LISBETH? Okay for patient to obtain labs at appointment? Or sooner locally? ICAL APPEALS RN * Telephone Encounter - Nella Melgoza - 04/24/2018 3:50 PM CLINICAL APPEALS RN I called [facility] and was transferred to radiology but after several rings, no one answered. Faxed request for clouded images to radiology @ [phone]. Confirmation received @ 3:44pm ICAL APPEALS RN * Telephone Encounter - Roro Jama MD - 04/24/2018 12:14 [address] APPEALS RN CT lumbar spine 03/31/2018: Degenerative change at L4-5 and L5-S1 with significant canal stenosis worse at L5-S1 level. In setting of description of significant central canal stenosis, will plan to place Spine center referral. ICAL APPEALS RN * Telephone Encounter - Jolly Nguyen RN - 04/18/2018 5:45 PM CLINICAL APPEALS RN Per Dr. Jama, patient needs to update lab monitoring and also to arrange follow-up with CERTIFIED CAREGIVER at [facility]. ICAL APPEALS RN * Telephone Encounter - eNlla Melgoza - 04/18/2018 2:22 PM CLINICAL APPEALS RN Records received from [facility]. Documents put in Image now for scanning and a copy given to the doctor for review. Sending staff message to Dr Jama for review ICAL APPEALS RN * Telephone Encounter - Nella Melgoza - 04/18/2018 1:15 PM CLINICAL APPEALS RN Faxed request for records and imaging to [facility] @ [phone]. Confirmation received @ 12:21pm ICAL APPEALS RN * Telephone Encounter - Jolly Nguyen RN - 04/17/2018 3:56 PM CLINICAL APPEALS RN Patient left voicemail stating she was in the ED 2 weeks ago, has been following PCP in [place], is being treated with antibiotics, is inquiring [...] with Dr. Jama about possible visit with CERTIFIED CAREGIVER. Request sent to Admin to obtain ED notes and MRI report and images from [facility]. ICAL APPEALS RN in this encounter Plan of Treatment Order Schedule Name Priority Associated Diagnoses Ordered: 04/24/2018 AMB REFERRAL TO SPINE CENTER Routine Spinal stenosis of lumbar region, unspecified whether neurogenic claudication present as of this encounter Visit Diagnoses Diagnosis Spinal stenosis of lumbar region, unspecified whether neurogenic claudication present - Primary in this encounter
--- OUTSIDE RECORDS SUMMARY | 2018-05-15 20:50 | XMS REPORT | Clinical Summary ---
Author Author [facility] Organization [facility] Address Unknown Phone Unavailable Care Team Providers Care Process Supervisor Name Role Phone Roro Jama MD Unavailable Justin Dickens DO PCP Source Comments Some departments are not documenting in the electronic medical record. If you do not see the information that you expected, contact Release of Information in the Health Information Management department at [phone] for further assistance in locating additional records.[facility] Allergies Comments Active Allergy Reactions Severity [...] Lot Implanted Type Area Manufactur er 01/27/2018 [id number] / [id number] / [id number] Cement Bone Palacos Lv+G Gentamicin Right: Elbow CHRISTEN:ZIM 40gm [facility] Implanted: Qty: 2 on 06/07/2016 by Иван Martinez MD 11/27/2025 [id number] / [id number] / [id number] Humeral Screw Kit Right: Elbow CHRISTEN:ZIM Implanted: Qty: 1 on 06/07/2016 by [facility] Иван Martinez MD 04/29/2025 [id number] / [id number] / [id number] Christen Nexel Total Elbow Ulnar Right: Elbow Component Implanted: Qty: 1 on 06/07/2016 by Иван Martinez MD 08/27/2025 [id number] / [id number] / [id number] Stem Humeral 100mm 4mm Elbow Right: Elbow CHRISTEN: Implanted: Qty: 1 on 06/07/2016 by [facility] Иван Martinez MD 10/28/[id number] / [id number] / [id number] Kit Articulation Nexel 4 Right: Elbow UNIDENTIFI Implanted: Qty: 1 on 06/07/2016 by [facility] Иван South MD Results Not on filefrom Last 3 Months Insurance Payer Benefit Subscriber ID Type Phone Address Plan / Group MEDICARE MEDIC[place] xxxxxxxxxx [place] Medicaid [id number], [place] MEDICAID Advance Directives Patient has advance care planning documents, and code status on file. For more information, please contact: [facility] [address] [place] [address] Date Inactivated Comments Code Status Date Activated 06/08/2016 9:19 PM Full Code 06/07/2016 8:19 PM Provider has discussed Code Status No, discussion not w/Patient or Family? necessary based on Dx
--- OUTSIDE RECORDS SUMMARY | 2018-05-15 20:52 | XMS REPORT | Continuity of Care Document ---
Author Author 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 05/16/2011 EATON POTLINE MONITOREILEEN Garcia L 724.2 LUMBAGO 05/16/2011 RUIAS DO, CINDY K 722.10 DISPLACEMENT OF LUMBAR [...] DDS, GRACE M V73.81 HPV SCREENING 09/17/2012 EELONORA DDS, GRACE M V76.2 CERVICAL CANCER SCREENING (PAP SMEAR) 09/17/2012 EATON POTLINE MONITOREILEEN L 625.3 DYSMENORRHEA 09/17/2012 EATON POTLINE MONITOR, EILEEN L 626.2 EXCESSIVE OR FREQUENT MENSTRUATION 09/17/2012 EATON POTLINE MONITOR, EILEEN L V73.81 HPV SCREENING 09/17/2012 EATON POTLINE MONITOR, EILEEN L V76.2 CERVICAL CANCER SCREENING (PAP [...] ANDREWS Ot G89.29 OTHER CHRONIC PAIN 03/31/2018 BERNOT, RAHEEM Ot M06.9 RHEUMATOID ARTHRITIS, UNSPECIFIED 03/31/2018 BERNBIBIANA RAHEEM Ot M54.9 DORSALGIA, UNSPECIFIED 03/31/2018 BERNOT, RAHEEM Ot N39.0 URINARY TRACT INFECTION, SITE NOT SPECIF 03/31/2018 BERNOT, RAHEEM Ot Z85.828 PERSONAL HISTORY OF OTHER MALIGNANT [...] ANDREWSIS Ot Z98.890 OTHER SPECIFIED POSTPROCEDURAL STATES 04/28/2018 EMMY RÍOS APRN Ot M06.9 RHEUMATOID ARTHRITIS, UNSPECIFIED 04/28/2018 EMMY RÍOS POTLINE MONITOR Ot M25.462 EFFUSION, LEFT KNEE 04/28/2018 EMMY RÍOS APRN Ot Z77.22 CNTCT W AND EXPSR TO ENVIRON TOBACCO SMO 04/28/2018 EMMY RÍOS POTLINE MONITOR Ot Z85.828 PERSONAL HISTORY OF OTHER MALIGNANT NEOP 04/28/2018 EMMY RÍOS POTLINE MONITOR Ot 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 04/28/2018 EMMY RÍOS POTLINE MONITOR Ot Z98.890 OTHER SPECIFIED POSTPROCEDURAL STATES Procedures Code [place] [address] US PELVIC COMPL (REFLEX CPT - 04921) 09/19/2012 04998 PAP SMEAR 09/19/2012 Q0091 PAP SMEAR OBTAIN SMEAR 09/19/2012 81276 UA LONG DIP 06/11/2013 73876 ROUTINE VENIPUNCTURE 06/09/2014 23952 CBC 06/09/2014 80575 CMP 06/09/2014 1136289 GFR CALC (RESULT ONLY) 06/09/2014 55925 SED/ESR RATE RML 06/09/2014 87366 RA FACTOR 06/10/2014 10384 ASO 06/10/2014 ANAANA MALIA ANALYZER (SCREEN) 06/10/2014 96947 TRICHOMONAS (IN-HOUSE) 06/11/2014 90703 US PELVIC COMPL (REFLEX CPT - 98095) 06/11/2014 34301 MAMMOGRAM, SCREENING 06/11/2014 97115 CULTURE UROGENITAL 06/11/2014 95528 GC/CHLAM PROBE (STATE) 06/11/2014 83535 PAP SMEAR 06/11/2014 99239 ROUTINE VENIPUNCTURE 07/20/2014 65243 CBC 07/20/2014 82453 CMP 07/20/2014 0518803 GFR CALC (RESULT ONLY) 07/20/2014 Results Test [...] SEE COMMEN NRG COLONY COUNT . NRG Body fluid cell count - 04/28/18 17:13 Specimen source identification of body fluid SYNOVIAL NRG Evaluation of color of body fluid YELLOW NRG Determination of appearance of body fluid CLEAR NRG Body fluid leukocytes count (number/volume) 295 /uL NRG Body fluid erythrocytes count (number/volume) 400 /uL NRG Manual body fluid polymorphonuclear cells/100 leukocytes 42 % NRG Manual body fluid mononuclear cells/100 leukocytes 40 % NRG Manual body fluid lymphocytes/100 leukocytes 18 % NRG Gram stain microscopy - 04/28/18 17:13 Gram stain microscopy 04-29-2018, 1705. NRG Bacterial body fluid culture - 04/28/18 17:13 Bacterial body fluid culture NG NRG Encounters ACCT No. Visit Date/Time Discharge Status Pt. Type Provider Facility Loc./Unit Complaint [id number] 07/20/2014 10:09:00 07/20/2014 23:59:59 CLS Outpatient JAMIA TELLES, MARLEY [id number] 06/11/2014 11:16:00 06/11/2014 23:59:59 CLS Outpatient CINDY URIAS DO [id number] 04/06/2014 11:40:00 04/06/2014 23:59:59 CLS Outpatient CINDY URIAS DO [id number] 06/11/2013 10:41:00 06/11/2013 23:59:59 CLS Outpatient EILEEN DUONG APRN [id number] 04/29/2013 11:08:00 04/29/2013 23:59:59 CLS Outpatient GRACE CREWS DDS [id number] 02/18/2013 09:11:00 02/18/2013 23:59:59 CLS Outpatient CINDY URIAS DO [id number] 01/20/2013 09:07:00 01/20/2013 23:59:59 CLS Outpatient CINDY URIAS DO [id number] 09/17/2012 11:19:00 Document Registration [id number] 04/28/2018 15:59:00 04/28/2018 18:10:00 DIS Emergency EMMY RÍOS APRN [facility] ER L KNEE GARCIA'S CYST/MORE SWELLING [id number] 04/16/2018 10:43:00 04/16/2018 23:59:59 CLS Preadmit BE VALVERDE DO D [facility] RAD LUMBAGO W/ SCIANTICA LT SIDE [id number] 03/31/2018 16:49:00 03/31/2018 18:32:00 DIS Emergency RAHEEM ANDREWS [facility] ER BACK HURTING [id number] 01/21/2017 19:47:00 01/21/2017 20:40:00 DIS Emergency BRIAN KOCH [facility] ER NECK BACK PAIN [id number] 01/01/2017 19:45:00 01/01/2017 20:52:00 DIS Emergency EMMY RÍOS APRN [facility] ER RT ELBOW BRUISING/ SWELLING [id number] 10/08/2016 12:31:00 10/08/2016 17:37:00 DIS Emergency LATOYA CHEUNG MD [facility] ER WEAKNESS/DIZZINESS [id number] 05/15/2018 20:46:00 ACT Emergency JANENE TELLES, JUAN PABLO [facility] ER ARM PAIN,TINGLING [id number] 06/30/2014 10:19:00 Document Registration [id number] 06/30/2014 10:11:00 Document Registration [id number] 06/30/2014 10:07:00 Document Registration
[2018-05-15] MEDS ORDERED: LIDOCAINE 1% INJ 20 ML 20 ML VIAL INJ ONE (22:30)
[2018-05-15] MEDS ORDERED: DOXYCYCLINE 100 MG (VIBRAMYCIN) TABLET PO ONE (22:30)
[2018-05-15 23:15] LABS: BF OTHER CELLS 0 %; BODY FLUID APPEARENCE MKD CLDY; BODY FLUID COLOR PALE YELLOW; BODY FLUID RBC COUNT 800 /uL; BODY FLUID SOURCE SYNOVIAL; BODY FLUID WBC TOTAL COUNT 10000 /uL; LYMPHOCYTES,BODY FLUID 14 %
[2018-05-15] MEDS ORDERED: DOXY100T2 PO (23:32)
--- NOTE | 2018-05-15 23:32 | ED General ---
General Chief Complaint: Upper Extremity Stated Complaint: ARM PAIN,TINGLING Nursing Triage Note: RIGHT ELBOW NUMBNESS/TINGLING, NO INJURY Nursing Sepsis Screen: No Definite Risk Source of Information: Patient, Old Records Exam Limitations: No Limitations History of Present Illness Date Seen by Provider: May 15, 2018 Time Seen by Provider: 22:05 Initial Comments This 53-year-old woman with rheumatoid arthritis presents to the emergency room with complaints of numbness in the right upper extremity and a vague distribution both proximal and distal to the right elbow. She has a large swelling over the stair lateral right elbow with the appearance of a bursitis. 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 Therefore, the anatomy of the elbow is somewhat distorted. She also has a rash on the dorsum of the right hand that has been present since yesterday it does not itch and is mildly uncomfortable. When asked about fevers , she reports she has had fevers daily for 2 years due to rheumatoid arthritis. She denies any drug or alcohol use. She is on Xeljanz. Patient's primary care providers Dr. VALVERDE and her knife cutter is Dr. Pride in [place]. Allergies and Home Medications Allergies Coded Allergies: No Known Drug Allergies (Unverified , 10/08/16) Home Medications Doxycycline Hyclate 100 Mg Tablet, 100 MG PO BID Prescribed by: JUAN PABLO LANE on 05/15/18 3867 Patient Home Medication List Home Medication List Reviewed: Yes Review of Systems Review of Systems Constitutional: no symptoms reported EENTM: no symptoms reported Respiratory: no symptoms reported Cardiovascular: no symptoms reported Gastrointestinal: no symptoms reported Genitourinary: no symptoms reported Musculoskeletal: see HPI Skin: see HPI Psychiatric/Neurological: No Symptoms Reported Hematologic/Lymphatic: No Symptoms Reported Immunological/Allergic: no symptoms reported Past Fuhvqyo-Kmcibk-Azqglo Hx Past Med/Social Hx: Reviewed and Corrections made Patient Social History Alcohol Use: Denies Use Recreational Drug Use: No Smoking Status: Current Everyday Smoker Type Used: Electronic/Vapor 2nd Hand Smoke Exposure: No Recent Foreign Travel: No Contact w/Someone Who Travel: No Recent Infectious Disease Expo: No Recent Hopitalizations: No Immunizations Up To Date Tetanus Booster (TDap): Unknown Seasonal Allergies Seasonal Allergies: No Past Medical History Surgeries: Yes (right elbow replacement, SKIN CANCER) Gallbladder, Orthopedic Respiratory: Yes COPD Cardiac: Yes (CHF) Neurological: No : No 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 Genitourinary: No Gastrointestinal: No Musculoskeletal: Yes ( has Auto-Immune disorder also) Arthritis, Rheumatoid Arthritis, Chronic Back Pain Endocrine: Yes (Auto Immune disorder, thyroid nodules, Lyme's disease) HEENT: No Cancer: Yes Skin Did You Recieve Any Treatments: Yes What Type of Treatment Did You: Chemotherapy Psychosocial: No Integumentary: Yes Blood Disorders: No Family Medical History Reviewed Nursing Family Hx No Pertinent Family Hx Physical Exam Vital Signs Vital Signs - First Documented 05/15/18 21:00 Temp 98.2 Pulse 100 Resp 20 B/P (MAP) 135/97 (110) Pulse Ox 94 O2 Delivery Room Air Capillary Refill : Less Than 3 Seconds Height, Weight, BMI Height: 5'7.00" Weight: 170lbs. 0oz. 77.113963xn; BMI Method:Stated General Appearance: No Apparent Distress, WD/WN HEENT: Normal ENT Inspection Neck: Normal Inspection Respiratory: Lungs Clear, Normal Breath Sounds, No Accessory Muscle Use, No Respiratory Distress Cardiovascular: Regular Rate, Rhythm, No Edema, No Murmur Extremity: Other (Fluid-filled discrete swelling on the posterior lateral right elbow. No inflammatory changes. No significant tenderness to palpation. Range of motion intact. There is a subtle linear erythematous rash with slight petechial appearance over the dorsum of the right hand. Radial pulse intact. Capillary refill, sensation, and range of motion in the hand and fingers intact.) Neurologic/Psychiatric: Alert, Oriented x3, No Motor/Sensory Deficits, Normal Mood/Affect, weight reducing technician II-XII Norm as Tested Skin: Normal Color, Warm/Dry, Rash (See above) Procedures/Interventions Progress Patient offered aspiration of the bursa on the right elbow. The swelling of the bursa may be causing some nerve impingement resulting in the numbness she is feeling around the elbow. Patient requested to proceed with aspiration. Skin was cleansed with alcohol. Less than one mL of lidocaine was injected locally for anesthetic. Skin was then prepped with Betadine. Using sterile gloves and supplies, an 18-gauge needle was inserted into the bursal space in a parallel direction to the upper arm taking care to not contact deeper structures. 4-5 mL of cloudy synovial fluid was aspirated. Specimen was sent to lab for further processing. There was near complete collapse of the bursa. Patient tolerated the procedure well. Progress/Results/Core Measures Suspected Sepsis Recent Fever Within 48 Hours: No Infection Criteria Present: None New/Unexplained Altered Menta: No Sepsis Screen: No Definite Risk SIRS Temperature:98.2 Pulse: 100 Respiratory Rate: 20 Blood Pressure 135 /97 Mean: 110 Results/Orders Lab Results Laboratory Tests Test 05/15/18 22:38 Range/Units Body Fluid Source SYNOVIAL Body Fluid Color PALE YELLOW Body Fluid Appearance MKD CLDY Body Fluid WBC 39419 /uL Body Fluid RBC 800 /uL Body Fluid Polynuclear WBCs 82 % Body Fluid Mononuclear WBCs 4 % Body Fluid Lymphocytes 14 % Body Fluid Other Cells 0 % Body Fluid Crystals NOT SEEN My Orders Orders - JUAN PABLO WATTERS MD Lidocaine 1% Inj 20 Ml (Xylocaine 1% Inj (05/15/18 22:30) Doxycycline Hyclate Tablet (Vibramycin T (05/15/18 22:30) Crystals,Body Fluid (05/15/18 22:41) Body Fluid Culture (05/15/18 22:41) Body Fluid Cell Count (05/15/18 22:44) Medications Given in ED Vital Signs/I&O Capillary Refill : Less Than 3 Seconds Blood Pressure Mean: 110 Progress Note : Progress Note Patient was thought to have cellulitis of the right hand based on exam findings. Doxycycline 100 mg was given by oral route. Patient was offered drainage of the bursa which she accepted. Synovial fluid aspirated was cloudy and had sediment. He was therefore sent to lab for processing. There was a mild amount of WBC within the fluid but no bacteria were observed. Findings were consistent with an arthritic etiology. Patient was dismissed home in improved condition. She is advised to follow up closely with her knife cutter and consider referral to an orthopedist for management of further joint problems. Patient also complained of joint swelling of the left knee. This had been previously drained in the ER. There was some accumulation of fluid on this visit but not enough to warrant aspiration. Departure Impression Primary Impression: Olecranon bursitis, right elbow Additional Impressions: Rheumatoid arthritis Qualified Codes: M06.9 - Rheumatoid arthritis, unspecified Cellulitis of right hand Disposition: 01 HOME, SELF-CARE Condition: Improved Departure-Patient Inst. Decision time for Depature: 23:29 Referrals: BE VALVERDE DO (PCP/Family) Primary Care Physician Patient Instructions: Bursitis, Cellulitis (Skin Infection), Adult (DC), Rheumatoid Arthritis Add. Discharge Instructions: Use your medications as previously prescribed. Complete your antibiotics as prescribed. Please note doxycycline may cause sun sensitivity so be careful when outdoors. Follow-up with your knife cutter as soon as possible to discuss your joint swelling and pain. Follow-up with your primary care provider soon as possible regarding the cellulitis in her hand. Return to care if symptoms are worsening, especially if you have worsening fevers. All discharge instructions reviewed with patient and/or family. Voiced understanding. Scripts Doxycycline Hyclate (Doxycycline Hyclate) 100 Mg Tablet 100 MG PO BID, #14 TAB Prov: JUAN PABLO WATTERS MD 05/15/18 JUAN PABLO WATTERS MD May 15, 2018 23:32
[2018-05-15 23:37] VITALS: BP 131/86
== END 2018-05-15 23:34 | disposition home or self-care (01) ==
LOC: EDUNIT# 20:43 → ER 20:46
DX: M70.21 Olecranon bursitis, right elbow (principal); M06.9 Rheumatoid arthritis, unspecified; L03.113 Cellulitis of right upper limb; J44.9 Chronic obstructive pulmonary disease, unspecified; I50.9 Heart failure, unspecified; F17.290 Nicotine dependence, other tobacco product, uncomplicated; Z92.21 Personal history of antineoplastic chemotherapy; Z85.828 Personal history of other malignant neoplasm of skin
CPT/HCPCS: 87070; 87205; 89051; 89060; 99282

== ENCOUNTER → 2018-11-06 | Outpatient (CLI) | payer MEDICARE, MEDICAID ==
[~2018-11-06] MED LIST changes: +DOXY100T2 PO
--- NOTE | 2018-11-06 14:27 | Diagnostic Imaging Report ---
PROCEDURE: US Thyroid. TECHNIQUE: Multiple real-time grayscale images were obtained of the thyroid in various projections. INDICATION: Multinodular goiter. COMPARISON: No prior studies are available for comparison. FINDINGS: Right lobe of the thyroid measures 4.1 x 1.7 x 1.7 cm and left lobe measures 3.6 x 1.8 x 1.4 cm. Isthmus is 2 mm in thickness. Both lobes of the thyroid contain subcentimeter nodules. Nodules in the inferior right lobe are noted, largest approximately 6 mm x 7 mm. Nodules in the mid and inferior pole of left lobe of thyroid noted measuring 5-6 mm in size. No dominant thyroid mass is seen. IMPRESSION: Subcentimeter thyroid nodules bilaterally. No dominant thyroid mass is detected. Dictated by: Dictated on workstation # [id number]
== END ==
LOC: RAD FS 09:57
PROVIDERS: ATTEND Otolaryngology Otolaryngology/Facial Plastic Surgery
DX: E04.2 Nontoxic multinodular goiter (principal)
CPT/HCPCS: 76536

== ENCOUNTER 2019-03-18 16:37 | Emergency (ER) | payer MEDICARE, MEDICAID ==
[~2019-03-18] VITALS: Ht 165 cm; Wt 78.0 kg
[2019-03-18] MEDS ORDERED: LIDOCAINE 1% INJ 20 ML 20 ML VIAL INJ ONE (17:15)
--- NOTE | 2019-03-18 17:30 | NUR ---
69ml cloudy, dark synovial fluid drained from Lt knee by Mj Walter APRN. Synovial fluid sample walked to lab by this RN @ 3080
--- NOTE | 2019-03-18 17:35 | ED Lower Extremity ---
General Chief Complaint: Lower Extremity Stated Complaint: SWOLLEN LT KNEE Nursing Triage Note: PT STATES HX OF RA, HERE FOR FLUID IN LT KNEE, STATES WE HAVE DRAINED IT HERE BEFORE. SWELLING STARTED LAST NIGHT. Nursing Sepsis Screen: No Definite Risk Source: patient Exam Limitations: no limitations History of Present Illness Date Seen by Provider: Mar 18, 2019 Time Seen by Provider: 17:31 Initial Comments To ER with left knee pain and swelling since last night worse today. No fever no chills. She does have rheumatoid arthritis and has had to have his knee drained before due to a large effusion. She follows with [facility]. She also states that she is supposed to have some outpatient labs drawn in the near future for her follow-up appointment next week, she believes they are inflammat ory markers, platelet count and iron studies. She would like these done today here if possible. Onset: this morning Severity: moderate Pain/Injury Location: left knee Method of Injury: unknown Modifying Factors: Worse With Movement Allergies and Home Medications Allergies Coded Allergies: No Known Drug Allergies (Unverified , 10/08/16) Home Medications Doxycycline Hyclate 100 Mg Tablet, 100 MG PO BID Prescribed by: JUAN PABLO LANE on 05/15/18 [id number] Patient Home Medication List Home Medication List Reviewed: Yes Review of Systems Constitutional: see HPI; No chills, No fever EENTM: see HPI Respiratory: no symptoms reported Cardiovascular: no symptoms reported Genitourinary: no symptoms reported Musculoskeletal: see HPI, joint swelling Skin: no symptoms reported Psychiatric/Neurological: No Symptoms Reported Past Pfoeuth-Otmzxd-Dyexzv Hx Patient Social History Alcohol Use: Denies Use Recreational Drug Use: No Smoking Status: Former Smoker Type Used: Electronic/Vapor Former Smoker, Quit: May 02, 2017 2nd Hand Smoke Exposure: No Recent Foreign Travel: No Contact w/Someone Who Travel: No Recent Infectious Disease Expo: No Recent Hopitalizations: No Immunizations Up To Date Tetanus Booster (TDap): Unknown Date of Pneumonia Vaccine: Feb 28, 2017 Seasonal Allergies Seasonal Allergies: No Past Medical History Surgeries: Yes (right elbow replacement, SKIN CANCER) Gallbladder, Orthopedic Respiratory: Yes COPD Cardiac: Yes (CHF) 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 Genitourinary: No Gastrointestinal: No Musculoskeletal: Yes ( has Auto-Immune disorder also RA) Arthritis, Rheumatoid Arthritis, Chronic Back Pain Endocrine: Yes (Auto Immune disorder, thyroid nodules, Lyme's disease) HEENT: No Cancer: Yes Skin Did You Recieve Any Treatments: Yes What Type of Treatment Did You: Chemotherapy Psychosocial: No Integumentary: No Blood Disorders: No Family Medical History No Pertinent Family Hx Physical Exam Vital Signs Vital Signs - First Documented 03/18/19 17:00 Temp 36.7 Pulse 78 Resp 18 B/P (MAP) 118/73 (88) Pulse Ox 99 O2 Delivery Room Air Capillary Refill : Less Than 3 Seconds Height, Weight, BMI Height: 5'7.00" Weight: 170lbs. 0oz. 77.358374ui; 28.00 BMI Method:Stated General Appearance: WD/WN, no apparent distress HEENT: PERRL/EOMI, normal ENT inspection Respiratory: no respiratory distress, no accessory muscle use Hips: bilateral hip non-tender, bilateral hip normal inspection, bilateral hip normal range of motion Legs: bilateral leg non-tender, bilateral leg normal inspection, bilateral leg normal range of motion Knees: left knee pain, left knee soft tissue tenderness, left knee swelling (large palpable effusion without erythema.) Ankles: bilateral ankle non-tender, bilateral ankle normal inspection, bilateral ankle normal range of motion Neurologic/Psychiatric: alert, normal mood/affect, oriented x 3 Skin: normal color, warm/dry Procedures/Interventions Additional Procedures: Arthrocentesis Aspirating Progress Left knee was cleansed with Betadine swabs which was then allowed to dry. An area 1 cm superior and 1 cm lateral to the superior lateral border of the left patella was identified and anesthetized with 1% lidocaine without epinephrine. A larger 18-gauge needle was inserted until synovial fluid was aspirated. Total of 69 mL of cloudy yellow material aspirated. Puncture site covered with Band-Aid. Progress/Results/Core Measures Results/Orders My Orders Orders - EMMY RÍOS APRN Lidocaine 1% Inj 20 Ml (Xylocaine 1% Inj (03/18/19 17:15) Body Fluid Cell Count (03/18/19 17:15) Body Fluid Culture (03/18/19 17:15) Crystals,Body Fluid (03/18/19 17:15) Erythrocyte Sedimentation Rate (03/18/19 17:30) Hs C Reactive Protein (03/18/19 17:30) Cbc With Automated Diff (03/18/19 17:30) Iron Tibc %Sat & Ferritin (03/18/19 17:30) Medications Given in ED Current Medications Medications Dose Ordered Sig/Tyrel Route Start Time Stop Time Status Last Admin Dose Admin Lidocaine HCl 20 ml ONCE ONCE INJ 03/18/19 17:15 03/18/19 17:17 DC 03/18/19 17:22 20 ML Vital Signs/I&O 03/18/19 17:00 Temp 36.7 Pulse 78 Resp 18 B/P (MAP) 118/73 (88) Pulse Ox 99 O2 Delivery Room Air Blood Pressure Mean: 88 POS Departure Impression Primary Impression: Effusion, left knee Additional Impression: Rheumatoid arthritis Disposition: HOME, SELF-CARE Condition: Stable Departure-Patient Inst. Referrals: BE VALVERDE DO (PCP) Primary Care Physician EMMY RÍOS REPORT CHECKER Mar 18, 2019 17:34 POS
[2019-03-18 17:48] LABS: BASOPHILS % (AUTO) 0 % (0-10); EOSINOPHILS # (AUTO) 0.2 10^3/uL (0.0-0.3); EOSINOPHILS % (AUTO) 3 % (0-10); HEMATOCRIT 33 % (35-52); HEMOGLOBIN 10.4 G/DL (11.5-16.0); LYMPHOCYTES # (AUTO) 1.5 X 10^3 (1.0-4.0); LYMPHOCYTES % (AUTO) 20 % (12-44); MEAN CORPUSCULAR HEMOGLOBIN 26 PG (25-34); MEAN CORPUSCULAR HGB CONC 31 G/DL (32-36); MEAN CORPUSCULAR VOLUME 82 FL (80-99); MEAN PLATELET VOLUME 8.7 FL (7.4-10.4); MONOCYTES # (AUTO) 0.6 X 10^3 (0.0-1.0); MONOCYTES % (AUTO) 8 % (0-12); NEUTROPHILS # (AUTO) 5.3 X 10^3 (1.8-7.8); NEUTROPHILS % (AUTO) 69 % (42-75); PLATELET COUNT 575 10^3/uL (130-400); RED CELL DISTRIBUTION WIDTH 15.4 % (10.0-14.5); WHITE BLOOD COUNT 7.7 10^3/uL (4.3-11.0)
[2019-03-18 18:29] LABS: BODY FLUID COLOR YELLOW; BODY FLUID SOURCE SYNOVIAL
[2019-03-18 18:30] LABS: BODY FLUID APPEARENCE MOD CLDY; BODY FLUID RBC COUNT 2350 /uL; BODY FLUID WBC TOTAL COUNT 22500 /uL
[2019-03-18 18:42] VITALS: BP 118/73
[2019-03-18 18:55] LABS: ERYTHROCYTE SEDIMENTATION RATE > 140 MM/HR (0-30)
[2019-03-18 18:57] LABS: BF OTHER CELLS 0 %; LYMPHOCYTES,BODY FLUID 1 %
== END 2019-03-18 18:43 | disposition home or self-care (01) ==
LOC: EDUNIT# 16:37 → ER 16:38
DX: M25.462 Effusion, left knee (principal); M06.9 Rheumatoid arthritis, unspecified; J44.9 Chronic obstructive pulmonary disease, unspecified; I50.9 Heart failure, unspecified; Z96.621 Presence of right artificial elbow joint; Z85.828 Personal history of other malignant neoplasm of skin; Z87.891 Personal history of nicotine dependence
CPT/HCPCS: 36415; 82728; 83540; 85025; 85652; 86141; 87070; 87205; 89051; 89060; 99283

== ENCOUNTER 2019-05-16 05:42 | Outpatient (CLI) | payer MEDICARE, MEDICAID ==
[~2019-05-16] VITALS: Ht 172.7 cm; Wt 77.3 kg
[~2019-05-16 05:42] MED LIST changes: -TRAM50TA2; +TRM50T
[2019-05-16] MEDS ORDERED: PROP40TA5 PO (14:48)
[2019-05-16] MEDS ORDERED: CITA40TA11 PO (14:48)
[2019-05-16] MEDS ORDERED: TIOT18CA2 IH (14:48)
[2019-05-16] MEDS ORDERED: CYCL10TA9 PO (14:48)
[2019-05-16] MEDS ORDERED: HYDR-700 PO (14:48)
[2019-05-16] MEDS ORDERED: FURO40TA4 PO (14:48)
== END 2019-05-16 14:49 | disposition home or self-care (01) ==
LOC: PREOP 05:42
PROVIDERS: ATTEND Surgery
DX: Z01.818 Encounter for other preprocedural examination (principal)

== ENCOUNTER → 2019-08-08 | Outpatient (CLI) | payer MEDICARE, MEDICAID ==
[~2019-08-08] MED LIST changes: +CITA40TA11 PO; +CYCL10TA9 PO; +FURO40TA4 PO; +HYDR-700 PO; +ONDA-105; -ONDA4TAB10; +PROP40TA5 PO; +TIOT18CA2 IH
--- NOTE | 2019-08-08 13:56 | Diagnostic Imaging Report ---
EXAMINATION: Chest 2 view HISTORY: Shortness of breath. COMPARISON: 10/08/2016. FINDINGS: The lung volumes are normal. No focal consolidation is seen. No large pleural effusion or pneumothorax is seen. The cardiomediastinal silhouette is normal in size and contour. No acute osseous abnormality is seen. IMPRESSION: 1. No acute pleuroparenchymal process. Dictated by: Dictated on workstation # [id number]
== END ==
LOC: RAD 13:37
PROVIDERS: ATTEND Nurse Practitioner Family
DX: R06.02 Shortness of breath (principal)
CPT/HCPCS: 71046

== ENCOUNTER 2019-08-27 14:13 | Emergency (ER) | payer MEDICARE, MEDICAID ==
[~2019-08-27] VITALS: Ht 170 cm; Wt 87.8 kg
[2019-08-27] MEDS ORDERED: LIDOCAINE 1% INJ 20 ML 20 ML VIAL INJ ONE (14:30)
--- NOTE | 2019-08-27 14:36 | ED General ---
General Chief Complaint: General Problems/Pain Stated Complaint: RAH;FLUID ON THE KNEE History of Present Illness Date Seen by Provider: Aug 27, 2019 Time Seen by Provider: 14:15 Initial Comments 54 year old female presents for left wrist rash and left knee swelling. 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 She noted a rash to her left wrist, at base of thumb for last week and increasing fluid on her left knee. No fever, cough, COVID 19 exposure, or recent travel. She moved from [facility] to [place] and has not established with a PCP. Timing/Duration: 1 Week Severity: Mild Associated Systoms: Denies Symptoms Allergies and Home Medications Allergies Coded Allergies: prednisone (Verified Allergy, Unknown, MENTAL HAZE, 05/16/19) Home Medications Citalopram Hydrobromide 40 Mg Tablet, 40 MG PO DAILY, (Reported) Cyclobenzaprine HCl 10 Mg Tablet, 10 MG PO TID, (Reported) Furosemide 40 Mg Tablet, 80 MG PO DAILY, (Reported) Hydroxyzine HCl 25 Mg Tablet, 25 MG PO Q8H, (Reported) Propranolol HCl 40 Mg Tablet, 40 MG PO BID, (Reported) Tiotropium [place] 1 Inh Aerp, 1 INH IH DAILY PRN for SHORTNESS OF BREATH, (Reported) Patient Home Medication List Home Medication List Reviewed: Yes Review of Systems Review of Systems Constitutional: no symptoms reported, see HPI Musculoskeletal: see HPI, joint swelling (left knee) Skin: see HPI, rash (left wrist) All Other Systems Reviewed Negative Unless Noted: Yes Past Wzjsrkv-Tqtmjl-Nmznjb Hx Past Med/Social Hx: Reviewed Nursing Past Med/Soc Hx Patient Social History Alcohol Use: Denies Use Recreational Drug Use: No Smoking Status: Former Smoker Type Used: Electronic/Vapor Former Smoker, Quit: May 02, 2017 2nd Hand Smoke Exposure: No Recent Foreign Travel: No Contact w/Someone Who Travel: No Recent Hopitalizations: No Physical Abuse: No Sexual Abuse: No Immunizations Up To Date Tetanus Booster (TDap): Unknown Date of Pneumonia Vaccine: Feb 28, 2017 Seasonal Allergies Seasonal Allergies: No Past Medical History Surgeries: Yes (right elbow replacement, SKIN CANCER) Gallbladder, Orthopedic Respiratory: Yes COPD Cardiac: Yes (lyme's disease, tachycardia) 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 Genitourinary: No Gastrointestinal: Yes Gastroesophageal Reflux Musculoskeletal: Yes ( has Auto-Immune disorder also RA) Arthritis, Rheumatoid Arthritis, Chronic Back Pain Endocrine: Yes (Auto Immune disorder, thyroid nodules, Lyme's disease) HEENT: No Cancer: Yes Skin Did You Recieve Any Treatments: Yes What Type of Treatment Did You: Chemotherapy Psychosocial: No Integumentary: No Blood Disorders: No Family Medical History No Pertinent Family Hx Physical Exam Vital Signs Vital Signs - First Documented 08/27/19 14:16 Temp 37.0 Pulse 77 Resp 18 B/P (MAP) 114/92 (99) Pulse Ox 95 Capillary Refill : Height, Weight, BMI Height: 5'7.00" Weight: 170lbs. 0oz. 77.007898lc; 25.91 BMI Method:Stated General Appearance: No Apparent Distress, WD/WN Neck: Full Range of Motion, Normal Inspection, Non Tender, Supple Respiratory: Chest Non Tender, Lungs Clear, Normal Breath Sounds Cardiovascular: Regular Rate, Rhythm, No Murmur, Normal Peripheral Pulses Gastrointestinal: Normal Bowel Sounds, Non Tender, Soft Extremity: Normal Capillary Refill, Normal Range of Motion, No Calf Tenderness, Swelling (left knee: full range of motion, no instability. No warmth or erythema.) Neurologic/Psychiatric: Alert, Oriented x3, No Motor/Sensory Deficits, Normal Mood/Affect Skin: Normal Color, Warm/Dry, Rash (Minimal noted to left wrist, at base of thumb, trace to no erythema, no instability or crepitus. No warmth or LOM. ) Procedures/Interventions Progress Using sterile technique, left knee, lateral skin prepped with betadine over suprpatellar pouch. Using 18G needle 40 ml of straw colored fluid, compatible with synovial fluid, with tinge of blood easily removed. Compressive bandaid and 2x2 applied. 6 in Michael wrap. Patient tolerated well. Progress/Results/Core Measures Suspected Sepsis SIRS Temperature: Pulse: Respiratory Rate: Blood Pressure / Mean: Results/Orders My Orders Orders - GREGORY PÉREZ Lidocaine 1% Inj 20 Ml (Xylocaine 1% Inj (08/27/19 14:30) Medications Given in ED Current Medications Medications Dose Ordered Sig/Ytrel Route Start Time Stop Time Status Last Admin Dose Admin Lidocaine HCl 20 ml ONCE ONCE INJ 08/27/19 14:30 08/27/19 14:32 DC 08/27/19 14:35 20 ML Vital Signs/I&O 08/27/19 08/27/19 14:16 14:55 Temp 37.0 37.0 Pulse 77 77 Resp 18 18 B/P (MAP) 114/92 (99) 114/92 (99) Pulse Ox 95 95 Capillary Refill : Departure Impression Primary Impression: Rheumatoid arthritis Qualified Codes: M06.09 - Rheumatoid arthritis without rheumatoid factor, multiple sites Additional Impression: Effusion of knee joint, left Disposition: 01 HOME, SELF-CARE Condition: Improved Departure-Patient Inst. Decision time for Depature: 14:45 Referrals: KIMBERLY PUGH MD, RICKY D DO (PCP/Family) Primary Care Physician CAITLIN SUMNER DO Patient Instructions: Rheumatoid Arthritis (DC), Swollen Joints (DC) Add. Discharge Instructions: Ice to Left Knee 20 min every 2 hours. Establish care with a PCP. Michael wrap to left knee and left wrist. Follow up with your RA specialist. Return to the Emergency dept for new, urgent health care problems. All discharge instructions reviewed with patient and/or family. Voiced understanding. GREGORY PÉREZ Aug 27, 2019 14:36
--- NOTE | 2019-08-27 14:43 | NUR ---
40ML OF FLUID REMOVED FROM L KNEE
[2019-08-27 14:55] VITALS: BP 114/92
== END 2019-08-27 14:55 | disposition home or self-care (01) ==
LOC: EDUNIT# 14:13 → ER 14:15
DX: M06.9 Rheumatoid arthritis, unspecified (principal); J44.9 Chronic obstructive pulmonary disease, unspecified; Z96.621 Presence of right artificial elbow joint; Z85.828 Personal history of other malignant neoplasm of skin; Z88.8 Allergy status to other drugs, medicaments and biological substances; Z87.891 Personal history of nicotine dependence
CPT/HCPCS: 99281

== ENCOUNTER → 2020-06-28 | Outpatient (CLI) | payer MEDICARE, MEDICAID ==
[~2020-06-28] MED LIST changes: -FOLI1TAB24; +FOLI1TAB33; -OXYC-465 PO; +OXYC-556 PO
--- NOTE | 2020-06-28 17:00 | Diagnostic Imaging Report ---
INDICATION: Multinodular goiter Thyroid sonography performed in the routine fashion and compared with 11/06/2018. The right thyroid lobe measured 4.4 x 1.6 x 2.0 cm. The left thyroid lobe measured 4.2 x 1.3 x 2.0 cm. On the left side, there are 2 nodules present, measuring less than a centimeter in size, including a nodule in the midportion of the gland medially measuring 6 mm and a nodule in the lateral portion of the gland inferiorly measuring 9 x 6 mm. These are similar to the prior study. On the right side, there is a nodule in the midportion of the gland measuring 7 mm and a nodule inferiorly measuring 1.6 x 1.2 x 1.1 cm. The right-sided nodules are mildly enlarged compared to the prior study, the more inferior nodule had previously measured 4 x 5 mm. The more superior nodule had previously measured 7 x 6 mm. IMPRESSION: There are bilateral thyroid nodules as above. The inferior most right thyroid nodule has increased in size compared to the prior study, now measuring 1.6 x 1.2 cm. The other nodules are about the same. Dictated by: Dictated on workstation # [id number]
== END ==
LOC: RAD 12:00
PROVIDERS: ATTEND Otolaryngology Otolaryngology/Facial Plastic Surgery
DX: E04.2 Nontoxic multinodular goiter (principal)
CPT/HCPCS: 76536

== ENCOUNTER → 2020-07-09 | Outpatient (CLI) | payer MEDICARE, MEDICAID ==
[~2020-07-09] VITALS: Ht 170.2 cm; Wt 85.5 kg
[~2020-07-09] MED LIST changes: +LIDOCAINE 1% INJ 20 ML 20 ML VIAL INJ ONE
--- NOTE | 2020-07-09 12:27 | Diagnostic Imaging Report ---
INDICATION: Right-sided thyroid nodule. Patient brought to the procedure room and placed on the table in the supine position. Ultrasound imaging of the right neck was performed to evaluate appropriate entry site. The right neck was then prepped and draped in usual sterile fashion. Small amount 1% lidocaine was utilized for local anesthesia. A total of 4 passes were made into the dominant solid nodule in the lower pole right lobe of thyroid utilizing 25-gauge needles and fine-needle aspiration technique. A single pass was made with a Rotex needle and Rotex biopsy was performed. Hemostasis was obtained using manual compression. Patient tolerated procedure well and left the department in stable condition. IMPRESSION: Successful ultrasound-guided fine-needle aspiration and Rotex biopsy of dominant solid nodule lower pole right lobe of the thyroid. Pathology results are currently pending. Dictated by: Dictated on workstation # [id number]
== END ==
LOC: RAD 10:28
PROVIDERS: ATTEND Otolaryngology Otolaryngology/Facial Plastic Surgery
DX: E04.1 Nontoxic single thyroid nodule (principal)
CPT/HCPCS: 10005

== ENCOUNTER → 2020-08-23 | Outpatient (CLI) | payer MEDICARE, MEDICAID ==
[~2020-08-23] MED LIST changes: -LIDOCAINE 1% INJ 20 ML 20 ML VIAL INJ ONE
--- NOTE | 2020-08-23 16:57 | Diagnostic Imaging Report ---
PROCEDURE: MRI lumbar spine. TECHNIQUE: Multiplanar, multisequence MRI of the lumbar spine was performed without contrast. DATE: August 23, 2020. COMPARISON: CT lumbar spine March 31, 2018. INDICATION: 55-year-old female, low back pain. Radiculopathy. History of rheumatoid arthritis. FINDINGS: There is grade 1 anterolisthesis of L4 on L5 measuring 4 mm. The additional alignment of the lumbar spine is unremarkable. There is no evidence of a diffuse marrow infiltrating or replacing process. There is no focal concerning bone lesion. The visualized cord and conus medullaris is unremarkable and terminates at the L1 level. There is mild disc height loss at L3-L4. There is mild to moderate disc height loss at L4-L5. L1-L2: There is no disc bulge. The facet joints and ligamentum flavum are unremarkable. There is no foraminal narrowing. There is no spinal canal stenosis. L2-L3: There is a diffuse disc bulge eccentric to the right. The facet joints and ligamentum flavum are unremarkable. There is mild bilateral foraminal narrowing. There is no spinal canal stenosis. L3-L4: There is diffuse disc bulge. There is moderate to severe narrowing of the bilateral lateral recesses. There are mild bilateral facet degenerative changes with ligamentum flavum hypertrophy. There is mild bilateral foraminal narrowing. There is severe spinal canal stenosis. L4-L5: There is a diffuse disc bulge. There are advanced bilateral facet degenerative changes with ligamentum flavum hypertrophy. There is severe narrowing of the bilateral lateral recesses. There is mild bilateral foraminal narrowing. There is severe spinal canal stenosis. There are moderate bilateral facet degenerative changes without ligamentum flavum hypertrophy. There is no foraminal narrowing. There is no spinal canal stenosis. IMPRESSION: 1. Grade 1 anterolisthesis of L4 on L5 relating to facet arthropathy. 2. Multilevel advanced disc and facet degenerative changes of the lumbar spine as described level by level above. Findings are most notable at L3-L4 and L4-L5. Dictated by: Dictated on workstation # [id number]
== END ==
LOC: RAD 14:45
PROVIDERS: ATTEND Physical Medicine & Rehabilitation Pain Medicine
DX: M43.16 Spondylolisthesis, lumbar region (principal); M51.16 Intervertebral disc disorders with radiculopathy, lumbar region
CPT/HCPCS: 72148

== ENCOUNTER → 2021-04-05 | Outpatient (CLI) | payer MEDICARE, MEDICAID ==
[~2021-04-05] MED LIST changes: -CITA40TA11; -CITA40TA11 PO; +CITA40TA13; +CITA40TA13 PO; +CYCL10TA25 PO; -CYCL10TA9 PO
--- NOTE | 2021-04-05 13:10 | Diagnostic Imaging Report ---
PROCEDURE: US Thyroid. TECHNIQUE: Multiple real-time grayscale images were obtained of the thyroid in various projections. INDICATION: Follow-up of thyroid nodules. COMPARISON: 06/28/2020. FINDINGS: The right lobe measures 3.9 x 1.7 x 1.9 cm. The left lobe measures 4.7 x 2 x 1.7 cm. There is an anechoic heterogeneous cystic lesion which is well circumscribed and rather round measuring 7 mm in the upper lobe on the right. There is an isoechoic homogeneous nodule which is well circumscribed inferiorly measuring 1.3 x 1.1 x 1.3 cm. The left lobe shows two isoechoic nodules which are well circumscribed. The largest is in the midportion measuring 8 x 7 x 6 mm. Just superior to this is a nodule measuring 7 x 5 x 4 mm. No associated calcification. IMPRESSION: Multinodular appearance is again demonstrated. No significant change has occurred when compared with previous exam. TI-RADS 3 Dictated by: Dictated on workstation # [id number]
== END ==
LOC: RAD 11:04
PROVIDERS: ATTEND Otolaryngology Otolaryngology/Facial Plastic Surgery
DX: E04.2 Nontoxic multinodular goiter (principal)
CPT/HCPCS: 76536

== ENCOUNTER → 2021-04-05 | Outpatient (CLI) | payer MEDICARE, MEDICAID | LOC: RAD | DX: Z53.9 Procedure and treatment not carried out, unspecified reason (principal) ==

== ENCOUNTER → 2022-05-15 | Outpatient (CLI) | payer MEDICARE, MEDICAID ==
[~2022-05-15] MED LIST changes: -ETAN50PE; +ETAN50PE3
--- NOTE | 2022-05-15 17:55 | Diagnostic Imaging Report ---
PROCEDURE: US Thyroid. TECHNIQUE: Multiple real-time grayscale images were obtained of the thyroid in various projections. INDICATION: Right thyroid nodule. COMPARISON: 04/05/2021. FINDINGS: Right thyroid lobe: Size (cm): 5.8 x 1.5 x 2.0 Echotexture: Normal Vascularity: Normal Nodules: There is a mildly lobulated hypoechoic nodule in the right mid thyroid which appears part solid and part cystic. This appears overall slightly smaller compared to the prior exam. In the inferior right thyroid, there is a isoechoic 1.3 cm nodule which is stable. Isthmus: Size (cm): 0.3 Nodules: None Left thyroid lobe: Size (cm): 4.3 x 1.4 x 1.6 Echotexture: Normal Vascularity: Normal Nodules: In the superior left thyroid, there is an isoechoic 5 mm solid nodule which is slightly decreased in size since the prior study. In the mid left thyroid, there is a hyperechoic 8 mm nodule which is stable since the prior study. IMPRESSION: 1. Multiple small nodules in the thyroid appear stable since the prior study. TI-RADS 3 Dictated by: Dictated on workstation # [id number]
== END ==
LOC: RAD 10:24
PROVIDERS: ATTEND Otolaryngology Otolaryngology/Facial Plastic Surgery
DX: E04.2 Nontoxic multinodular goiter (principal)
CPT/HCPCS: 76536